=== PATIENT | female | born 1975 | race African-American/Black ===

== ENCOUNTER 2019-11-17 07:40 | Outpatient (CLI) | payer BC, SELFPAY ==
--- NOTE | ~2019-11-17 | MR_ITS ---
EXAMINATION: MR shoulder LT wo con DATE: 11/17/2019 09:04 INDICATION: Calcific tendinitis of the left shoulder TECHNIQUE: Magnetic resonance imaging (MRI) of the left shoulder was performed without intravenous co ntrast. Sequences included axial PD-weighted FS FSE, coronal oblique PD-weighted FS FSE, coronal obli que T2-weighted FS FSE, sagittal PD-weighted FS FSE, and sagittal T1-weighted SE. COMPARISON: None. FINDINGS: Coracoacromial arch: The acromion undersurface is curved in morphology (type II). The coracoacromial ligament is normal. M ild acromioclavicular osteoarthritis. Rotator cuff: Mild supraspinatus tendinopathy with 1.5 x 0.8 x 0.4 cm globular region of low signal intensity in th e distal tendon which would be consistent with calcific tendinitis. The infraspinatus, teres minor an d subscapularis tendons are normal. Normal rotator cuff muscle bulk and signal. Biceps tendon, glenoid labrum and glenohumeral cartilage: Long head of the biceps tendon is normal. Subtle linear increased signal extending peripherally into the substance of the superior labrum at the 12:00 position consistent with small labral tear. Glenohu meral cartilage is normal. Fluid: Physiologic amount of fluid in the glenohumeral joint and biceps tendon sheath. No loose osteochondra l bodies. No increased fluid signal in the subacromial/subdeltoid bursa to suggest bursitis. Bones: Normal marrow signal with no edema, fracture or abnormal marrow replacing process. IMPRESSION: 1. Mild supraspinatus tendinopathy without discrete tear but with 1.5 x 0.8 x 0.4 cm globular region of likely calcific tendinitis in the distal tendon. 2. Likely small tear at the 12:00 position of the glenoid labrum seen on only one coronal image which decreases specificity. Reviewed, dictated and finalized at location B. IMPRESSION: 1. Mild supraspinatus tendinopathy without discrete tear but with 1.5 x 0.8 x 0 .4 cm globular region of likely calcific tendinitis in the distal tendon. 2. Likely small tear at the 12:00 position of the glenoid labrum seen on only o ne coronal image which decreases specificity.
== END 2019-11-17 07:41 | disposition home or self-care (01) ==
LOC: ANHIMG 07:54
PROVIDERS: PCP Nurse Practitioner Family; Visit Provider Orthopaedic Surgery
DX: M75.32 Calcific tendinitis of left shoulder (principal)
CPT/HCPCS: 73221

== ENCOUNTER 2019-12-05 09:43 | Outpatient (CLI) | payer BC, SELFPAY ==
--- NOTE | 2019-12-05 09:45 | ECG_ITS ---
Measurements Intervals [place] Rate: 75 P: 13 [place]: 122 QRS: 47 QRSD: 87 T: 69 QT: 353 QTc: 395 Interpretive Statements SINUS RHYTHM NONSPECIFIC T-WAVE ABNORMALITY- HIGH LATERAL LEADS BASELINE ARTIFACT- I, II, III, AVR, AVL, AVF BORDERLINE ECG Electronically Signed On 12-05-2019 10:06:25 CDT by Weston Carcamo D.O.
[2019-12-05 10:19] LABS: Anion Gap 7 mmol/L (8-16); Blood Urea Nitrogen 21 mg/dL (7-17); Calcium 9.5 mg/dL (8.4-10.2); Carbon Dioxide 24 mmol/L (22-30); Chloride 105 mmol/L (98-107); Estimated Glomerular Filt Rate > 60; Glucose 91 mg/dL (65-105); Potassium 3.1 mmol/L (3.4-5.0); Sodium 136 mmol/L (137-145)
== END 2019-12-05 09:44 | disposition home or self-care (01) ==
LOC: ANHSURGERY 09:45
PROVIDERS: Anesthesiology; PCP Nurse Practitioner Family; Visit Provider Orthopaedic Surgery
DX: Z51.81 Encounter for therapeutic drug level monitoring (principal); I10 Essential (primary) hypertension; R94.31 Abnormal electrocardiogram [ECG] [EKG]
CPT/HCPCS: 36415; 80048; 93005

== ENCOUNTER 2019-12-10 01:06 | Outpatient (CLI) | payer BC, SELFPAY ==
[2019-12-10 17:49] LABS: SARS-CoV-2 RNA PCR Negative
== END 2019-12-10 01:07 | disposition home or self-care (01) ==
LOC: ANHCOVIDDT 01:07
PROVIDERS: PCP Nurse Practitioner Family; Visit Provider Orthopaedic Surgery
DX: Z01.812 Encounter for preprocedural laboratory examination (principal); Z20.828 Contact with and (suspected) exposure to other viral communicable diseases
CPT/HCPCS: 87635; C9803; U0003

== ENCOUNTER 2019-12-13 02:38 | Day surgery (SDC) | payer BC, SELFPAY ==
[2019-11-29 10:04] VITALS: BMI 30.9
[2019-12-13] VITALS (12 sets, daily range): BP systolic 99–148; BP diastolic 69–100; PULSE 82–122; RESP 10–20; TEMP 36.1–36.2; O2SAT 95–100
[2019-12-13] MEDS: ACETAMINOPHEN 500 MG TABLET 1000 MG PO (08:45)
--- NOTE | 2019-12-13 09:00 | WPDANESEPPF ---
Anes - Initial Pre Proc Eval Procedure: Operation Date: 12/13/19 10:30 Proposed Procedures p Left Shoulder Arthroscopy, Rotator Cuff Debridement, Subacromial Decompression, Possible Rotator Cuff Repair - Roque Danielson MD Date/Time: 12/13/19 09:00 Surgeon: Roque Danielson MD Pre Op Diagnosis: Calcific Tendonitis Left Shoulder Patient Data Age: 44 Gender: F Height: 5 ft 1 in Weight: 74.39 kg Last Vital Signs Temp 36.2 C L 12/13/19 08:48 Pulse 85 12/13/19 08:48 Resp 20 12/13/19 08:48 BP 99/69 L 12/13/19 08:48 Pulse Ox 100 12/13/19 08:48 Allergies Allergy/AdvReac Type Severity Reaction Status Date / Time No Known Allergies Allergy Unverified 12/13/19 08:55 Home Medications Medication Instructions Recorded Confirmed Type acetazolamide 500 mg 500 mg PO BID 11/07/19 12/13/19 History capsule,extended release amlodipine 2.5 mg tablet 2.5 mg PO DAILY 11/07/19 12/13/19 History hydrochlorothiazide 25 mg tablet 25 mg PO DAILY 11/07/19 12/13/19 History losartan 50 mg tablet 50 mg PO DAILY 11/07/19 12/13/19 History gabapentin 300 mg PO BID 11/29/19 12/13/19 History Patient hx anesthesia problems: none Family hx anesthesia problems: none PMFSH Past Medical History Medical History Calcific tendinitis of left shoulder Hypertension Family History Family History Mother Arthritis Social History Social History Smoking status: Never smoker Alcohol intake: never Substance use: never Spiritual care concerns: No Anes - Eval Final PreProcedure Day of Procedure 12/13/19 09:00 Patient weight: obese Heart: regular rate and rhythm Lungs: clear to auscultation Airway: Mallampati scale class II Neurological: alert and oriented Last oral intake: >/= 8 hours ASA classification: II Emergent: no Anesthetic plan: proceed Anesthesia type and monitoring: general ETT and standard monitoring Informed Consent: The patient's anesthetic plan and its attendant risks and benefits were discussed with the patient/family/POA. Questions were solicited and answers provided to the satisfaction of the patient/family/POA.
[2019-12-13] MEDS: LACTATED RINGERS 1,000 ML 30 ML IV CONT ×2 (09:14→12:14)
[2019-12-13] MEDS: KETOROLAC 15 MG/ML VIAL (*BKC) IV PUSH (09:22)
--- NOTE | 2019-12-13 09:55 | WPDHPUPDATE1 ---
History and Physical Update Update Date/Time: 12/13/19 09:55 History and Physical has been reviewed, including an updated exam of the patient. There are NO changes in the patient's condition. Risks, benefits, and alternatives have been discussed and questions answered. Patient agrees to proceed with procedure.
--- NOTE | 2019-12-13 10:12 | WPDANESPNB ---
Anes - Peripheral Nerve Block Date/Time: 12/13/19 10:12 I have discussed with the patient/family/POA the placement of a peripheral nerve block for post-operative pain management, including associated risks, benefits, complications, and side effects. Alternative methods of post-operative analgesia were detailed. Questions were solicited and answers provided to the satisfaction of the patient/family/POA. Time-Out: A pre-procedural Time-Out was completed immediately before starting the procedure and confirmed: Patient Identification, Site, Procedure, Patient Position and the Availability of Requisite Equipment. Clinical Indications: Acute post-operative pain management requested by the operative surgeon. Nerve Block Insertion Note Anes-nerve block: interscalene left Needle: 22 gauge, stimulating, insulated echogenic needle. Needle length: 50 mm Technique: nerve stimulation lost at (mA) and ultrasound Technique comment: mid2mg,[id number] Injectate: bupivacaine 0.5% with epi 5 mcg/ml (30ml) and dexamethasone (mg) (4mg) Observations: tolerated well Complications: none Procedure start time:: 958 Procedure end time:: 1004
[2019-12-13] MEDS: ceFAZolin 2 GM/D5W 50 ML 2 GM/50 ML BAG IVPB (10:23)
--- NOTE | 2019-12-13 12:17 | P.OP_ITS ---
Procedure Note - Detailed Date of procedure: 12/13/19 Pre-op diagnosis: Calcific Tendonitis Left Shoulder Post-op diagnosis: other ( 1. Calcific tendinitis left shoulder 2. Partial- thickness bursal side rotator cuff tear) Procedure performed: 1. Arthroscopic rotator cuff repair with excision of calcific tendinitis 2. Arthroscopic subacromial decompression Description of procedure: A moderate size focal nidus of calcium deposit at the supraspinatus tendon was identified. This corresponded with the MRI findings. After debridement, a small partial thickness tear was treated with 2 [id number] sutures. Subacromial decompression performed with a type 2 acromion. There were no other significant findings. Anesthesia: GLMA and regional Surgeon: Roque Danielson MD Estimated blood loss (mL): 20 Complications: No immediate complications Condition: stable Disposition: PACU Findings: Preoperative antibiotics were given. Interscalene block was performed. The patient was given a LMA anesthetic. She was carefully placed in the beach chair position. Examined injury anesthesia revealed no abnormal findings. Good normal range of motion. Introduction of the arthroscope through standard anterior and posterior arthroscopic portals. An accessory lateral portal was created. The articular joint appeared normal. There was mild hyperemia of the rotator cuff. Subscapularis and tendon fibers were normal. T he biceps appeared normal. Attention was turned to the subacromial space. A bursectomy was performed. There was mild bursitis. Subtle type 2 acromion. Subacromial decompression performed. The bulbous defect at the lateral margin of the supraspinatus was identified. This corresponded with the MRI. A needle was placed initially from a lateral position and the upper thin bursal tissue was cut. Typical calcium flaky substance was expressed. This was gently shaved and debrided. The defect had good bleeding tissue. The remaining tissue was quite robust and healthy. Simple [id number] suture repair was performed with 2 sutures. Percutaneous needle technique was used to minimize trauma to thethin bursal tissue.
[2019-12-13] MEDS: METOPROLOL TARTRATE INJ 5 MG/5 ML VIAL IV PUSH (12:57)
== END 2019-12-13 14:45 | disposition home or self-care (01) ==
PROVIDERS: PCP Nurse Practitioner Family; Visit Provider Orthopaedic Surgery
PROC: (CPT 29805; principal; 2019-12-13 10:30)
DX: M75.32 Calcific tendinitis of left shoulder (principal); M75.102 Unspecified rotator cuff tear or rupture of left shoulder, not specified as traumatic; G89.18 Other acute postprocedural pain; I10 Essential (primary) hypertension; E66.9 Obesity, unspecified; Z68.30 Body mass index [BMI] 30.0-30.9, adult
CPT/HCPCS: 29827; 29826; 64415; A4565; A9270; J0330; J0690; J1100; J1885; J2250; J2370; J2405; J2704; J3010; J7120

== ENCOUNTER 2020-04-12 12:08 | Outpatient (CLI) | payer BC, SELFPAY ==
[2020-04-12 13:18] LABS: HIV 1/2 Ab P24 Ag Result Negative (Negative)
[2020-04-12 13:20] LABS: Hepatitis B Surface Antigen Negative (Negative)
[2020-04-13 09:32] LABS: Rapid Plasma Reagin Non-Reactive (NonReactive)
== END 2020-04-12 12:09 | disposition home or self-care (01) ==
PROVIDERS: PCP Nurse Practitioner Family; Visit Provider Obstetrics & Gynecology
DX: Z11.3 Encounter for screening for infections with a predominantly sexual mode of transmission (principal); Z11.8 Encounter for screening for other infectious and parasitic diseases
CPT/HCPCS: 36415; 86592; 86695; 86696; 86703; 87340; G0432

== ENCOUNTER 2020-06-01 10:30 | Outpatient (CLI) | payer BC, SELFPAY ==
[2020-06-01 11:59] LABS: Thyroid Stimulating Hormone 0.898 uIU/mL (0.465-4.680)
[2020-06-01 12:23] LABS: Free T4 Free Thyroxine 0.91 ng/mL (0.78-2.19)
== END 2020-06-01 10:31 | disposition home or self-care (01) ==
PROVIDERS: PCP Nurse Practitioner Family; Visit Provider Obstetrics & Gynecology
DX: E04.9 Nontoxic goiter, unspecified (principal)
CPT/HCPCS: 36415; 84439; 84443

== ENCOUNTER 2020-08-07 18:01 | Outpatient (CLI) | payer BC, SELFPAY ==
--- NOTE | ~2020-08-07 | MM_ITS ---
EXAMINATION: MM screening jovany BI w rush HISTORY: Screening mammogram TECHNIQUE: Craniocaudal and mediolateral oblique 3-D tomosynthesis images were obtained and synthetic 2-D images were generated. CAD analysis was submitted and interpreted. COMPARISON: No prior mammogram is available for comparison at this institution. BREAST PARENCHYMAL COMPOSITION: There are scattered areas of fibroglandular density. FINDINGS: There is no evidence of suspicious mass, calcification, or architectural distortion to sugg est malignancy in either breast. There has been no suspicious interval change. IMPRESSION: 1. No mammographic evidence of malignancy. 2. Recommend routine screening mammography in one year. BI-RADS Category 1: Negative Reviewed, dictated and finalized at location A.
== END 2020-08-07 18:02 | disposition home or self-care (01) ==
LOC: ANHIMG 18:03
PROVIDERS: PCP Nurse Practitioner Family; Visit Provider Obstetrics & Gynecology
DX: Z12.31 Encounter for screening mammogram for malignant neoplasm of breast (principal)
CPT/HCPCS: 77063; 77067

== ENCOUNTER 2020-10-27 11:58 | Inpatient (IN) | payer BC, SELFPAY ==
[2020-10-27] VITALS (22 sets, daily range): BP systolic 68–116; BP diastolic 46–64; PULSE 70–89; RESP 11–23; TEMP 36.1–36.6; O2SAT 92–100; BMI 30.1
--- NOTE | ~2020-10-27 | XR_ITS ---
EXAMINATION: XR chest 2V DATE: 10/27/2020 12:47 INDICATION: Shortness of breath, COVID positive TECHNIQUE: PA and lateral views of the chest are obtained. COMPARISON: 05/05/2014 FINDINGS: There are airspace opacities of the right middle and lower lobes. There is no pleural effus ion or pneumothorax. The cardiomediastinal silhouette is normal. The visualized bones and soft tissue s are unremarkable. IMPRESSION: 1. Airspace opacities of the right middle and lower lobes, likely COVID 19 pneumonia. Reviewed, dictated and finalized at location A. IMPRESSION: 1. Airspace opacities of the right middle and lower lobes, likely COVID 19 pneu monia.
--- NOTE | ~2020-10-27 | XR_ITS ---
XR chest 1V portable 10/31/2020 07:18 Indication: Shortness of breath. Procedure: AP portable chest Comparison: 10/17 Findings: Patchy bilateral airspace disease. No significant effusion or pneumothorax. No acute osseou s abnormality. Heart size is normal. No acute osseous abnormality. Impression: 1: Progression of patchy bilateral airspace disease, right greater than left, compatible with pneumon ia. Reviewed, dictated and finalized at location A. Impression: 1: Progression of patchy bilateral airspace disease, right greater than left, c ompatible with pneumonia.
--- NOTE | ~2020-10-27 | CT_ITS ---
EXAMINATION: CT chest abdomen pelvis wo con DATE: 10/28/2020 01:19 INDICATION: Acute renal failure TECHNIQUE: Computed tomography (CT) of the chest, abdomen, and pelvis was performed without intraveno us contrast. Automated exposure control and iterative reconstruction technique were employed. The dos e-length product was 538.15 mGy-cm. COMPARISON: None FINDINGS: CHEST CT: Peripheral and lower lung predominant patchy and bandlike opacities in both lungs, right greater than left with appearance most suggestive of COVID pneumonia. Heart size is normal. No pericardial or ple ural effusion. Thoracic aorta is normal in caliber. No pathologically enlarged thoracic lymphadenopat hy. Bones are unremarkable. ABDOMEN/PELVIS CT: Gallbladder, liver, spleen, pancreas, bilateral adrenal glands are normal. 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 Mild caliectasis without simi hydronephrosis at the upper pole of the left kidney as well as at the right kidney. No nephrol ithiasis the kidneys or hydroureter. Multiple calcifications in the pelvis with location favoring phl eboliths over ureteral stones. Bladder is distended measuring 14.8 x 9.3 x 11.0 cm. Multiple phleboli ths in the pelvis along side the normal uterus and bilateral adnexa. Bowels including the appendix ar e normal. No free intraperitoneal gas or fluid. No pathologically enlarged abdominal or pelvic lympha denopathy. Bones are unremarkable. IMPRESSION: 1. Patchy bilateral lung disease with appearance most suggestive of COVID pneumonia. 2. Partially duplicated left renal collecting system with mild hydronephrosis at the lower pole moiet y with mild caliectasis at the upper pole of the left kidney as well as the right kidney likely relat ed to the prominent distention of the bladder. A few calcifications in the pelvis with locations favo ring phleboliths over ureteral stones. Reviewed, dictated and finalized at location A. IMPRESSION: 1. Patchy bilateral lung disease with appearance most suggestive of COVID pneum onia. 2. Partially duplicated left renal collecting system with mild hydronephrosis a t the lower pole moiety with mild caliectasis at the upper pole of the left kid nurys as well as the right kidney likely related to the prominent distention of t he bladder. A few calcifications in the pelvis with locations favoring phleboli ths over ureteral stones.
--- NOTE | 2020-10-27 12:11 | ECG_ITS ---
Measurements Intervals [place] Rate: 90 P: 53 [place]: 111 QRS: 30 QRSD: 87 T: 54 QT: 360 QTc: 441 Interpretive Statements SINUS RHYTHM WITH SHORT [place] INTERVAL POSSIBLE LEFT ATRIAL ENLARGEMENT NONSPECIFIC ST & T-WAVE ABNORMALITY- ANTEROLAT/INF LEADS BORDERLINE ECG Electronically Signed On 10-27-2020 19:56:21 CDT by Weston Carcamo D.O.
[2020-10-27 12:40] LABS: Basophils Percent Auto 0.2 % (0.2-1.2); Eosinophils Absolute Auto 0.1 K/mm3 (0-0.3); Eosinophils Percent Auto 1.1 % (0-4.4); Hematocrit 38.7 % (37.0-47.0); Hemoglobin 13.2 g/dL (12.0-15.0); Immature Granulocyte Absolute 0.09 K/mm3 (0.00-0.031); Immature Granulocyte Percent A 1.1 % (0-0.5); Lymphocytes Absolute Auto 1.24 K/mm3 (0.9-3.2); Lymphocytes Percent Auto 14.9 % (18.3-44.2); Mean Corpuscular HGB Conc 34.1 g/dl (32-36); Mean Corpuscular Hemoglobin 28.4 pg (26-34); Mean Corpuscular Volume 83.4 fl (80-100); Mean Platelet Volume 9.9 fl (7.4-10.4); Monocytes Absolute Auto 0.6 K/mm3 (0.1-0.6); Monocytes Percent Auto 6.9 % (2.6-8.5); Neutrophils Absolute Auto 6.3 K/mm3 (1.3-6.7); Neutrophils Percent Auto 75.8 % (45.5-73.1); Platelet Count Result 255 k/mm3 (150-375); Red Blood Count 4.64 M/mm3 (4.2-5.4); Red Cell Distribution Width 13.1 % (11.5-14.5); White Blood Count 8.3 K/mm3 (4.5-10.0)
[2020-10-27 13:01] LABS: Anion Gap 12 mmol/L (8-16); Blood Urea Nitrogen 36 mg/dL (7-17); Calcium 8.8 mg/dL (8.4-10.2); Carbon Dioxide 24 mmol/L (22-30); Chloride 99 mmol/L (98-107); Estimated CRCL calculation 22 ml/min; Estimated Glomerular Filt Rate 21; Glucose 139 mg/dL (65-110); Potassium 2.1 mmol/L (3.4-5.0); Sodium 135 mmol/L (137-145)
[2020-10-27 14:14] LABS: Alanine Aminotransferase 133 U/L (4-35); Albumin Level 3.8 g/dL (3.5-5.1); Alkaline Phosphatase 88 U/L (38-126); Aspartate Amino Transferase 72 U/L (14-36); Bilirubin,Total 0.7 mg/dL (0.2-1.3)
[2020-10-27 14:15] LABS: Alveolar/Arterial O2 Gradient 70.5 mmHg; Base Excess ABG 0.5 mEq/l (+/-2.0); Fractional Inspired Oxygen 21 %; HCO3 ABG 24.8 mEq/l (22.0-26.0); Oxygen Content ABG 11.6 %vol (16.0-22.0); Oxyhemoglobin 62.4 % THb (90.0-100.0); PCO2 ABG 38.7 mmHg (35.0-45.0); PO2 FiO2 Ratio Arterial Blood 1.57 %; Total Hemoglobin 13.2 g/dL (12.0-18.0); pH ABG 7.424 (7.350-7.450)
--- NOTE | 2020-10-27 14:17 | ED.GENADULT ---
HPI - General Adult General Chief complaint: Unspecified Stated complaint: Diagnosed with COVID and I'm having symptoms Time Seen by Provider: 10/27/20 13:42 Source: patient and RN notes reviewed Mode of arrival: ambulatory Limitations: no limitations History of Present Illness HPI narrative: Patient is 45 years old -Malaysian female presents with cough and symptom which started on October 16, this is positive on October 18, came because of headache, general body aches and feeling miserable over the last days. History of goiter, patient did not get vaccinated for COVID-19. Patient denies any vomiting or diarrhea. Related Data Home Medications Medication Instructions Recorded Confirmed amlodipine 2.5 mg tablet 2.5 mg PO DAILY 11/07/19 09/13/20 hydrochlorothiazide 25 mg tablet 25 mg PO DAILY 11/07/19 09/13/20 losartan 50 mg tablet 50 mg PO DAILY 11/07/19 09/13/20 gabapentin 300 mg PO BID 11/29/19 09/13/20 Allergies Allergy/AdvReac Type Severity Reaction Status Date / Time No Known Allergies Allergy Verified 10/27/20 13:52 Review of Systems Review of Systems: CONSTITUTIONAL: Denies fever, chills, or sweats. EYES: Denies visual changes, redness, or discharge. ENT: Denies rhinorrhea, congestion, sore throat, or otalgia. CARDIOVASCULAR: Denies chest pain, palpitations, or edema. RESPIRATORY: Denies cough or dyspnea. GASTROINTESTINAL: Denies abdominal pain, nausea, vomiting, or diarrhea. GENITOURINARY: Denies dysuria or hematuria. SKIN: Denies rash or itching. MUSCULOSKELETAL: Denies back pain, joint pain, or myalgia. NEUROLOGIC: Denies headache, numbness, or weakness. PSYCHIATRIC: Denies anxiety or depression. [facility] Past Medical History Medical History Calcific tendinitis of left shoulder HSV (herpes simplex virus) infection Type 1 Hypertension Vaginal delivery x2 Family History Family History Mother Arthritis Social History Social History Smoking status: Never smoker Alcohol intake: never Substance use: never Spiritual care concerns: No Exam Narrative: General appearance: Well-developed, well-nourished Skin: Normal color Head: Normocephalic, nontraumatic Eyes: Clear conjunctiva ENT: Oropharynx normal, ears normal, nose normal Neck: Supple, nontender Chest and respiratory: Airway patent, no respiratory distress, no accessory muscle use Heart: Regular rate/rhythm Abdomen: Soft, nontender, no organomegaly, quiet bowel sounds Vascular: Normal peripheral pulses, normal capillary refill. Musculoskeletal: Normal range of motion, nontender back Neurologic: Alert and oriented ?3, MEDIA COORDINATOR is normal as tested, no gross motor deficit Course Course Emergency Course: Stable Consultations Consultation #1: DR YING Date: 10/27/20 Time: 15:25 Vital Signs Vital signs: Vital Signs Temperature 36.5 C 10/27/20 12:08 Pulse Rate 82 10/27/20 12:08 Respiratory Rate 16 10/27/20 12:08 Blood Pressure 116/58 L 10/27/20 12:08 Pulse Oximetry 99 10/27/20 12:08 Temperature 36.5 C 10/27/20 12:08 Pulse Rate 84 10/27/20 13:26 Respiratory Rate 16 10/27/20 12:08 Blood Pressure 116/58 L 10/27/20 12:08 Pulse Oximetry 99 10/27/20 12:08 Medical Decision Making [facility] Narrative Medical decision making narrative: Covid infection is my concern. Differential diagnosis as below. Labs, chest x-ray, UA ordered. Further plan to follow Differential Diagnosis Differential Diagnosis: Covid pneumonia, viral syndrome, electrolyte imbalance, hypoxia Vital Signs [place]
[2020-10-27 14:18] LABS: PO2 ABG 32.9 mmHg (80.0-100.0)
[2020-10-27 14:19] LABS: Device ROOM AIR; Modified Allen's Test Pass; Oxygen Saturation ABG 64.9 % (95.0-100.0); Site Drawn LEFT RADIAL
[2020-10-27] MEDS: SODIUM CHLORIDE 0.9% IV 1,000 ML 999 ML IV CONT ×2 (14:56→21:04)
[2020-10-27] MEDS: POTASSIUM CHLORIDE 20 MEQ TABLET 40 MEQ PO (14:56)
--- NOTE | 2020-10-27 16:14 | PM.IMHP ---
H&P: HPI History of Present Illness Date/Time: 10/27/20 14:30 Chief Complaint: still having symptoms of COVID Narrative: 45-year-old female with past medical history of hypertension, Jose-Soulier syndrome, and peripheral neuropathy who presented to the ER from home due to persistent COVID symptoms. The patient reports that she was diagnosed with COVID on October 18, 2020 after having initial onset of symptoms on October 16. Her initial symptoms involved diarrhea with numerous large amounts of incontinent stool for the 1st week of symptoms. She also had accompanying nausea and vomiting. She has been having low-grade temperatures but her fevers have for the most part resolved. She has been having a mild nonproductive cough and persistent shortness of breath but her cough and shortness of breath have remained the same or improved since onset of symptoms. She has not had any loss of sense of taste or smell. She denies any abdominal pain. She has been generally fatigued. She does have a chronic history of hypertension and has been taking her antihypertensives despite not feeling well. She has noticed over the last couple of days feeling lightheaded when she stands up. She checked her blood pressure yesterday and it was low with her systolic blood pressure in the 80s. The patient had a couple of blood pressures that were in the 80 systolic while I was evaluating her. All those eased did not make it to the nursing documentation. She has persistent mild headache. Her generalized body aches have worsened over the last couple of days. She reports that she has been having flank pain and pain down bilateral lower back up into her lower thighs has worsened over the last several days. She has not noticed any lower extremity swelling. She has not had a fever in several days. She did not receive COVID vaccine. Review of Systems Review of Systems: 12 systems were reviewed with pertinent positives and negatives per HPI. Except as documented in the HPI, all other systems were reviewed and are negative. [facility] Past Medical History Medical History (Updated 10/27/20 @ 20:50 by Vesna Thomas DO) Calcific tendinitis of left shoulder Goiter HSV (herpes simplex virus) infection Type 1 Hypertension Obesity (BMI 30.0-34.9) Vaginal delivery x2 Surgical History Surgical History (Updated 10/27/20 @ 20:55 by Vesna Thomas DO) History of repair of left rotator cuff (11/2019) History of umbilical hernia repair As a small child Family History Family History (Updated 10/27/20 @ 20:53 by Vesna Thomas DO) Mother Arthritis Hypertension Diabetes mellitus Cerebrovascular accident Father , at age 64 Colon cancer Social History Social History (Updated 10/27/20 @ 20:55 by Vesna Thomas DO) Social History: 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 She has 2 adult sons 1 of which live with her. She is a lifelong nonsmoker, she does not drink alcohol or use illicit substances. Smoking status: Never smoker Alcohol intake: never Substance use: never Spiritual care concerns: No Meds Home Medications and Allergies Home Medications Medication Instructions Recorded Confirmed Type amlodipine 2.5 mg tablet 2.5 mg PO DAILY 11/07/19 10/27/20 History hydrochlorothiazide 25 mg tablet 25 mg PO DAILY 11/07/19 10/27/20 History losartan 50 mg tablet 50 mg PO DAILY 11/07/19 10/27/20 History gabapentin 300 mg PO BID 11/29/19 10/27/20 History medroxyprogesterone 150 mg/mL 150 mg IM [id number] #1 ml 06/01/20 10/27/20 Rx intramuscular syringe metronidazole 0.75 % vaginal gel 1 appful VAGINAL BID 5 Days #70 g 07/20/20 10/27/20 Rx Allergies Allergy/AdvReac Type Severity Reaction Status Date / Time latex Allergy Rash Verified 10/27/20 16:53 Vital Signs Vital Signs - 24 hr 10/27/20 12:08 10/27/20 13:26 10/27/20 13:32 Temperature 97.7 F Pulse Rate 82 84 75 Respiratory Rate 16
[2020-10-27] MEDS: POTASSIUM CHLORIDE 20 MEQ TABLET.ER 40 MEQ PO (16:48)
--- NOTE | 2020-10-27 16:58 | ADMGEN ---
This patient, Karen Blakely, was admitted to 3 [facility] Surg Room 329-01 at 1625. Report received from BOO Padron. Patient/family oriented to hospital policies and general routines including ID bracelet, bed and alarms, visiting hours, pain management, procedures, bathroom and other care routines, personal items, smoking policy, room service/diet, and visiting hours. Information on how to activate the Rapid Response Team has been discussed. Patient/Family are encouraged to report perceived risks to care and to ask questions if they do not understand what they are told or what they should do.
[2020-10-27] MEDS: SODIUM CHLORIDE 0.9% IV 1,000 ML 125 ML IV CONT (19:36)
[2020-10-27] MEDS: GABAPENTIN 300 MG CAPSULE PO (21:04)
[2020-10-27 21:23] LABS: Anion Gap 10 mmol/L (8-16); Blood Urea Nitrogen 32 mg/dL (7-17); Calcium 7.9 mg/dL (8.4-10.2); Carbon Dioxide 21 mmol/L (22-30); Chloride 99 mmol/L (98-107); Estimated CRCL calculation 28 ml/min; Estimated Glomerular Filt Rate 28; Glucose 143 mg/dL (65-110); Sodium 130 mmol/L (137-145)
[2020-10-27 21:24] LABS: Magnesium 2.5 mg/dL (1.6-2.3)
[2020-10-28] MEDS: SODIUM CHLORIDE 0.9% IV 1,000 ML 999 ML IV CONT ×2 (00:19→02:02)
[2020-10-28 00:54] VITALS: BP 94/52
[2020-10-28 04:00] VITALS: BP 97/64; PULSE 81; PULSE 86; RESP 20; TEMP 36; O2SAT 93
[2020-10-28 07:18] LABS: Basophils Percent Auto 0.2 % (0.2-1.2); Eosinophils Absolute Auto 0.2 K/mm3 (0-0.3); Eosinophils Percent Auto 2.5 % (0-4.4); Hematocrit 32.9 % (37.0-47.0); Hemoglobin 10.7 g/dL (12.0-15.0); Immature Granulocyte Absolute 0.07 K/mm3 (0.00-0.031); Immature Granulocyte Percent A 0.8 % (0-0.5); Lymphocytes Absolute Auto 1.36 K/mm3 (0.9-3.2); Lymphocytes Percent Auto 16.2 % (18.3-44.2); Mean Corpuscular HGB Conc 32.5 g/dl (32-36); Mean Corpuscular Hemoglobin 28.2 pg (26-34); Mean Corpuscular Volume 86.8 fl (80-100); Mean Platelet Volume 9.7 fl (7.4-10.4); Monocytes Absolute Auto 0.7 K/mm3 (0.1-0.6); Monocytes Percent Auto 7.8 % (2.6-8.5); Neutrophils Absolute Auto 6.1 K/mm3 (1.3-6.7); Neutrophils Percent Auto 72.5 % (45.5-73.1); Platelet Count Result 226 k/mm3 (150-375); Red Blood Count 3.79 M/mm3 (4.2-5.4); Red Cell Distribution Width 13.3 % (11.5-14.5); White Blood Count 8.4 K/mm3 (4.5-10.0)
[2020-10-28 07:35] LABS: Anion Gap 5 mmol/L (8-16); Blood Urea Nitrogen 22 mg/dL (7-17); Calcium 7.1 mg/dL (8.4-10.2); Carbon Dioxide 16 mmol/L (22-30); Chloride 115 mmol/L (98-107); Estimated CRCL calculation 46 ml/min; Estimated Glomerular Filt Rate 50; Glucose 99 mg/dL (65-110); Magnesium 2.2 mg/dL (1.6-2.3); Phosphorus 3.3 mg/dL (2.5-4.5); Potassium 2.9 mmol/L (3.4-5.0); Sodium 136 mmol/L (137-145)
[2020-10-28 08:00] VITALS: BP 91/55; PULSE 74; PULSE 79; RESP 18; TEMP 36.2; O2SAT 99
[2020-10-28] MEDS: GABAPENTIN 300 MG CAPSULE PO ×2 (09:05→16:23)
[2020-10-28] MEDS: POTASSIUM CHLORIDE 20 MEQ TABLET.ER 40 MEQ PO ×2 (09:05→16:23)
[2020-10-28] MEDS: ENOXAPARIN 30 MG/0.3 ML SYRINGE SUB-Q (09:06)
--- NOTE | 2020-10-28 10:02 | PM.CNNEP ---
Assessment and Plan Assessment and plan (1) BRYAN (acute kidney injury): Code(s): N17.9 - Acute kidney failure, unspecified Status: Acute Assessment and Plan: multifactorial etiology: - prerenal factors (diarrhea and poor oral intake) - hypotension (systolic readings in the 70s - 80s) - ongoing use of MONICA-I and diuretics [employer] - possible COVID-19 improvement noted since admission - normal creatinine at baseline follow-up on CT scan of A/P continue to hold BP medications maximize effort to maintain MAP and optimize renal perfusion follow trend of repeat labs and UOP (2) COVID-19 virus infection: Code(s): U07.1 - COVID-19 Status: Acute Assessment and Plan: not hypoxic at this time treat supportively for now (3) Hypokalemia: Code(s): E87.6 - Hypokalemia Status: Acute Assessment and Plan: due to previous GI losses and poor oral intake magnesium okay replete as needed Discussed case with Dr. Thomas yesterday afternoon. Will continue to follow. History of Present Illness Reason for Consult Consult date: 10/28/20 Reason for consult: acute renal failure Chief Complaint Chief complaint: COVID Infection, BRYAN, Hypokalemia History of Present Illness Narrative: The patient is a 45-year-old female with past medical history as outlined below who presented to [facility] Emergency Room from home due to persistent COVID symptoms. The patient was recently diagnosed with COVID-19 about 10 days ago after having initial symptoms that started on October 17, 2011. these symptoms include diarrhea with large amounts of incontinent stool accompanied by nausea and vomiting with progression to low-grade temperatures/fevers. Other associated symptoms included mild nonproductive cough and shortness of breath which have remained stable if not improved since onset. She denies any loss of sense of taste or smell but endorses generalized fatigue. More recently, she has noted lightheadedness and almost near syncope particularly when she stands up. She checked her blood pressure yesterday on the day of admission and was noted to be in the 80 systolic range despite the fact that she has a history of hypertension. He does report that even though she was not feeling very well and along with the issues of diarrhea, she continued to take her antihypertensive medications. However, her generalized body aches and just not feeling well Along with generalized body aches and flank pain or other real reason that she presented to the emergency room. Workup and evaluation the emergency room did demonstrate significant hypotension with systolic BP readings in the 80s. She received aggressive IV fluid boluses with improvement in her blood pressure. Routine blood test demonstrated a marked decline in her renal function in association with significant hypokalemia. Given her acute kidney injury, hypokalemia, recent COVID-19 positivity, and a constellation of symptoms that led to her presentation, she was admitted the hospital for further evaluation therapy. Since her admission, she has continued to have bouts of low blood pressure requiring frequent boluses of IV fluids with relative good response. Her repeat labs this morning still show persistence of her hypokalemia but with improvement in her renal function/creatinine. Renal consultation was requested due to her acute kidney injury/acute renal failure. Presumably, given the history above, her decline in her kidney function is more related to volume depletion and relative hypotension given improvement in her overall renal function with IV fluid resuscitation in the last 24 hours. This decline in her kidney function was likely potentiate it by ongoing use of her antihypertensive medications which included hydrochlorothiazide and losartan. She did have a CT scan of her abdomen and pelvis y
[2020-10-28 12:00] VITALS: BP 93/59; PULSE 82; PULSE 83; RESP 18; TEMP 36.7; O2SAT 99
[2020-10-28 14:42] LABS: Add Urine Microscopic? NO; Appearance Urine Clear (Clear); Bilirubin Urine Negative (Negative); Blood Urine Negative (Negative); Color Urine Straw (Yellow); Glucose Urine UA Negative (Negative); Ketones Urine Negative (Negative); Leukocyte Esterase Ur Negative LEU/UL (Negative); Nitrate Urine Negative (Negative); Protein Urine Negative (Negative); Specific Grav Ur 1.006 (1.001-1.035); Urobilinogen Urine Negative mg/dL (<2.0)
--- NOTE | 2020-10-28 14:57 | PM.IMPN ---
Progress Note: A&P Assessment and Plan (1) COVID-19 virus infection: Code(s): U07.1 - COVID-19 Status: Acute Assessment and Plan: -Diagnosed 10/18/2020, no respiratory symptoms holding off on steroids and remdesivir -infection is presenting with diarrhea, continue supportive care, replete electrolytes as needed (2) BRYAN (acute kidney injury): Code(s): N17.9 - Acute kidney failure, unspecified Status: Acute Assessment and Plan: -elevated creatinine 1.4 down from 2.9, secondary to diarrhea and hypotension, may have ATN, prerenal etiology likely -continue IV fluids normal saline at 125 cc/hour especially considering hypotension, may need to give further IV fluid boluses if worsening hypotension (3) Acute hypokalemia: Code(s): E87.6 - Hypokalemia Status: Acute Assessment and Plan: -Repleting potassium 2.9, giving 40 mEq potassium chloride b.i.d.., will recheck tomorrow morning -hypokalemia from GI loss -Zofran for nausea Additional Plan Diet: Regular DVT prophylaxis: Lovenox Code status: Full code Disposition: Pending clinical course, likely home 2-3 days Time Spent With Patient Time with patient: 25 - 35 minutes Subjective Date/time seen: 10/28/20 14:57 Patient examined. She has no new complaints today, no respiratory issues. She still has persistent diarrhea. Patient continuing IV fluids for her hypotension and repeating electrolytes for diarrhea losses. Will continue supportive care. Patient denies fever, chills, nausea, vomiting, dyspnea, chest pain, abdominal pain. Review of Systems Review of Systems: All systems reviewed & are unremarkable except as noted in HPI and below Exam Narrative: - GENERAL: Pleasant female in no acute distress laying comfortably in bed. - EYES: EOMI. Anicteric. - HENT: Moist mucous membranes. - LUNGS: Clear to auscultation bilaterally, no wheezing, rhonchi, or rales. - CARDIOVASCULAR: Regular rate and rhythm. No murmur. No JVD. - ABDOMEN: Soft, non-tender and non-distended. No palpable masses. Bowel sounds present in all 4 quadrants - EXTREMITIES: No edema. Peripheral pulses 2+. Non-tender. - NEUROLOGIC: No focal neurological deficits. CN II-XII grossly intact. - PSYCHIATRIC: Awake, Alert and oriented x 3. Appropriate mood and affect. - SKIN: No rashes or lesions. Warm. - LYMPH: No cervical lymphadenopathy. Objective Data Vital Signs Vital Signs: Vital Signs - 24 hr 10/27/20 15:00 10/27/20 15:15 10/27/20 15:30 Temperature Pulse Rate 83 80 76 Respiratory Rate 22 H 14 16 Blood Pressure Pulse Oximetry 99 99 99 10/27/20 15:45 10/27/20 16:00 10/27/20 16:30 Temperature 36.1 C L Pulse Rate 72 78 89 Respiratory Rate 19 17 18 Blood Pressure 99/60 L Pulse Oximetry 99 99 100 10/27/20 20:00 10/27/20 21:18 10/27/20 23:59 Temperature 36.6 C 36.3 C L Pulse Rate 77 70 Respiratory Rate 20 18 Blood Pressure 83/49 L 68/46 L 77/48 L Pulse Oximetry 98 92 10/28/20 00:54 10/28/20 04:00 10/28/20 08:00 Temperature 36.0 C L 36.2 C L Pulse Rate 81 74 Respiratory Rate 20 18 Blood Pressure 94/52 L 97/64 L 91/55 L Pulse Oximetry 93 99 10/28/20 12:00 Temperature 36.7 C Pulse Rate 83 Respiratory Rate 18 Blood Pressure 93/59 L Pulse Oximetry 99 Intake/Output Intake/Output: Intake & Output 10/25/20 10/26/20 10/27/20 10/28/20 23:59 23:59 23:59 23:59 Intake Total 2600 2630 Output Total 2400 Balance 2600 230 Meds/Results Medications: Active Medications Generic Name Dose Route Start Last Admin Trade Name Freq PRN Reason Stop Dose Admin Enoxaparin Sodium 30 mg 10/28/20 09:00 10/28/20 09:06 Enoxaparin 30 Mg/0.3 Ml Syringe SUB-Q 30 mg DAILY PHILIP Administration Gabapentin 300 mg 10/27/20 19:00 10/28/20 09:05 Gabapentin 300 Mg Capsule PO 300 mg BID PHILIP Administration Sodium Chloride 1,000 mls @ 125 mls/hr 10/27/20 14:40 10/28/20 04:21 Normal Saline Iv IV CONT
[2020-10-28 16:00] VITALS: BP 106/63; PULSE 85; PULSE 86; RESP 18; TEMP 36.5; O2SAT 100
[2020-10-28] MEDS: SODIUM CHLORIDE 0.9% IV 1,000 ML 125 ML IV CONT (16:22)
[2020-10-28 20:00] VITALS: BP 104/70; PULSE 82; PULSE 87; RESP 18; TEMP 36.5; O2SAT 95
[2020-10-29] VITALS (7 sets, daily range): BP systolic 100–127; BP diastolic 56–72; PULSE 64–104; RESP 18–20; TEMP 36.1–37.3; O2SAT 96–100
[2020-10-29] MEDS: ACETAMINOPHEN 325 MG TABLET 650 MG PO (04:37)
--- NOTE | 2020-10-29 07:17 | PM.IMPN ---
Progress Note: A&P Assessment and Plan (1) COVID-19 virus infection: Code(s): U07.1 - COVID-19 Status: Acute Assessment and Plan: -Diagnosed 10/18/2020. She is not on oxygen but has been complaining of shortness of breath with minimal exertion like walking in the room. She does not have any cough. Her chest CT does show bilateral airspace disease which is patchy in nature likely secondary to COVID-19 pneumonia. I will start her on steroid with dexamethasone 6 mg IV once a day. She is out of window for remdisivir. Check inflammatory markers and D-dimer in the a.m.. Repeat chest x-ray in 2 days time. -her symptoms are mainly GI symptoms with significant diarrhea, continue supportive care, replete electrolytes as needed (2) BRYAN (acute kidney injury): Code(s): N17.9 - Acute kidney failure, unspecified Status: Acute Assessment and Plan: -creatinine was 2.9 at the time of presentation likely secondary to diarrhea and hypotension, may have ATN, prerenal etiology -I will stop IV fluids. Her creatinine is 1.02 today which is down from 2.9 at the time of presentation. (3) Acute hypokalemia: Code(s): E87.6 - Hypokalemia Status: Acute Assessment and Plan: -repleted today with her serum potassium being 2.8. Continue to monitor. -hypokalemia likely from GI loss -Zofran for nausea (4) Hypertension: Code(s): I10 - Essential (primary) hypertension Status: Acute Assessment and Plan: Borderline hypotensive. Her amlodipine, losartan and hydrochlorothiazide has been put on hold. Resume if blood pressure start to trend up. Additional Plan Diet: Regular DVT prophylaxis: Lovenox Code status: Full code Disposition: Pending clinical course likely home 2-3 days Subjective Date/time seen: 10/29/20 07:17 Her blood pressure is borderline low. She has been complaining of generalized aches and pains. She was on room air but has been complaining of exertional shortness of breath. She denied have any cough. Her CT of the chest showed patchy airspace disease likely secondary to COVID-19 pneumonia. He has been diagnosed to have COVID-19 at [place] on 10/18. She had 1 episode of diarrhea today. She denied have any nausea vomiting or abdominal pain. Review of Systems Review of Systems: All systems reviewed & are unremarkable except as noted in HPI and below Exam Narrative: - GENERAL: Pleasant female in no acute distress laying comfortably in bed. - LUNGS: Clear to auscultation bilaterally, no wheezing, rhonchi, or rales. - CARDIOVASCULAR: S1-S2 - ABDOMEN: Soft, non-tender and non-distended. - EXTREMITIES: No edema. - NEUROLOGIC: Alert oriented - PSYCHIATRIC: Awake, Alert and oriented x 3. Objective Data Vital Signs Vital Signs: Vital Signs - 24 hr 10/28/20 08:00 10/28/20 12:00 10/28/20 16:00 Temperature 36.2 C L 36.7 C 36.5 C Pulse Rate 74 82 86 Respiratory Rate 18 18 18 Blood Pressure 91/55 L 93/59 L 106/63 Pulse Oximetry 99 99 100 10/28/20 20:00 10/29/20 00:00 10/29/20 04:00 Temperature 36.5 C 37.0 C 37.3 C Pulse Rate 82 64 84 Respiratory Rate 18 18 18 Blood Pressure 104/70 100/60 101/56 L Pulse Oximetry 95 96 97 Intake/Output Intake/Output: Intake & Output 10/26/20 10/27/20 10/28/20 10/29/20 23:59 23:59 23:59 23:59 Intake Total 2600 5310 240 Output Total 4200 1900 Balance 2600 1110 -1660 Meds/Results Medications: Active Medications Generic Name Dose Route Start Last Admin Trade Name Freq PRN Reason Stop Dose Admin Acetaminophen 650 mg 10/29/20 03:54 10/29/20 04:37 Acetaminophen 325 Mg Tablet PO 650 mg Q6H PRN Administration Mild Pain (1-3) or Fever Enoxaparin Sodium 30 mg 10/28/20 09:00 10/28/20 09:06 Enoxaparin 30 Mg/0.3 Ml Syringe SUB-Q 30 mg DAILY PHILIP Administration Gabapentin 300 mg 10/27/20 19:00 10/28/20 16:23 Gabapentin 300 Mg Capsule PO 300 mg BID PHILIP
[2020-10-29] MEDS: POTASSIUM CHLORIDE 20 MEQ TABLET.ER 40 MEQ PO ×3 (08:00→18:31)
[2020-10-29] MEDS: GABAPENTIN 300 MG CAPSULE PO ×2 (08:52→18:32)
[2020-10-29] MEDS: ENOXAPARIN 30 MG/0.3 ML SYRINGE SUB-Q (08:53)
[2020-10-29] MEDS: SODIUM CHLORIDE 0.9% IV 1,000 ML 125 ML IV CONT (08:59)
[2020-10-29 09:07] LABS: Anion Gap 4 mmol/L (8-16); Blood Urea Nitrogen 14 mg/dL (7-17); Calcium 7.9 mg/dL (8.4-10.2); Carbon Dioxide 21 mmol/L (22-30); Chloride 111 mmol/L (98-107); Estimated CRCL calculation 63 ml/min; Estimated Glomerular Filt Rate > 60; Glucose 79 mg/dL (65-110); Magnesium 2.2 mg/dL (1.6-2.3); Potassium 2.8 mmol/L (3.4-5.0); Sodium 136 mmol/L (137-145)
--- NOTE | 2020-10-29 22:29 | PC.NURSE ---
Notified lab of new lab order. Said someone was going to be up.
[2020-10-29 23:15] LABS: Anion Gap 7 mmol/L (8-16); Blood Urea Nitrogen 13 mg/dL (7-17); Calcium 8.6 mg/dL (8.4-10.2); Carbon Dioxide 20 mmol/L (22-30); Chloride 109 mmol/L (98-107); Estimated CRCL calculation 78 ml/min; Estimated Glomerular Filt Rate > 60; Glucose 216 mg/dL (65-110); Potassium 3.9 mmol/L (3.4-5.0); Sodium 136 mmol/L (137-145)
[2020-10-30] VITALS (11 sets, daily range): BP systolic 111–139; BP diastolic 68–85; PULSE 75–112; RESP 16–20; TEMP 36–36.5; O2SAT 95–100
[2020-10-30] MEDS: CALCIUM CARBONATE (TUMS) 500 MG (200 MG ELEMENTAL) PO (05:55)
[2020-10-30 07:09] LABS: Basophils Percent Auto 0.2 % (0.2-1.2); Eosinophils Percent Auto 0.1 % (0-4.4); Hematocrit 32.5 % (37.0-47.0); Hemoglobin 10.5 g/dL (12.0-15.0); Immature Granulocyte Absolute 0.17 K/mm3 (0.00-0.031); Immature Granulocyte Percent A 1.4 % (0-0.5); Lymphocytes Absolute Auto 0.98 K/mm3 (0.9-3.2); Lymphocytes Percent Auto 7.9 % (18.3-44.2); Mean Corpuscular HGB Conc 32.3 g/dl (32-36); Mean Corpuscular Hemoglobin 28.8 pg (26-34); Mean Platelet Volume 10.1 fl (7.4-10.4); Monocytes Absolute Auto 0.7 K/mm3 (0.1-0.6); Monocytes Percent Auto 5.6 % (2.6-8.5); Neutrophils Absolute Auto 10.6 K/mm3 (1.3-6.7); Neutrophils Percent Auto 84.8 % (45.5-73.1); Platelet Count Result 293 k/mm3 (150-375); Red Blood Count 3.65 M/mm3 (4.2-5.4); Red Cell Distribution Width 13.3 % (11.5-14.5); White Blood Count 12.4 K/mm3 (4.5-10.0)
[2020-10-30 07:44] LABS: D Dimer 0.64 ug/mL (<0.48)
[2020-10-30] MEDS: GABAPENTIN 300 MG CAPSULE PO ×2 (08:55→17:12)
[2020-10-30] MEDS: ENOXAPARIN 30 MG/0.3 ML SYRINGE SUB-Q (08:55)
[2020-10-30 09:32] LABS: Anion Gap 9 mmol/L (8-16); Blood Urea Nitrogen 13 mg/dL (7-17); CRP 4.7 mg/dL (<1.0); Calcium 8.5 mg/dL (8.4-10.2); Carbon Dioxide 17 mmol/L (22-30); Chloride 109 mmol/L (98-107); Estimated CRCL calculation 78 ml/min; Estimated Glomerular Filt Rate > 60; Glucose 116 mg/dL (65-110); Potassium 3.6 mmol/L (3.4-5.0); Sodium 135 mmol/L (137-145)
--- NOTE | 2020-10-30 12:17 | PM.IMPN ---
Progress Note: A&P Assessment and Plan (1) COVID-19 virus infection: Code(s): U07.1 - COVID-19 Status: Acute Assessment and Plan: Diagnosed 10/18/2020. She is not on oxygen but has been complaining of shortness of breath with minimal exertion like walking in the room. Her chest CT does show bilateral airspace disease which is patchy in nature likely secondary to COVID-19 pneumonia. Continue her on steroid with dexamethasone 6 mg IV once a day. She is out of window for remdisivir. CRP is 4.7. D-dimer is minimally elevated which is 0.64. Repeat chest x-ray in a.m.. Her symptoms are mainly GI symptoms with significant diarrhea, continue supportive care, replete electrolytes as needed. (2) BRYAN (acute kidney injury): Code(s): N17.9 - Acute kidney failure, unspecified Status: Acute Assessment and Plan: -creatinine was 2.9 at the time of presentation likely secondary to diarrhea and hypotension, may have ATN, prerenal etiology - She was hydrated with IV fluids and her creatinine was back to within normal range. IV fluids has already been stopped (3) Acute hypokalemia: Code(s): E87.6 - Hypokalemia Status: Acute Assessment and Plan: -repleted. Continue to monitor. -hypokalemia likely from GI loss -Zofran for nausea (4) Hypertension: Code(s): I10 - Essential (primary) hypertension Status: Acute Assessment and Plan: Borderline hypotensive initially but now blood pressure seems within acceptable range. Her amlodipine, losartan and hydrochlorothiazide has been put on hold. Resume if blood pressure start to trend up. (5) GERD (gastroesophageal reflux disease): Code(s): K21.9 - Gastro-esophageal reflux disease without esophagitis Status: Acute Assessment and Plan: I will start her on pantoprazole for her GERD like symptoms. She takes Zantac at her baseline. Additional Plan Diet: Regular DVT prophylaxis: Lovenox Code status: Full code Disposition: Can likely be discharged in 1-2 days based on her clinical condition. Subjective Date/time seen: 10/30/20 12:17 She is doing well. She remained on room air. She feels that her exertional dyspnea has improved compared to yesterday but still having symptoms with ambulating inside the room. Her cough has been improving as well. She had 1 episode of diarrhea today. Her symptom of aches and pains have improved as well. She was complaining of GERD like symptoms today and does take Zantac at home at her baseline. She denied have any chest pain or shortness of breath at rest. Review of Systems Review of Systems: All systems reviewed & are unremarkable except as noted in HPI and below Exam Narrative: - GENERAL: Pleasant female in no acute distress laying comfortably in bed. - LUNGS: Clear to auscultation bilaterally, no wheezing, rhonchi, or rales. - CARDIOVASCULAR: S1-S2 - ABDOMEN: Soft, non-tender and non-distended. - EXTREMITIES: No edema. - NEUROLOGIC: Alert oriented - PSYCHIATRIC: Awake, Alert and oriented x 3. Objective Data Vital Signs Vital Signs: Vital Signs - 24 hr 10/29/20 16:00 10/29/20 20:00 10/29/20 22:03 Temperature 36.7 C 36.1 C L Pulse Rate 94 104 H 102 H Respiratory Rate 20 18 Blood Pressure 103/67 127/72 Pulse Oximetry 99 100 10/30/20 00:00 10/30/20 00:20 10/30/20 04:00 Temperature 36.4 C Pulse Rate 91 96 76 Respiratory Rate 20 Blood Pressure 114/68 Pulse Oximetry 99 10/30/20 05:02 10/30/20 08:00 10/30/20 08:20 Temperature 36.3 C L 36.5 C Pulse Rate 90 75 88 Respiratory Rate 18 18 Blood Pressure 125/85 113/73 Pulse Oximetry 98 98 10/30/20 11:27 Temperature Pulse Rate Respiratory Rate Blood Pressure Pulse Oximetry 98 Intake/Output Intake/Output: Intake & Output 10/27/20 10/28/20 10/29/20 10/30/20 23:59 23:59 23:59 23:59 Intake Total 2600 5310 2920 600 Output Total 4200 8200 168
[2020-10-31] VITALS: BP 116/72; PULSE 76; RESP 20; TEMP 37.2; O2SAT 99
[2020-10-31 04:00] VITALS: BP 111/72; PULSE 78; RESP 20; TEMP 36.7; O2SAT 97
[2020-10-31 06:41] LABS: Basophils Percent Auto 0.3 % (0.2-1.2); Eosinophils Percent Auto 0.2 % (0-4.4); Hematocrit 31.7 % (37.0-47.0); Hemoglobin 10.6 g/dL (12.0-15.0); Immature Granulocyte Absolute 0.23 K/mm3 (0.00-0.031); Immature Granulocyte Percent A 1.7 % (0-0.5); Lymphocytes Absolute Auto 1.82 K/mm3 (0.9-3.2); Lymphocytes Percent Auto 13.8 % (18.3-44.2); Mean Corpuscular HGB Conc 33.4 g/dl (32-36); Mean Corpuscular Volume 86.8 fl (80-100); Monocytes Absolute Auto 0.8 K/mm3 (0.1-0.6); Monocytes Percent Auto 5.8 % (2.6-8.5); Neutrophils Absolute Auto 10.3 K/mm3 (1.3-6.7); Neutrophils Percent Auto 78.2 % (45.5-73.1); Platelet Count Result 335 k/mm3 (150-375); Red Blood Count 3.65 M/mm3 (4.2-5.4); Red Cell Distribution Width 13.4 % (11.5-14.5); White Blood Count 13.2 K/mm3 (4.5-10.0)
[2020-10-31 06:55] LABS: Anion Gap 9 mmol/L (8-16); Blood Urea Nitrogen 17 mg/dL (7-17); Calcium 8.5 mg/dL (8.4-10.2); Carbon Dioxide 20 mmol/L (22-30); Chloride 110 mmol/L (98-107); Estimated CRCL calculation 70 ml/min; Estimated Glomerular Filt Rate > 60; Glucose 100 mg/dL (65-110); Potassium 3.3 mmol/L (3.4-5.0); Sodium 139 mmol/L (137-145)
[2020-10-31 08:00] VITALS: BP 123/83; PULSE 70; PULSE 85; RESP 18; RESP 20; TEMP 36.3; O2SAT 100; O2SAT 97
[2020-10-31] MEDS: PANTOPRAZOLE 40 MG TABLET PO (08:27)
[2020-10-31] MEDS: ENOXAPARIN 30 MG/0.3 ML SYRINGE SUB-Q (08:27)
[2020-10-31] MEDS: GABAPENTIN 300 MG CAPSULE PO ×2 (08:27→16:19)
[2020-10-31 12:00] VITALS: BP 114/74; PULSE 74; PULSE 78; RESP 18; TEMP 36.4; O2SAT 98
--- NOTE | 2020-10-31 12:28 | PM.IMPN ---
Progress Note: A&P Assessment and Plan (1) BRYAN (acute kidney injury): Code(s): N17.9 - Acute kidney failure, unspecified Status: Acute (2) GERD (gastroesophageal reflux disease): Code(s): K21.9 - Gastro-esophageal reflux disease without esophagitis Status: Acute (3) Hypertension: Code(s): I10 - Essential (primary) hypertension Status: Acute (4) Pneumonia due to 2019 novel coronavirus: Code(s): U07.1 - COVID-19; J12.82 - Pneumonia due to coronavirus disease 2019 Status: Acute (5) Hypokalemia: Code(s): E87.6 - Hypokalemia Status: Acute Additional Plan (1) COVID-19 virus infection: Diagnosed 10/18/2020. She is not on oxygen but has been complaining of shortness of breath with minimal exertion like walking in the room. Her chest CT does show bilateral airspace disease which is patchy in nature likely secondary to COVID-19 pneumonia. Continue her on steroid with dexamethasone 6 mg IV once a day. She is out of window for remdisivir. CRP is 4.7. D-dimer is minimally elevated which is 0.64. Her symptoms are mainly GI symptoms with significant diarrhea, continue supportive care, replete electrolytes as needed. (2) BRYAN (acute kidney injury): -creatinine was 2.9 at the time of presentation likely secondary to diarrhea and hypotension, may have ATN, prerenal etiology - She was hydrated with IV fluids and her creatinine was back to within normal range. IV fluids has already been stopped (3) Acute hypokalemia: - Replace. Continue to monitor. -hypokalemia likely from GI loss -Zofran for nausea (4) Hypertension: Borderline hypotensive initially but now blood pressure seems within acceptable range. Her amlodipine, losartan and hydrochlorothiazide has been put on hold. Resume if blood pressure start to trend up. (5) GERD (gastroesophageal reflux disease): Continue pantoprazole for her GERD like symptoms. She takes Zantac at her baseline. Diet: Regular DVT prophylaxis: Lovenox Code status: Full code Disposition: Can likely be discharged in 1-2 days based on her clinical condition. Subjective Date/time seen: 10/31/20 12:28 She reports uneventful night and feeling better this morning. Hemodynamically stable. reports some shortness of breath when she lays on her left side. Exam Narrative: Gen: Alert, NAD Abd: Soft, NT, ND Heart: RRR Lungs: CTAB Ext: No lower extremity edema Objective Data Vital Signs Vital Signs: Vital Signs - 24 hr 10/30/20 16:00 10/30/20 16:15 10/30/20 20:00 Temperature 97.0 F L 97.7 F Pulse Rate 86 89 88 Respiratory Rate 16 20 Blood Pressure 111/71 139/78 Pulse Oximetry 95 100 10/31/20 00:00 10/31/20 04:00 10/31/20 08:00 Temperature 98.9 F 98.1 F 97.3 F L Pulse Rate 76 78 70 Respiratory Rate 20 20 18 Blood Pressure 116/72 111/72 123/83 Pulse Oximetry 99 97 100 Intake/Output Intake/Output: Intake & Output 10/28/20 10/29/20 10/30/20 10/31/20 23:59 23:59 23:59 23:59 Intake Total 5310 2920 1630 490 Output Total 4200 1900 850 Balance 1110 1020 780 490 Meds/Results Medications: Active Medications Generic Name Dose Route Start Last Admin Trade Name Freq PRN Reason Stop Dose Admin Acetaminophen 650 mg 10/29/20 03:54 10/29/20 04:37 Acetaminophen 325 Mg Tablet PO 650 mg Q6H PRN Administration Mild Pain (1-3) or Fever Amlodipine Besylate 2.5 mg 10/29/20 09:00 10/29/20 14:06 Amlodipine Besylate 2.5 Mg Tablet PO Not Given DAILY [facility] Calcium Carbonate 200 mg 10/30/20 05:27 10/30/20 05:55 Calcium Carbonate (Tums) 500 Mg (200 Mg Elemental) PO 200 mg Q6H PRN Administration Indigestion Dexamethasone Sodium Phosphate 6 mg 10/29/20 13:00 10/31/20 08:26 Dexamethasone Sod Phos Inj 10 Mg/Ml 1 Ml Vial IV PUSH 11/07/20 09:01 6 mg DAILY PHILIP Administration Enoxaparin Sodium 30 mg 10/28/20 09:00 10/31/20 08:27 Enoxaparin 30 Mg/0.3 Ml Syringe SUB-Q 30 mg DAILY PHILIP
[2020-10-31] MEDS: POTASSIUM CHLORIDE 20 MEQ TABLET PO ×2 (13:01→22:38)
[2020-10-31 16:00] VITALS: BP 116/76; PULSE 76; PULSE 84; RESP 18; TEMP 36; O2SAT 100
[2020-10-31 20:00] VITALS: BP 120/78; PULSE 67; PULSE 68; RESP 18; TEMP 37.1; O2SAT 99
[2020-11-01 00:25] VITALS: BP 115/71; PULSE 68; RESP 18; TEMP 36.2; O2SAT 99
[2020-11-01 04:54] VITALS: BP 112/72; PULSE 68; RESP 18; TEMP 36.6; O2SAT 98
[2020-11-01 07:21] LABS: Anion Gap 6 mmol/L (8-16); Blood Urea Nitrogen 15 mg/dL (7-17); Calcium 8.4 mg/dL (8.4-10.2); Carbon Dioxide 21 mmol/L (22-30); Chloride 111 mmol/L (98-107); Estimated CRCL calculation 78 ml/min; Estimated Glomerular Filt Rate > 60; Glucose 84 mg/dL (65-110); Potassium 3.2 mmol/L (3.4-5.0); Sodium 138 mmol/L (137-145)
--- NOTE | 2020-11-01 07:22 | PM.IMPN ---
Progress Note: A&P Assessment and Plan (1) BRYAN (acute kidney injury): Code(s): N17.9 - Acute kidney failure, unspecified Status: Acute Assessment and Plan: -creatinine was 2.9 at the time of presentation likely secondary to diarrhea and hypotension, may have ATN, prerenal etiology - She was hydrated with IV fluids and her creatinine was back to within normal range. IV fluids has already been stopped (2) GERD (gastroesophageal reflux disease): Code(s): K21.9 - Gastro-esophageal reflux disease without esophagitis Status: Acute Assessment and Plan: I will start her on pantoprazole for her GERD like symptoms. She takes Zantac at her baseline. (3) Hypertension: Code(s): I10 - Essential (primary) hypertension Status: Acute Assessment and Plan: Borderline hypotensive initially but now blood pressure seems within acceptable range. Her amlodipine, losartan and hydrochlorothiazide has been put on hold. Resume if blood pressure start to trend up. (4) Pneumonia due to 2019 novel coronavirus: Code(s): U07.1 - COVID-19; J12.82 - Pneumonia due to coronavirus disease 2019 Status: Acute (5) Hypokalemia: Code(s): E87.6 - Hypokalemia Status: Acute Additional Plan (1) COVID-19 virus infection: Diagnosed 10/18/2020. She is not on oxygen but has been complaining of shortness of breath with minimal exertion like walking in the room. Her chest CT does show bilateral airspace disease which is patchy in nature likely secondary to COVID-19 pneumonia. Continue her on steroid with dexamethasone 6 mg IV once a day. She is out of window for remdisivir. CRP is 4.7. D-dimer is minimally elevated which is 0.64. Her symptoms are mainly GI symptoms with significant diarrhea, continue supportive care, replete electrolytes as needed. (2) BRYAN (acute kidney injury): -creatinine was 2.9 at the time of presentation likely secondary to diarrhea and hypotension, may have ATN, prerenal etiology - She was hydrated with IV fluids and her creatinine was back to within normal range. IV fluids has already been stopped (3) Acute hypokalemia: - Replace. Continue to monitor. -hypokalemia likely from GI loss -Zofran for nausea (4) Hypertension: Borderline hypotensive initially but now blood pressure seems within acceptable range. Her amlodipine, losartan and hydrochlorothiazide has been put on hold. Resume if blood pressure start to trend up. (5) GERD (gastroesophageal reflux disease): Continue pantoprazole for her GERD like symptoms. She takes Zantac at her baseline. Diet: Regular DVT prophylaxis: Lovenox Code status: Full code Disposition: Can likely be discharged in 1-2 days based on her clinical condition. Subjective Date/time seen: 11/01/20 07:22 Review of Systems Review of Systems: All systems reviewed & are unremarkable except as noted in HPI and below Exam Narrative: Gen: Alert, NAD Abd: Soft, NT, ND Heart: RRR Lungs: CTAB Ext: No lower extremity edema Objective Data Vital Signs Vital Signs: Vital Signs - 24 hr 10/31/20 08:00 10/31/20 12:00 10/31/20 16:00 Temperature 36.3 C L 36.4 C 36.0 C L Pulse Rate 70 78 84 Respiratory Rate 18 18 18 Blood Pressure 123/83 114/74 116/76 Pulse Oximetry 100 98 100 10/31/20 20:00 11/01/20 00:25 11/01/20 04:54 Temperature 37.1 C 36.2 C L 36.6 C Pulse Rate 68 68 68 Respiratory Rate 18 18 18 Blood Pressure 120/78 115/71 112/72 Pulse Oximetry 99 99 98 Intake/Output Intake/Output: Intake & Output 10/29/20 10/30/20 10/31/20 11/01/20 23:59 23:59 23:59 23:59 Intake Total 2920 1630 2270 450 Output Total 1900 850 Balance 6558 913 0918 450 Meds/Results Medications: Active Medications Generic Name Dose Route Start Last Admin Trade Name Freq PRN Reason Stop Dose Admin Acetaminophen 650 mg 10/29/20 03:54 10/29/20 04:37 Acetaminophen 325 Mg Tablet PO 650 mg Q6H PRN Administration Mild
[2020-11-01] MEDS: PANTOPRAZOLE 40 MG TABLET PO (08:19)
[2020-11-01] MEDS: GABAPENTIN 300 MG CAPSULE PO (08:19)
[2020-11-01] MEDS: ENOXAPARIN 30 MG/0.3 ML SYRINGE SUB-Q (08:19)
[2020-11-01 10:30] VITALS: BP 122/87; PULSE 79; RESP 20; TEMP 36.4; O2SAT 99
--- NOTE | 2020-11-01 12:40 | PM.DS ---
DS: Admitting Diagnosis Admitting Diagnosis Acute kidney injury Hypertension Hypokalemia COVID-19 infection with pneumonia DS: Discharge Diagnosis Discharge Diagnosis (1) BRYAN (acute kidney injury): Code(s): N17.9 - Acute kidney failure, unspecified Status: Acute Assessment and Plan: -creatinine was 2.9 at the time of presentation likely secondary to diarrhea and hypotension, may have ATN, prerenal etiology - She was hydrated with IV fluids and her creatinine was back to within normal range. IV fluids has already been stopped (2) GERD (gastroesophageal reflux disease): Code(s): K21.9 - Gastro-esophageal reflux disease without esophagitis Status: Acute Assessment and Plan: She was on pantoprazole here in the hospital with good symptomatic improvement. She takes Zantac at her baseline. (3) Hypertension: Code(s): I10 - Essential (primary) hypertension Status: Acute Assessment and Plan: Borderline hypotensive initially but now blood pressure seems within acceptable range. Her amlodipine, losartan and hydrochlorothiazide has been put on hold. I will resume her amlodipine 2.5 mg at the time of discharge. She will continue to hold losartan and hydrochlorothiazide. She was encouraged to see her primary care physician in 1 week time for blood pressure check and further titration of her medication. Her blood pressures remain within acceptable range while she was off all her antihypertensive medications. (4) Pneumonia due to 2019 novel coronavirus: Code(s): U07.1 - COVID-19; J12.82 - Pneumonia due to coronavirus disease 2019 Status: Acute Assessment and Plan: Diagnosed 10/18/2020. She is not on oxygen but has been complaining of shortness of breath with minimal exertion like walking in the room. Her chest CT does show bilateral airspace disease which is patchy in nature likely secondary to COVID-19 pneumonia. She was on dexamethasone for almost 3 days here and will be discharged on 2 days of prednisone. She is out of window for remdisivir. CRP is 4.7. D-dimer is minimally elevated which is 0.64. Her symptoms are mainly GI symptoms with significant diarrhea, continue supportive care, replete electrolytes as needed. (5) Hypokalemia: Code(s): E87.6 - Hypokalemia Status: Acute Assessment and Plan: -repleted. Continue to monitor. -hypokalemia likely from GI loss -Zofran for nausea DS: Summary Hospital Course Hospital Course: As above Time Spent with Patient Time attestation: Total time spent providing and/or coordinating discharge services: >35 minutes Exam Narrative: - GENERAL: Pleasant female in no acute distress laying comfortably in bed. - LUNGS: Clear to auscultation bilaterally, no wheezing, rhonchi, or rales. - CARDIOVASCULAR: S1-S2 - ABDOMEN: Soft, non-tender and non-distended. - EXTREMITIES: No edema. - NEUROLOGIC: Alert oriented - PSYCHIATRIC: Awake, Alert and oriented x 3. DS: Data Data Completed and Pending Labs on day of discharge: Labs from last 24 hours 11/01/20 06:30 Sodium 138 Potassium 3.2 L Chloride 111 H Carbon Dioxide 21 L Anion Gap 6 L BUN 15 Creatinine 0.80 Estim Creat Clear Calc 78 Estimated GFR > 60 Glucose 84 Calcium 8.4 Discharge Plan Discharge Attending physician on discharge: Heather Valladares Consulting providers: Nancy López Discharging Clinician: Heather Valladares Anticipated Discharge Date/Time: 11/01/20 11:20 Patient Disposition: Home, Self-Care Activity: as tolerated Diet: heart healthy Patient Instructions: Antibiotic Form, Hypokalemia (DC), COVID-19 (Coronavirus Disease 2019) (DC), COVID-19 and Chronic Health Conditions (DC) Stand Alone Forms: General Discharge Information Follow-up/Referrals: Joey,BREANN Murphy [Primary Care Provider] - 2 Weeks Discharge Medications: New prednisone 20 mg tablet 40 mg PO DAILY Qty:
== END 2020-11-01 15:14 | disposition home or self-care (01) | DRG 177 ==
LOC: ANHED 15:25 → ANH3MEDSUR 16:07
PROVIDERS: Internal Medicine Nephrology; Nurse Practitioner; Student in an Organized Health Care Education/Training Program; Admitting Provider Internal Medicine; Emergency Provider Emergency Medicine; PCP Nurse Practitioner Family; Visit Provider Internal Medicine Critical Care Medicine
DX: U07.1 COVID-19 (principal); J12.82 Pneumonia due to coronavirus disease 2019; N17.9 Acute kidney failure, unspecified; E87.6 Hypokalemia; I10 Essential (primary) hypertension; K21.9 Gastro-esophageal reflux disease without esophagitis; E66.9 Obesity, unspecified; Z68.30 Body mass index [BMI] 30.0-30.9, adult; Z79.899 Other long term (current) drug therapy
CPT/HCPCS: 36415; 36600; 71045; 71046; 71250; 74176; 80048; 80076; 81003; 82805; 83735; 84100; 85025; 85380; 86140; 93005; 96365; 96366; 99285; A9270; J0131; J1100; J1650; J3480; J7030

== ENCOUNTER 2020-12-09 09:34 | Outpatient (CLI) | payer BC, SELFPAY ==
--- NOTE | ~2020-12-09 | US_ITS ---
EXAMINATION: US venous doppler [facility] DATE: 12/09/2020 10:12 INDICATION: Bilateral lower limb pain TECHNIQUE: Grayscale ultrasound images without and with compression and Doppler ultrasound images of the bilateral lower extremity veins were obtained. COMPARISON: None. FINDINGS: The visualized portions of right common femoral vein, profunda (deep) femoral vein, femoral vein, pop liteal vein, posterior tibial veins, peroneal veins, gastrocnemius vein and greater saphenous vein ou tflow are patent. The visualized portions of left common femoral vein, profunda femoral vein, femoral vein, popliteal v ein, posterior tibial veins, peroneal veins, gastrocnemius vein and greater saphenous vein outflow ar e patent. IMPRESSION: 1. No deep venous thrombosis in either lower limb. Reviewed, dictated and finalized at location A.
== END 2020-12-09 09:35 | disposition home or self-care (01) ==
LOC: ANHIMG 09:37
PROVIDERS: PCP Nurse Practitioner Family; Visit Provider Nurse Practitioner Family
DX: M79.661 Pain in right lower leg (principal)
CPT/HCPCS: 93970

== ENCOUNTER → 2021-02-12 09:44 | Outpatient (CLI) | payer BC, SELFPAY ==
--- NOTE | ~2021-02-12 | MR_ITS ---
EXAMINATION: MR shoulder LT wo con DATE: 02/12/2021 10:12 INDICATION: Calcific tendinitis of the left shoulder. TECHNIQUE: Magnetic resonance imaging (MRI) of the left shoulder was performed without intravenous co ntrast. Sequences included axial PD-weighted FS FSE, coronal oblique PD-weighted FS FSE, coronal obli que T2-weighted FS FSE, sagittal PD-weighted FS FSE, and sagittal T1-weighted SE. COMPARISON: None. FINDINGS: Coracoacromial arch: The acromion undersurface is curved in morphology (type II) but with contour and thickness suggesting this represents sequela of prior acromioplasty. The coracoacromial ligament is normal. Mild acromioc lavicular osteoarthritis. Rotator cuff: Mild tendinopathy without discrete tear at the conjoined portion of the supraspinatus and infraspinat us tendons. The teres minor and subscapular tendons are normal. Normal rotator cuff muscle bulk and s ignal. Biceps tendon, glenoid labrum and glenohumeral cartilage: Long head of the biceps tendon is normal. Glenoid labrum is normal. Glenohumeral cartilage is normal. Fluid: Physiologic amount of fluid in the glenohumeral joint and biceps tendon sheath. No loose osteochondra l bodies. No abnormal fluid signal in the subacromial/subdeltoid bursa to suggest bursitis. Bones: Nonspecific small focus of mild marrow edema medial to the middle facet footplate of the conjoined po rtion of the supraspinatus and infraspinatus tendons. Otherwise normal marrow signal. No fracture or pathologic marrow replacing process. IMPRESSION: 1. Mild tendinopathy without tear of the conjoined portion of the supraspinatus and infraspinatus sreedhar laurent. Reviewed, dictated and finalized at location A. ICIAN INTENSIVIST IMPRESSION: 1. Mild tendinopathy without tear of the conjoined portion of the supraspinatus and infraspinatus tendons.
== END ==
PROVIDERS: PCP Nurse Practitioner Family; Visit Provider Orthopaedic Surgery
DX: M75.32 Calcific tendinitis of left shoulder (principal)
CPT/HCPCS: 73221

== ENCOUNTER 2021-02-21 09:45 | Outpatient (CLI) | payer BC, SELFPAY ==
--- NOTE | 2021-02-21 13:38 | NEURO_ITS ---
PATIENT NUMBER: [id number] IMPRESSION: # Complains of numbness and pain. # No Carpal Tunnel Syndrome. # No ulnar neuropathy. # Normal F-waves. # Normal needl exam. # Clinical correlation is recommended Nerve Conduction Studies Anti Sensory Summary Table Stim Site NR Peak (ms) P-T Amp (?V) Site1 Site2 Delta-P (ms) Dist (cm) Eliezer (m/s) Left Median Anti Sensory (2-3nd Digit) Wrist 2.7 81.4 Wrist 2-3nd Digit 2.7 14.0 52 Wrist 2.6 106.2 Wrist 2-3nd Digit 2.7 14.0 52 Right Median Anti Sensory (2-3nd Digit) Wrist 2.7 66.6 Wrist 2-3nd Digit 2.7 14.0 52 Wrist 2.6 111.2 Wrist 2-3nd Digit 2.7 14.0 52 Left Radial Anti Sensory (Base 1st Digit) Wrist 2.2 28.8 Wrist Base 1st Digit 2.2 0.0 Right Radial Anti Sensory (Base 1st Digit) Wrist 1.7 45.5 Wrist Base 1st Digit 1.7 0.0 Left Ulnar Anti Sensory (5th Digit) Right Ulnar Anti Sensory (5th Digit) Wrist 2.2 93.9 Wrist 5th Digit 2.2 14.0 64 Motor Summary Table Stim Site NR Onset (ms) O-P Amp (mV) Site1 Site2 Delta-0 (ms) Dist (cm) Eliezer (m/s) Left Median Motor (Abd Poll Brev) Wrist 3.4 2.3 Elbow Wrist 4.6 28.0 61 Elbow 8.0 3.0 Right Median Motor (Abd Poll Brev) Wrist 3.3 3.3 Elbow Wrist 4.6 27.0 59 Elbow 7.9 1.8 Left Ulnar Motor (Abd Dig Minimi) Wrist 3.0 8.0 A Elbow Wrist 4.9 30.0 61 A Elbow 7.9 5.0 Right Ulnar Motor (Abd Dig Minimi) Wrist 2.5 4.8 A Elbow Wrist 4.7 28.0 60 A Elbow 7.2 2.7 F Wave Studies NR F-Lat (ms) L-R F-Lat (ms) Left Median (Mrkrs) (Abd Poll Brev) 27.17 0.73 Right Median (Mrkrs) (Abd Poll Brev) 27.90 0.73 Left Ulnar (Mrkrs) (Abd Dig Min) 26.95 1.25 Right Ulnar (Mrkrs) (Abd Dig Min) 25.70 1.25 EMG Side Muscle Nerve Root Ins Act Fibs Amp Dur Recrt Comment Right 1stDorInt Ulnar C8-T1 Nml Nml Nml Nml Nml Right Ext Indicis Radial (Post Int) C7-8 Nml Nml Nml Nml Nml Right Ext Digitorum Radial (Post Int) C7-8 Nml Nml Nml Nml Nml Right BrachioRad Radial C5-6 Nml Nml Nml Nml Nml Right PronatorTeres Median C6-7 Nml Nml Nml Nml Nml Right Abd Poll Brev Median C8-T1 Nml Nml Nml Nml Nml Left 1stDorInt Ulnar C8-T1 Nml Nml Nml Nml Nml Left Ext Indicis Radial (Post Int) C7-8 Nml Nml Nml Nml Nml Left Ext Digitorum Radial (Post Int) C7-8 Nml Nml Nml Nml Nml Left BrachioRad Radial C5-6 Nml Nml Nml Nml Nml Left PronatorTeres Median C6-7 Nml Nml Nml Nml Nml Left Abd Poll Brev Median C8-T1 Nml Nml Nml Nml Nml Right ABD Dig Min Ulnar C8-T1 Nml Nml Nml Nml Nml Left ABD Dig Min Ulnar C8-T1 Nml Nml Nml Nml Nml Left Abd Poll Long Radial (Post Int) C7-8 Nml Nml Nml Nml Nml Right Abd Poll Long Radial (Post Int) C7-8 Nml Nml Nml Nml Nml MTDD
== END 2021-02-21 09:46 | disposition home or self-care (01) ==
LOC: ANHNEURO 09:48
PROVIDERS: PCP Nurse Practitioner Family; Visit Provider Nurse Practitioner Family
DX: R20.2 Paresthesia of skin (principal)
CPT/HCPCS: 95886; 95911

== ENCOUNTER 2021-03-28 19:31 | Emergency (ER) | payer BC, SELFPAY ==
[2021-03-28 19:42] VITALS: BP 140/82; PULSE 95; RESP 17; TEMP 36.4; O2SAT 100
--- NOTE | 2021-03-28 19:45 | ECG_ITS ---
Measurements Intervals Healy Rate: 85 P: 24 DE: 123 QRS: 52 QRSD: 88 T: 60 QT: 373 QTc: 445 Interpretive Statements SINUS RHYTHM BORDERLINE ST-T WAVE ABNORMALITY- ANTEROLAT/INF LEADS BASELINE WANDER- V4-V6 BORDERLINE ECG Electronically Signed On 03-28-2021 20:31:11 SHIRT SEWER by Weston Carcamo D.O.
--- NOTE | 2021-03-28 22:01 | ED.GENADULT ---
HPI - General Adult General Chief complaint: Recheck/Abnormal Lab/Rx Stated complaint: low k+ level Time Seen by Provider: 03/28/21 21:14 History of Present Illness HPI narrative: Patient 45-year-old female presents the emergency department with chief complaint of low potassium. The patient reports has had problems with her potassium levels in the past and had blood drawn by her primary care physician the patient states that she was called by her primary and told that her potassium levels were low and that she should go to the emergency department. Patient reports she feels weak and rundown denies chest pain denies shortness of breath denies vomiting denies diarrhea patient reports he is not on any diuretic. Related Data Home Medications Medication Instructions Recorded Confirmed amlodipine 2.5 mg tablet 2.5 mg PO DAILY 11/07/19 02/20/21 hydrochlorothiazide 25 mg tablet 25 mg PO DAILY 11/07/19 02/20/21 losartan 50 mg tablet 50 mg PO DAILY 11/07/19 02/20/21 gabapentin 300 mg PO BID 11/29/19 02/20/21 Allergies Allergy/AdvReac Type Severity Reaction Status Date / Time latex Allergy Rash Verified 03/28/21 19:44 Review of Systems Review of Systems: My review of system FOR[facility]LY [facility], [facility] Past Medical History Medical History Calcific tendinitis of left shoulder Goiter HSV (herpes simplex virus) infection Type 1 Hypertension Obesity (BMI 30.0-34.9) Vaginal delivery x2 Surgical History Surgical History History of repair of left rotator cuff (11/2019) History of umbilical hernia repair As a small child Family History Family History Mother Arthritis Hypertension Diabetes mellitus Cerebrovascular accident Father , at age 64 Colon cancer Social History Social History Social History: 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 She has 2 adult sons 1 of which live with her. She is a lifelong nonsmoker, she does not drink alcohol or use illicit substances. Smoking status: Never smoker Alcohol intake: never Substance use: never Spiritual care concerns: No Exam Narrative: GENERAL: Well-appearing, well-nourished, and in no acute distress. HEAD: Normocephalic, atraumatic. EYES: PERRLA and EOMI. ENT: Nares clear, no rhinorrhea or epistaxis. Mucous membranes moist. NECK: Supple. CHEST: Clear to auscultation. No respiratory distress. HEART: Regular rate and rhythm. No murmur heard. Normal peripheral pulses. ABDOMEN: Soft, nontender, nondistended, normal active bowel sounds. EXTREMITIES: Normal range of motion. No edema. SKIN: Warm, dry, no rash. NEURO: No focal deficits. Alert and oriented x3. PSYCH: Normal mood and affect. Course Course Emergency Course: EKG is sinus rhythm rate of [address] elevation or ST depression Vital Signs Vital signs: Vital Signs Temperature 36.4 C 03/28/21 19:42 Pulse Rate 95 03/28/21 19:42 Respiratory Rate 17 03/28/21 19:42 Blood Pressure 140/82 03/28/21 19:42 Pulse Oximetry 100 03/28/21 19:42 Temperature 36.4 C 03/28/21 19:42 Pulse Rate 84 03/29/21 01:01 Respiratory Rate 16 03/29/21 01:01 Blood Pressure 125/75 03/29/21 01:01 Pulse Oximetry 100 03/29/21 01:01 Medical Decision Making Vital Signs Vital Signs: Vital Signs Temperature 36.4 C 03/28/21 19:42 Pulse Rate 95 03/28/21 19:42 Respiratory Rate 17 03/28/21 19:42 Blood Pressure 140/82 03/28/21 19:42 Pulse Oximetry 100 03/28/21 19:42 Temperature 36.4 C 03/28/21 19:42 Pulse Rate 84 03/29/21 01:01 Respiratory Rate 16 03/29/21 01:01 Blood Pressure 125/75 03/29/21 01:01 Pulse Oximetry 100 03/29/21 01:01 Lab Data Result diagrams: 03/28/21 22:26 01
[2021-03-28 22:31] VITALS: BP 110/73; PULSE 79; RESP 13; O2SAT 100
[2021-03-28 22:32] LABS: Basophils Absolute Auto 0.1 K/mm3 (0.0-0.1); Basophils Percent Auto 0.7 % (0.2-1.2); Eosinophils Absolute Auto 0.6 K/mm3 (0-0.3); Eosinophils Percent Auto 6.7 % (0-4.4); Hematocrit 40.1 % (37.0-47.0); Hemoglobin 13.4 g/dL (12.0-15.0); Immature Granulocyte Absolute 0.02 K/mm3 (0.00-0.031); Immature Granulocyte Percent A 0.2 % (0-0.5); Lymphocytes Absolute Auto 2.88 K/mm3 (0.9-3.2); Lymphocytes Percent Auto 33.8 % (18.3-44.2); Mean Corpuscular HGB Conc 33.4 g/dl (32-36); Mean Corpuscular Hemoglobin 28.5 pg (26-34); Mean Corpuscular Volume 85.1 fl (80-100); Mean Platelet Volume 9.9 fl (7.4-10.4); Monocytes Absolute Auto 0.8 K/mm3 (0.1-0.6); Monocytes Percent Auto 9.1 % (2.6-8.5); Neutrophils Absolute Auto 4.2 K/mm3 (1.3-6.7); Neutrophils Percent Auto 49.5 % (45.5-73.1); Platelet Count Result 353 k/mm3 (150-375); Red Blood Count 4.71 M/mm3 (4.2-5.4); Red Cell Distribution Width 14.6 % (11.5-14.5); White Blood Count 8.5 K/mm3 (4.5-10.0)
[2021-03-28 23:01] VITALS: BP 113/75; PULSE 74; RESP 14; O2SAT 100
[2021-03-28 23:22] LABS: Alanine Aminotransferase 46 U/L (4-35); Albumin Level 4.6 g/dL (3.5-5.1); Alkaline Phosphatase 86 U/L (38-126); Anion Gap 10 mmol/L (8-16); Aspartate Amino Transferase 32 U/L (14-36); Bilirubin,Total 0.6 mg/dL (0.2-1.3); Blood Urea Nitrogen 19 mg/dL (7-17); Calcium 9.4 mg/dL (8.4-10.2); Carbon Dioxide 26 mmol/L (22-30); Chloride 104 mmol/L (98-107); Estimated CRCL calculation 69 ml/min; Estimated Glomerular Filt Rate > 60; Glucose 103 mg/dL (65-110); Magnesium 2.5 mg/dL (1.6-2.3); Potassium 2.8 mmol/L (3.4-5.0); Sodium 140 mmol/L (137-145)
[2021-03-28] MEDS: SODIUM CHLORIDE 0.9% IV 1,000 ML 999 ML IV CONT (23:29)
[2021-03-28 23:46] LABS: Add Urine Microscopic? YES; Appearance Urine Cloudy (Clear); Bacteria Urine Trace /hpf; Bilirubin Urine Negative (Negative); Color Urine Yellow (Yellow); Glucose Urine UA Negative (Negative); Ketones Urine Negative (Negative); Leukocyte Esterase Ur 3+ LEU/UL (Negative); Mucus Urine Few /lpf; Nitrate Urine Negative (Negative); Protein Urine Negative (Negative); Specific Grav Ur 1.026 (1.001-1.035); Squamous Epithelial Cell Urine Many /hpf (Few); WBC Urine 31-50 /hpf
[2021-03-28 23:48] LABS: Blood Urine Negative (Negative)
[2021-03-29] VITALS (8 sets, daily range): BP systolic 111–126; BP diastolic 73–89; PULSE 80–90; RESP 14–22; O2SAT 98–100
[2021-03-29] MEDS: POTASSIUM CHLORIDE 20 MEQ PACKET (FOR LIQUID) 40 MEQ PO (00:05)
[2021-03-29] MEDS: POTASSIUM CHLORIDE INJ 40 MEQ in SODIUM CHLORIDE 0.9% IV 500 ML 130 MEQ IVPB (00:06)
== END 2021-03-29 04:15 | disposition home or self-care (01) ==
PROVIDERS: Emergency Provider Emergency Medicine; PCP Nurse Practitioner Family
DX: E87.6 Hypokalemia (principal); N30.00 Acute cystitis without hematuria; I10 Essential (primary) hypertension; E66.9 Obesity, unspecified; Z68.34 Body mass index [BMI] 34.0-34.9, adult
CPT/HCPCS: 36415; 80053; 81001; 83735; 85025; 87086; 87088; 93005; 96361; 96365; 96366; 99284; A9270; J3480; J7030; J7040

== ENCOUNTER 2021-05-15 15:08 | Outpatient (CLI) | payer BC, SELFPAY ==
[2021-05-15 17:51] LABS: Potassium 2.7 mmol/L (3.4-5.0)
== END 2021-05-15 15:09 | disposition home or self-care (01) ==
LOC: ANHSURGERY 15:11
PROVIDERS: Anesthesiology; PCP Nurse Practitioner Family; Visit Provider Orthopaedic Surgery
DX: E87.6 Hypokalemia (principal); Z01.818 Encounter for other preprocedural examination
CPT/HCPCS: 36415; 84132

== ENCOUNTER 2021-08-19 10:07 | Outpatient (CLI) | payer BC, SELFPAY ==
[2021-08-19 10:47] LABS: Anion Gap 9 mmol/L (8-16); Blood Urea Nitrogen 18 mg/dL (7-17); Calcium 9.3 mg/dL (8.4-10.2); Carbon Dioxide 21 mmol/L (22-30); Chloride 115 mmol/L (98-107); Estimated Glomerular Filt Rate > 60; Glucose 129 mg/dL (65-110); Potassium 3.8 mmol/L (3.4-5.0); Sodium 145 mmol/L (137-145)
== END 2021-08-19 10:08 | disposition home or self-care (01) ==
PROVIDERS: Anesthesiology; PCP Nurse Practitioner Family; Visit Provider Orthopaedic Surgery
DX: Z01.818 Encounter for other preprocedural examination (principal); Z79.899 Other long term (current) drug therapy
CPT/HCPCS: 36415; 80048

== ENCOUNTER 2021-08-23 00:32 | Day surgery (SDC) | payer BC, SELFPAY ==
[2021-08-16 15:18] VITALS: BMI 35.6
--- NOTE | 2021-08-16 15:29 | PC.NURSE ---
Report to the Outpatient Waiting Room, entrance under the green pavilion located off [facility], at time 10:00 on date 08/23/21. OR Time: 12:00. - You and your visitor will be asked a series of questions to screen for COVID 19 for your protection. - Only one visitor is allowed at this time. - The patient visitor is requested to leave or wait in car when not with patient. - A mask is required within the hospital. Patients may have clear liquids (water, carbonated beverages, clear teas, apple juice) until 3 hours prior to surgery (9:00) with a maximum of 20 ounces. - No food from midnight until time of surgery Take the following medications with a SIP of water the morning of surgery: AMLODIPINE, GABAPENTIN Medications to discontinue per physician: VITAMINS/SUPPLEMENTS Date to take last dose: 08/19/21 Please no make-up, nail cymro, hairspray, perfume, deodorant, or body powder the day of surgery. No jewelry (including any body piercings) or valuables the day of surgery, leave them at home. Please take a shower or bath the night before, or the morning of, surgery with an antibacterial soap. Wear comfortable, loose fitting clothing. - Jewelry must be removed prior to entering the operating room. Rings and piercings that are not removed may be cut off. - The hospital will not accept responsibility for valuables. - Please leave all valuables, including medications, at home the day of surgery. If you are going home after surgery, a licensed driver messenger must drive you home. - NO public transportation without another adult. - We recommend that an adult stay with you for 24 hours following discharge. - We also recommend that you do not drive, make important decision, drink alcoholic beverages, or take any drugs that were not prescribed by your health care provider for at least 24 hours after your discharge time. Follow any additional instructions given to you from your surgeon. If you or anyone in your household have experienced Covid symptoms in the past week, please notify your surgeon or the nurse liaison at the phone number below for possible testing. Telephone instructions given to PT - MELISSA DOMINGO and asked if any additional questions and then verbalized understanding. Patient advised to call surgeon office or pre surgery nurse liaison [phone] if any additional questions.
--- NOTE | 2021-08-22 12:08 | WPDANESEPPF ---
Anes - Initial Pre Proc Eval Procedure: Operation Date: 08/23/21 10:30 Proposed Procedures p Arthroscopic Subacromial Decompression with Biceps Tenodesis and Distal Clavicle Excision Left Shoulder, Possible Rotator Cuff Repair - Roque Danielson MD Date/Time: 08/22/21 12:08 Surgeon: Roque Danielson MD Pre Op Diagnosis: Lt Rot Cuff Tendonitis Patient Data Age: 46 Gender: F Height: 1.55 m Weight: 85.5 kg Allergies Allergy/AdvReac Type Severity Reaction Status Date / Time latex Allergy Rash Verified 08/16/21 15:17 Home Medications Medication Instructions Recorded Confirmed Type amlodipine 2.5 mg tablet 2.5 mg PO DAILY 11/07/19 08/16/21 History hydrochlorothiazide 25 mg tablet 25 mg PO DAILY 11/07/19 08/16/21 History losartan 50 mg tablet 50 mg PO DAILY 11/07/19 08/16/21 History gabapentin 300 mg capsule 300 mg PO TID 11/29/19 08/16/21 History metronidazole 0.75 % vaginal gel 1 appful vaginal BID 5 days #70 07/20/20 08/16/21 Rx (Metrogel Vaginal) grams potassium chloride 20 mEq 20 meq PO BID 5 days #10 tabs 03/28/21 08/16/21 Rx tablet,extended release acetazolamide 500 mg 500 mg PO DAILY 05/13/21 08/16/21 History capsule,extended release pantoprazole 40 mg tablet,delayed 40 mg PO DAILY 05/13/21 08/16/21 History release medroxyprogesterone 150 mg/mL 150 mg IM [id number] #1 mL 08/01/21 08/16/21 Rx intramuscular syringe Patient hx anesthesia problems: none Family hx anesthesia problems: none Results Review: All pre-operative results and documents have been reviewed as part of the pre-operative evaluation. [facility] Past Medical History Medical History (Updated 08/22/21 @ 12:08 by Wilber Duran MD) Calcific tendinitis of left shoulder GERD (gastroesophageal reflux disease) Goiter HSV (herpes simplex virus) infection Type 1 Hypertension Obesity (BMI 30.0-34.9) Vaginal delivery x2 Surgical History Surgical History (Updated 08/15/21 @ 16:47 by Roque Danielson MD) History of repair of left rotator cuff (11/2019) History of umbilical hernia repair As a small child Family History Family History Mother Arthritis Hypertension Diabetes mellitus Cerebrovascular accident Father , at age 64 Colon cancer Social History Social History Social History: 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 She has 2 adult sons 1 of which live with her. She is a lifelong nonsmoker, she does not drink alcohol or use illicit substances. Smoking status: Never smoker Alcohol intake: current Alcohol use details: FEW TIMES/YEAR Substance use: never Substance use type: does not use Living arrangements: with family Spiritual care concerns: No Anes - Eval Final PreProcedure Day of Procedure 08/22/21 12:08 Patient weight: obese Heart: regular rate and rhythm Lungs: clear to auscultation Airway: Mallampati scale class II Neurological: alert and oriented Last oral intake: >/= 8 hours ASA classification: III Emergent: no Anesthetic plan: proceed Anesthesia type and monitoring: general ETT and standard monitoring Results Review: All pre-operative results and documents have been reviewed as part of the pre-operative evaluation. Informed Consent: The patient's anesthetic plan and its attendant risks and benefits were discussed with the patient/family/POA. Questions were solicited and answers provided to the satisfaction of the patient/family/POA.
--- NOTE | 2021-08-22 12:09 | WPDANESPNB ---
Anes - Peripheral Nerve Block Date/Time: 08/22/21 12:09 I have discussed with the patient/family/POA the placement of a peripheral nerve block for post-operative pain management, including associated risks, benefits, complications, and side effects. Alternative methods of post-operative analgesia were detailed. Questions were solicited and answers provided to the satisfaction of the patient/family/POA. Time-Out: A pre-procedural Time-Out was completed immediately before starting the procedure and confirmed: Patient Identification, Site, Procedure, Patient Position and the Availability of Requisite Equipment. Clinical Indications: Acute post-operative pain management requested by the operative surgeon. Nerve Block Insertion Note Anes-nerve block: supraclavicular Patient position: supine Skin prep: chlorhexidine Needle: 22 gauge, stimulating, insulated echogenic needle. Needle length: 80 mm Technique: ultrasound (in plane) Injectate: bupivacaine 0.5% with epi 5 mcg/ml (20cc) Observations: tolerated well Complications: none Procedure start time:: 1020 Procedure end time:: 1025
[2021-08-23] VITALS (10 sets, daily range): BP systolic 132–154; BP diastolic 90–104; PULSE 66–90; RESP 10–20; TEMP 36.1–36.7; O2SAT 95–100
[2021-08-23] MEDS: LACTATED RINGERS 1,000 ML 30 ML IV CONT ×2 (09:05→12:38)
[2021-08-23] MEDS: ACETAMINOPHEN 500 MG TABLET 1000 MG PO (09:07)
[2021-08-23] MEDS: KETOROLAC 15 MG/ML VIAL (*BKC) IV PUSH (09:08)
--- NOTE | 2021-08-23 10:15 | WPDHPUPDATE1 ---
History and Physical Update Update Date/Time: 08/23/21 10:15 History and Physical has been reviewed, including an updated exam of the patient. There are NO changes in the patient's condition. Risks, benefits, and alternatives have been discussed and questions answered. Patient agrees to proceed with procedure.
[2021-08-23] MEDS: ceFAZolin 2 GM/D5W 50 ML 2 GM/50 ML BAG IVPB (10:30)
[2021-08-23] MEDS: fentaNYL CITRATE INJ (*CRX) 100 MCG/2 ML VIAL 25 MCG IV PUSH ×4 (13:22→13:44)
[2021-08-23] MEDS: oxyCODONE HCL (*CRX) 5 MG TAB IR PO (14:20)
[2021-08-23] MEDS: ONDANSETRON INJ 4 MG/2 ML VIAL IV PUSH (14:47)
--- NOTE | 2021-08-23 14:56 | W.PM.PROC2 ---
Procedure Note - Detailed Date of Procedure 08/23/21 Pre-op Diagnosis Lt Rot Cuff Tendonitis Post-op Diagnosis Other (1. Left rotator cuff tendinitis status post partial-thickness rotator cuff repair for calcific tendinitis 2. Biceps tendinitis 3. AC joint arthrosis ) Procedure Performed Left shoulder: Arthroscopic rotator cuff repair with Regeneten implant 2. Arthroscopic biceps tenodesis 3. Arthroscopic subacromial decompression 4. Arthroscopic distal clavicle excision Surgeon Roque Danielson MD Power System Dispatcher Arlette Mondragon PA-C Anesthesia General and Regional ( interscalene block) Indications The patient complained of severe persistent pain despite ongoing therapy status post rotator cuff repair for a large calcium deposit. She had initial postoperative stiffness which resolved modestly. A diuj-vs-syih suture repair was performed of the mid grade partial-thickness bursal side tear. Findings Bursal side of the cuff was frayed. One of the sutures was loose and the other was intact. The articular cuff was normal. Biceps showed mild tendinopathy. Tenodesis was performed arthroscopically with the loop and tack technique and a SwiveLock suture anchor. Remaining glenohumeral joint was benign. There was significant hyperemia of the cuff tissue. The bursa was quite thickened and was excised. The Regeneten implant fit very nicely over the problematic cuff tissue. This corresponded with the findings on the MRI. Six LAUREN anchors were used medially and 2 peek bone anchors laterally. Care was taken to avoid the biceps tendon. Modest acromioplasty was performed along the lateral edge which was a bit prominent. A distal clavicle excision was performed as well due to preoperative pain in this area. Description of Procedure Preoperative antibiotics were given. An interscalene block was administered in the preoperative area. The patient was bought brought to the operating room. A general anesthetic was administered. The patient was carefully positioned in the beach chair position. The head and neck were carefully positioned. The non operative extremity was also carefully positioned. The shoulder was prepped and draped in the usual sterile fashion. Examination was performed. Standard posterior and anterior arthroscopic portals were established. Inflow achieved with the arthroscopic pump using saline and epinephrine. The glenohumeral joint was carefully inspected. The rotator cuff was quite healthy. Biceps showed mild hyperemia. There was hyperemia of the rotator cuff tissue. The articular cartilage was normal. There was no capsular contracture. The subscapularis was normal. The biceps was looped and then tacked with the Arthrex system. It was then released from the superior labrum. Tenodesis was accomplished with the knotless SwiveLock suture, placed at the articular margin. Attention was turned to the subacromial space. The tissue was quite scarred. The bursa was very thickened. This tissue was removed. Sutures from the previous [id number] repair were noted. One of them was loose. Tissue was appeared irritable and frayed throughout the supra and anterior infraspinatus. Overall the tendon quality was quite reasonable and thick. A complete bursectomy was performed. The rotator cuff was lightly debrided. A modest acromioplasty was performed. The distal clavicle was excised approximately 1 cm. The Regeneten implant was deployed. The LAUREN anchors were placed medially securing the tendon very nicely. Lateral peek bone anchors were subsequently placed. The graft covered the pathologic tendon very nicely. The arthroscopic instruments were removed. The wounds were closed with 3-0 Monocryl subcuticular suture and steri strips. There were no complications. A sling was applied and the patient brought to the recovery room. Physician studio assistant, Arlette Mondragon PA-C, required for surgery; including patient positioning, draping, arthroscopic camera
== END 2021-08-23 15:35 | disposition home or self-care (01) ==
PROVIDERS: PCP Nurse Practitioner Family; Visit Provider Orthopaedic Surgery
PROC: (CPT 29805; principal; 2021-08-23 10:30)
DX: M75.102 Unspecified rotator cuff tear or rupture of left shoulder, not specified as traumatic (principal); M75.22 Bicipital tendinitis, left shoulder; M19.012 Primary osteoarthritis, left shoulder; G89.18 Other acute postprocedural pain; K21.9 Gastro-esophageal reflux disease without esophagitis; E04.9 Nontoxic goiter, unspecified; E66.9 Obesity, unspecified; Z68.35 Body mass index [BMI] 35.0-35.9, adult; I10 Essential (primary) hypertension
CPT/HCPCS: 64415; 29827; 29828; 29824; 29826; A4565; A9270; C1713; J0690; J1100; J1885; J2250; J2405; J2704; J2710; J3010; J7120

== ENCOUNTER 2021-09-19 08:21 | Outpatient (CLI) | payer BC, SELFPAY ==
--- NOTE | ~2021-09-19 | MM_ITS ---
EXAMINATION: MM screening jovany BI w rush HISTORY: Screening TECHNIQUE: Craniocaudal and mediolateral oblique 3-D tomosynthesis images were obtained and synthetic 2-D images were generated. CAD analysis was submitted and interpreted. COMPARISON: 08/07/2020 BREAST PARENCHYMAL COMPOSITION: Breast composed of scattered areas of fibroglandular density FINDINGS: There is no evidence of suspicious mass, calcification, or architectural distortion to sugg est malignancy in either breast. There has been no suspicious interval change. IMPRESSION: 1. No mammographic evidence of malignancy. 2. Recommend routine screening mammography in one year. BI-RADS Category 1: Negative Reviewed, dictated and finalized at location A.
== END 2021-09-19 08:22 | disposition home or self-care (01) ==
LOC: ANHIMG 08:22
PROVIDERS: PCP Nurse Practitioner Family; Visit Provider Student in an Organized Health Care Education/Training Program
DX: Z12.31 Encounter for screening mammogram for malignant neoplasm of breast (principal)
CPT/HCPCS: 77063; 77067

== ENCOUNTER 2021-10-18 10:41 | Outpatient (CLI) | payer BC, SELFPAY ==
[2021-10-18 12:23] LABS: HIV 1/2 Ab P24 Ag Result Negative (Negative)
[2021-10-18 13:22] LABS: Hepatitis B Surface Antigen Negative (Negative)
[2021-10-18 13:39] LABS: Hepatitis C Virus Antibody Negative (Negative)
[2021-10-21 14:41] LABS: Rapid Plasma Reagin Non-Reactive (NonReactive)
[2021-10-29 15:05] LABS: HSV 1 IgM Screen Negative (Negative); HSV 2 IgM Screen Negative (Negative)
== END 2021-10-18 10:42 | disposition home or self-care (01) ==
LOC: ANHLAB 10:43
PROVIDERS: PCP Nurse Practitioner Family; Visit Provider Student in an Organized Health Care Education/Training Program
DX: Z20.2 Contact with and (suspected) exposure to infections with a predominantly sexual mode of transmission (principal)
CPT/HCPCS: 36415; 86592; 86695; 86696; 86703; 86803; 87340; G0432

== ENCOUNTER 2022-02-12 11:21 | Emergency (ER) | payer BC, SELFPAY ==
[2022-02-12 11:47] VITALS: BP 139/90; PULSE 81; RESP 15; TEMP 36.6; O2SAT 99
[2022-02-12 12:29] LABS: Strep Group A RT-PCR Negative (Negative)
[2022-02-12 12:34] LABS: Influenza A QL RT-PCR Positive (Negative); Influenza B QL RT-PCR Negative (Negative); RSV RNA, RT-PCR Negative (Negative); SARS-CoV-2 RNA PCR Negative
--- NOTE | 2022-02-12 12:47 | ED.URI ---
HPI - URI/Sore Throat General Chief Complaint: Upper Respiratory Infection Stated Complaint: SORE THROAT/SOB Time Seen by Provider: 02/12/22 12:37 Source: patient Mode of arrival: ambulatory Limitations: no limitations History of Present Illness HPI Narrative: 46 years old -[place] female presents with chills, sore throat, dry cough, body aches over the last 4 days. Related Data Home Medications Medication Instructions Recorded Confirmed amlodipine 2.5 mg tablet 2.5 mg PO DAILY 11/07/19 11/26/21 hydrochlorothiazide 25 mg tablet 25 mg PO DAILY 11/07/19 11/26/21 losartan 50 mg tablet 50 mg PO DAILY 11/07/19 11/26/21 gabapentin 300 mg capsule 300 mg PO TID 11/29/19 11/26/21 acetazolamide 500 mg 500 mg PO DAILY 05/13/21 11/26/21 capsule,extended release pantoprazole 40 mg tablet,delayed 40 mg PO DAILY 05/13/21 11/26/21 release meloxicam 7.5 mg tablet 7.5 mg PO DAILY 09/06/21 11/26/21 multivitamin (Daily Multi-Vitamin 1 tablet PO DAILY 09/06/21 11/26/21 tablet) acetazolamide 500 mg mg PO 02/12/22 capsule,extended release amlodipine 2.5 mg tablet mg 02/12/22 bupropion HCl 150 mg 24 hr tablet, mg PO 02/12/22 extended release gabapentin 300 mg capsule mg 02/12/22 medroxyprogesterone 150 mg/mL mg IM 02/12/22 intramuscular syringe potassium chloride 20 mEq meq PO 02/12/22 tablet,extended release Allergies Allergy/AdvReac Type Severity Reaction Status Date / Time latex Allergy Rash Verified 02/12/22 12:33 Review of Systems Review of Systems: All systems reviewed & are unremarkable except as noted in HPI and below PMFSH Past Medical History Medical History Calcific tendinitis of left shoulder GERD (gastroesophageal reflux disease) Goiter HSV (herpes simplex virus) infection Type 1 Hypertension Obesity (BMI 30.0-34.9) Vaginal delivery x2 Surgical History Surgical History History of repair of left rotator cuff (11/2019) x2 08/23/21 History of umbilical hernia repair As a small child Family History Family History Mother Arthritis Hypertension Diabetes mellitus Cerebrovascular accident Father , at age 64 Colon cancer Social History Social History Social History: 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 She has 2 adult sons 1 of which live with her. She is a lifelong nonsmoker, she does not drink alcohol or use illicit substances. Smoking status: Never smoker Alcohol intake: current Alcohol use details: FEW TIMES/YEAR Substance use: never Substance use type: does not use Spiritual care concerns: No Exam Narrative: General appearance: Well-developed, well-nourished Skin: Normal color Head: Normocephalic, nontraumatic Eyes: Clear conjunctiva ENT: Erythematous oropharynx l, ears normal, nose normal Neck: Supple, nontender Chest and respiratory: Airway patent, no respiratory distress, no accessory muscle use Heart: Regular rate/rhythm Abdomen: Soft, nontender, no organomegaly, quiet bowel sounds Vascular: Normal peripheral pulses, normal capillary refill. 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
== END 2022-02-12 13:00 | disposition home or self-care (01) ==
PROVIDERS: Emergency Provider Emergency Medicine; PCP Nurse Practitioner Family
DX: J10.1 Influenza due to other identified influenza virus with other respiratory manifestations (principal); Z20.822 Contact with and (suspected) exposure to COVID-19; K21.9 Gastro-esophageal reflux disease without esophagitis; I10 Essential (primary) hypertension
CPT/HCPCS: 87637; 87651; 99283

== ENCOUNTER 2022-05-19 10:01 | Emergency (ER) | payer BC, SELFPAY ==
[2022-05-19 10:53] VITALS: BP 135/94; PULSE 90; RESP 18; TEMP 36.7; O2SAT 100
[2022-05-19 12:53] LABS: Basophils Percent Auto 0.2 % (0.2-1.2); Eosinophils Absolute Auto 0.2 K/mm3 (0-0.3); Eosinophils Percent Auto 2.3 % (0-4.4); Hematocrit 43.6 % (37.0-47.0); Hemoglobin 14.2 g/dL (12.0-15.0); Immature Granulocyte Absolute 0.03 K/mm3 (0.00-0.031); Immature Granulocyte Percent A 0.4 % (0-0.5); Lymphocytes Absolute Auto 1.03 K/mm3 (0.9-3.2); Lymphocytes Percent Auto 12.6 % (18.3-44.2); Mean Corpuscular HGB Conc 32.6 g/dl (32-36); Mean Corpuscular Hemoglobin 29.6 pg (26-34); Mean Corpuscular Volume 90.8 fl (80-100); Mean Platelet Volume 10.1 fl (7.4-10.4); Monocytes Absolute Auto 0.7 K/mm3 (0.1-0.6); Monocytes Percent Auto 7.9 % (2.6-8.5); Neutrophils Absolute Auto 6.3 K/mm3 (1.3-6.7); Neutrophils Percent Auto 76.6 % (45.5-73.1); Platelet Count Result 274 k/mm3 (150-375); Red Cell Distribution Width 14.8 % (11.5-14.5); White Blood Count 8.2 K/mm3 (4.5-10.0)
[2022-05-19 12:55] LABS: Appearance Urine Cloudy (Clear); Bacteria Urine 1+ /hpf; Bilirubin Urine 1+ (Negative); Blood Urine Negative (Negative); Color Urine Dark Yellow (Yellow); Glucose Urine UA Negative (Negative); Ketones Urine Negative (Negative); Leukocyte Esterase Ur Trace LEU/UL (Negative); Nitrate Urine Negative (Negative); Non Pathogenic Casts 0-2; Protein Urine 1+ mg/dL (Negative); Specific Grav Ur 1.029 (1.001-1.035); Squamous Epithelial Cell Urine Few /hpf (Few); pH Urine 5.5 (5.0-9.0)
[2022-05-19 13:04] LABS: Alanine Aminotransferase 71 U/L (6-35); Albumin Level 4.4 g/dL (3.5-5.1); Alkaline Phosphatase 102 U/L (38-126); Anion Gap 9 mmol/L (8-16); Aspartate Amino Transferase 34 U/L (14-36); Blood Urea Nitrogen 21 mg/dL (7-17); Calcium 8.7 mg/dL (8.4-10.2); Carbon Dioxide 22 mmol/L (22-30); Chloride 110 mmol/L (98-107); Estimated CRCL calculation 76 ml/min; Estimated Glomerular Filt Rate > 60; Glucose 85 mg/dL (65-110); Lipase 103 U/L (23-300); Potassium 2.9 mmol/L (3.4-5.0); Sodium 141 mmol/L (137-145)
[2022-05-19 13:30] LABS: Add Urine Microscopic? YES
--- NOTE | 2022-05-19 13:37 | PC.NURSE ---
pt up to desk inquiring about wait time stating she has been here since 9. made aware that we are unable to provide wait times due to us being an emergency department. made aware that department is full and we are running all 25 beds. pt walks away talking about insurance.
--- NOTE | 2022-05-19 16:29 | ECG_ITS ---
Measurements Intervals [place] Rate: 75 P: -11 WA: 117 QRS: 86 QRSD: 98 T: 134 QT: 373 QTc: 418 Interpretive Statements SINUS RHYTHM WITH SHORT WA INTERVAL NONSPECIFIC ST & T-WAVE ABNORMALITY- ANT/HIGH LAT LEADS BORDERLINE ECG COMPARED TO ECG 03/28/2021 19:49:16 NO SIGNIFICANT CHANGES Electronically Signed On 05-19-2022 16:53:20 HOME MORTGAGE DISCLOSURE ACT SPECIALIST by Weston Carcamo D.O.
--- NOTE | 2022-05-19 16:36 | ED.NAVMDI ---
HPI - Nausea/Vomiting/Diarrhea General Chief complaint: Nausea/Vomiting/Diarrhea Stated complaint: diarrhea, vomiting Time Seen by Provider: 05/19/22 16:18 Source: patient and RN notes reviewed Mode of arrival: ambulatory Limitations: no limitations History of Present Illness HPI Narrative: THis is a 47 year old female with history of hypertension, IBS who presents for evaluation of nausea, vomiting and diarrhea. She states yesterday she developed watery , nonbloody diarrhea. She reports having multiple episodes of diarrhea until 8 am this morning. She also reports nausea and vomiting. She states she has never had abdominal pain. She denies fever, chills, dizziness, or lightheadedness. she reports chronic right leg pain from neuropathy. Related Data Home Medications Medication Instructions Recorded Confirmed amlodipine 2.5 mg tablet 2.5 mg PO DAILY 11/07/19 02/24/22 hydrochlorothiazide 25 mg tablet 25 mg PO DAILY 11/07/19 02/24/22 losartan 50 mg tablet 50 mg PO DAILY 11/07/19 02/24/22 gabapentin 300 mg capsule 300 mg PO TID 11/29/19 02/24/22 pantoprazole 40 mg tablet,delayed 40 mg PO DAILY 05/13/21 02/24/22 release multivitamin (Daily Multi-Vitamin 1 tablet PO DAILY 09/06/21 02/24/22 tablet) acetazolamide 500 mg mg PO 02/12/22 02/24/22 capsule,extended release bupropion HCl 150 mg 24 hr tablet, mg PO 02/12/22 02/24/22 extended release potassium chloride 20 mEq meq PO 02/12/22 02/24/22 tablet,extended release diclofenac potassium 50 mg tablet 50 mg PO DAILY 02/24/22 02/24/22 Allergies Allergy/AdvReac Type Severity Reaction Status Date / Time latex Allergy Rash Verified 05/19/22 16:59 Review of Systems Constitutional: Constitutional: Denies weakness Cardiovascular: Cardiovascular: Denies syncope, Denies rapid heart rate, Denies irregular heart rhythm, Denies leg edema and Denies dyspnea Respiratory: Respiratory: Denies chest congestion, Denies hemoptysis, Denies excessive phlegm production and Denies dyspnea Gastrointestinal: Gastrointestinal: Denies abdominal pain, Denies hematochezia, Reports diarrhea, Reports nausea and Reports vomiting Genitourinary: Genitourinary: Denies hematuria and Denies dysuria Musculoskeletal: Musculoskeletal: Denies joint swelling, Denies loss of height and Denies muscle weakness Neurologic: Denies syncope, Denies focal weakness and Denies weakness PMFSH Past Medical History Medical History (Updated 05/19/22 @ 18:54 by Yuliana Reddy MD) Calcific tendinitis of left shoulder GERD (gastroesophageal reflux disease) Goiter HSV (herpes simplex virus) infection Type 1 Hypertension Obesity (BMI 30.0-34.9) Vaginal delivery x2 Surgical History Surgical History (Updated 05/07/22 @ 07:16 by Lyly Tovar MA) History of endometrial ablation History of repair of left rotator cuff (11/2019) x2 08/23/21 History of tubal ligation History of umbilical hernia repair As a small child Family History Family History Mother Arthritis Hypertension Diabetes mellitus Cerebrovascular accident Father , at age 64 Colon cancer Social History Social History (Updated 05/07/22 @ 07:14 by Lyly Tovar MA) Social History: 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 She has 2 adult sons 1 of which live with her. She is a lifelong nonsmoker, she does not drink alcohol or use illicit substances. Smoking status: Never smoker Alcohol intake: current Alcohol use details: FEW TIMES/YEAR Substance use: never Substance use type: does not use Lack of Transportation: No Lack of Food: Never True Current Housing: I Have Housing Concerned About Future Housing: No Difficulty Paying Gas/Electric Bills: No Difficulty Paying for Meds: No Currently Unemployed: YES Education: Grade School Difficulty w/ Childcare or Family Care: No Living arrangements: wi
[2022-05-19] MEDS: ONDANSETRON INJ 4 MG/2 ML VIAL IV PUSH (16:59)
[2022-05-19] MEDS: LACTATED RINGERS 1,000 ML 999 ML IV CONT (17:00)
[2022-05-19] MEDS: POTASSIUM CHLORIDE 20 MEQ TABLET 40 MEQ PO (17:04)
[2022-05-19 17:26] LABS: Magnesium 2.3 mg/dL (1.6-2.3)
[2022-05-19 18:49] VITALS: O2SAT 100
[2022-05-19 18:50] VITALS: BP 120/87; RESP 16; O2SAT 100
[2022-05-19 19:06] VITALS: O2SAT 100
== END 2022-05-19 19:39 | disposition home or self-care (01) ==
PROVIDERS: Emergency Medicine; Emergency Provider General Practice; PCP Nurse Practitioner Family
DX: K52.9 Noninfective gastroenteritis and colitis, unspecified (principal); E87.6 Hypokalemia; I10 Essential (primary) hypertension; K21.9 Gastro-esophageal reflux disease without esophagitis; G62.9 Polyneuropathy, unspecified; B00.9 Herpesviral infection, unspecified; Z79.899 Other long term (current) drug therapy
CPT/HCPCS: 36415; 80053; 81001; 83690; 83735; 85025; 87086; 93005; 96361; 96374; 99284; A9270; J2405; J7120

== ENCOUNTER 2022-08-25 12:13 | Outpatient (CLI) | payer BC, SELFPAY ==
[2022-08-28 10:08] LABS: Mitochondrial (M2) Ab (IgG) <=20.0 U (<=20.0)
[2022-08-28 14:40] LABS: Hepatitis C RNA, Quant PCR <15 IU/mL
[2022-08-28 19:53] LABS: Ceruloplasmin 28 mg/dL (18-53)
[2022-08-29 21:17] LABS: Actin Antibody (IgG) <20 U (<20)
== END 2022-08-25 12:14 | disposition home or self-care (01) ==
PROVIDERS: PCP Nurse Practitioner Family
DX: R74.01 Elevation of levels of liver transaminase levels (principal)
CPT/HCPCS: 36415; 82390; 83520; 86364; 87522

== ENCOUNTER 2022-08-27 13:46 | Outpatient (CLI) | payer BC, SELFPAY ==
--- NOTE | 2022-09-11 14:48 | WPDSLEEPSTUD ---
Sleep Study Date of Study: 08/27/22 Ordering Provider: JAIRO Reyna Interpreting Physician: Bita Brink MD Sleep Study Type: Polysomnogram Height: 1.55 m Weight: 77.111 kg Body Mass Index: 32.1 Neck Circumference (inches): 13 [place]: 15 Reason for Sleep Study excessive daytime sleepiness Sleep History Karen Blakely is a 47-year-old female with history of insomnia and depression who is having a split night polysomnogram for complaints of excessive daytime sleepiness as well as loud snoring reported to her by others. She rarely awakens from sleep short of breath. She rarely awakens at night with heartburn, belching or cough.?She does not know if she snores however very often others complain that she snores loudly. She frequently has trouble sleeping when she has a cold. She rarely suddenly wakes up gasping for breath during the night. She occasionally has breathing problems at night. She occasionally sweats excessively at night. She constantly notices her heart pounding or beating irregularly during the night. She frequently falls asleep during the day. She occasionally falls asleep involuntarily, but never while driving. She never experiences loss of muscle tone with strong emotion. She never feels paralyzed on waking or falling asleep. She occasionally experiences vivid dreams upon waking or falling asleep. She never feels afraid of going to sleep. She rarely has nightmares. She occasionally recalls her dreams. She frequently has thoughts racing through her mind. She occasionally feels sad or depressed. She frequently feels anxiety or worry about things. She frequently notices parts of her body jerk. She frequently kicks during the night. She occasionally feels crawling or aching feelings in her legs. She constantly feels leg pain at night. She occasionally grinds her teeth or has morning jaw pain. She frequently feels bothered by pain during the day and awakened by pain during the night. She rarely wakes up feeling stiff in the morning. She frequently wakes with sore and aches in her neck, spine or joints. ? ? Normal bedtime is around 11:00p.m., taking about an hour fall asleep. She typically gets about 7 hours of sleep per night. Her wake up time is 7:00 a.m. She wakes up twice at night. While awake, she may read in order to keep her mind from racing. She may stay awake between 2 and 3 hours. She works variable shifts. She takes naps in the afternoon or evening. A short nap lasting 10 or 15 minutes is not refreshing. She is usually drowsy for 2 hours after waking. Habits:??Tobacco: never Caffeine: 1 per day. Alcohol:none Recreational substances: none [facility] Past Medical History Medical History Calcific tendinitis of left shoulder GERD (gastroesophageal reflux disease) Goiter HSV (herpes simplex virus) infection Type 1 Hypertension Obesity (BMI 30.0-34.9) Vaginal delivery x2 Surgical History Surgical History History of endometrial ablation History of repair of left rotator cuff (11/2019) x2 08/23/21 History of tubal ligation History of umbilical hernia repair As a small child Family History Family History Mother Arthritis Hypertension Diabetes mellitus Cerebrovascular accident Father , at age 64 Colon cancer Social History Social History Social History: 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 She has 2 adult sons 1 of which live with her. She is a lifelong nonsmoker, she does not drink alcohol or use illicit substances. Smoking status: Never smoker Alcohol intake: current Alcohol use details: FEW TIMES/YEAR Substance use: never Substance use type: does not use Lack of Transportation: No Lack of Food: Never
[2022-09-11 15:28] VITALS: BMI 32.1
== END 2022-08-27 14:00 | disposition home or self-care (01) ==
LOC: ANHCSM 09-18 13:46
PROVIDERS: PCP Nurse Practitioner Family; Visit Provider Physician Assistant
DX: G47.10 Hypersomnia, unspecified (principal)
CPT/HCPCS: 95810

== ENCOUNTER 2022-11-08 07:52 | Outpatient (CLI) | payer BC, SELFPAY ==
[2022-11-08 08:48] LABS: Basophils Absolute Auto 0.1 K/mm3 (0.0-0.1); Basophils Percent Auto 0.6 % (0.2-1.2); Eosinophils Absolute Auto 0.5 K/mm3 (0-0.3); Eosinophils Percent Auto 4.6 % (0-4.4); Hematocrit 39.5 % (37.0-47.0); Hemoglobin 13.3 g/dL (12.0-15.0); Immature Granulocyte Absolute 0.03 K/mm3 (0.00-0.031); Immature Granulocyte Percent A 0.3 % (0-0.5); Lymphocytes Absolute Auto 2.57 K/mm3 (0.9-3.2); Mean Corpuscular HGB Conc 33.7 g/dl (32-36); Mean Corpuscular Hemoglobin 29.1 pg (26-34); Mean Corpuscular Volume 86.4 fl (80-100); Mean Platelet Volume 11.2 fl (7.4-10.4); Monocytes Absolute Auto 0.8 K/mm3 (0.1-0.6); Monocytes Percent Auto 7.5 % (2.6-8.5); Neutrophils Absolute Auto 6.4 K/mm3 (1.3-6.7); Platelet Count Result 236 k/mm3 (150-375); Red Blood Count 4.57 M/mm3 (4.2-5.4); White Blood Count 10.3 K/mm3 (4.5-10.0)
[2022-11-08 09:02] LABS: Alanine Aminotransferase 30 U/L (6-35); Albumin Level 4.4 g/dL (3.5-5.1); Alkaline Phosphatase 95 U/L (38-126); Anion Gap 9 mmol/L (8-16); Aspartate Amino Transferase 27 U/L (14-36); Bilirubin,Total 0.6 mg/dL (0.2-1.3); Blood Urea Nitrogen 18 mg/dL (7-17); Calcium 9.1 mg/dL (8.4-10.2); Carbon Dioxide 29 mmol/L (22-30); Chloride 101 mmol/L (98-107); Estimated Glomerular Filt Rate > 60; Glucose 89 mg/dL (65-110); Sodium 139 mmol/L (137-145)
[2022-11-08 09:47] LABS: Iron 73 ug/dL (37-170)
[2022-11-08 09:58] LABS: Percent Iron Saturation 19 % (20-50)
[2022-11-12 15:44] LABS: Vitamin D 1,25 (OH)2 Total 42 pg/mL (18-72); Vitamin D2 1,25 (OH)2 <8 pg/mL; Vitamin D3 1,25 (OH)2 42 pg/mL
== END 2022-11-08 07:53 | disposition home or self-care (01) ==
PROVIDERS: PCP Nurse Practitioner Family; Visit Provider Physician Assistant
DX: G47.10 Hypersomnia, unspecified (principal); R53.83 Other fatigue; E87.6 Hypokalemia; D64.9 Anemia, unspecified
CPT/HCPCS: 36415; 80053; 82607; 82652; 82746; 83540; 83550; 84443; 85025

== ENCOUNTER 2023-02-13 05:59 | Emergency (ER) | payer BC, SELFPAY ==
[2023-02-13] VITALS (11 sets, daily range): BP systolic 137–174; BP diastolic 83–113; PULSE 80–126; RESP 16–18; TEMP 36.7–36.9; O2SAT 98–100
--- NOTE | ~2023-02-13 | XR_ITS ---
Portable chest x-ray Comparison: 10/31/2020 Clinical History: Cough Findings: Lungs are clear, without focal consolidation or pleural effusion. Cardiomediastinal silho uette is stable. Bones and soft tissues are unremarkable. Impression: Normal chest. Reviewed, dictated and finalized at [facility]. ER PREPARER Impression: Normal chest.
--- NOTE | 2023-02-13 07:43 | ED.URI ---
HPI - URI/Sore Throat General Chief Complaint: Upper Respiratory Infection Stated Complaint: cold symptoms Time Seen by Provider: 02/13/23 07:01 History of Present Illness HPI Narrative: Patient with history of bronchitis p/w cough, congestion, body aches for last few days; took covid + flu that were negative. No nausea or vomiting. No chest pain or lower extremity swelling Related Data Home Medications Medication Instructions Recorded Confirmed amlodipine 2.5 mg tablet 2.5 mg PO DAILY 11/07/19 10/28/22 hydrochlorothiazide 25 mg tablet 25 mg PO DAILY 11/07/19 10/28/22 losartan 50 mg tablet 50 mg PO DAILY 11/07/19 10/28/22 gabapentin 300 mg capsule 300 mg PO TID 11/29/19 10/28/22 pantoprazole 40 mg tablet,delayed 40 mg PO DAILY 05/13/21 10/28/22 release bupropion HCl 150 mg 24 hr tablet, 300 mg PO 08/04/22 10/28/22 extended release phentermine 37.5 mg capsule 37.5 mg PO DAILY 08/04/22 10/28/22 potassium chloride 20 mEq meq PO DAILY 08/04/22 10/28/22 tablet,extended release Allergies Allergy/AdvReac Type Severity Reaction Status Date / Time latex Allergy Rash Verified 12/29/22 11:11 Review of Systems Review of Systems: All systems reviewed & are unremarkable except as noted in HPI and below PMFSH Past Medical History Medical History Calcific tendinitis of left shoulder GERD (gastroesophageal reflux disease) Goiter HSV (herpes simplex virus) infection Type 1 Hypertension Obesity (BMI 30.0-34.9) Vaginal delivery x2 Surgical History Surgical History History of endometrial ablation History of repair of left rotator cuff (11/2019) x2 08/23/21 History of tubal ligation History of umbilical hernia repair As a small child Family History Family History Mother Arthritis Hypertension Diabetes mellitus Cerebrovascular accident Father , at age 64 Colon cancer Social History Social History Social History: 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 She has 2 adult sons 1 of which live with her. She is a lifelong nonsmoker, she does not drink alcohol or use illicit substances. Smoking status: Never smoker Alcohol intake: current Alcohol use details: FEW TIMES/YEAR Substance use: never Substance use type: does not use Lack of Transportation: No Lack of Food: Never True Current Housing: I Have Housing Concerned About Future Housing: No Difficulty Paying Gas/Electric Bills: No Difficulty Paying for Meds: No Currently Unemployed: YES Education: High School Diploma/GED Difficulty w/ Childcare or Family Care: No Living arrangements: with family Occupation/Education: occupation Gender identity (if verbalized by the patient): Female Sexual Orientation (if Verbalized by the Patient): Straight or Heterosexual Spiritual care concerns: No Exam Narrative: EXAMINATION OF ORGAN SYSTEMS/BODY AREAS: Constitutional: Vital signs per nursing GENERAL: Resting comfortably HEAD: Normal with no signs of head trauma. EYES: EOMI, conjunctiva normal ENT: Some pharyngeal erythema LUNGS: Slight end expiratory wheezes HEART: [Regular rate and rhythm] ABD: [Soft], [nontender to palpation] EXT: Normal range of motion SKIN: [No rashes or lesions.] NEURO: [Alert and oriented x 3. No gross focal sensory or strength deficits.] PSYCH: Normal affect Course Vital Signs Vital signs: Vital Signs Temperature 98.4 F 02/13/23 06:02 Pulse Rate 91 02/13/23 06:02 Respiratory Rate 16 02/13/23 06:02 Blood Pressure 142/96 H 02/13/23 06:02 Pulse Oximetry 98 02/13/23 06:02 Oxygen Delivery Room Air 02/13/23 06:02 Temperature 98.4 F 02/13/23 06:02 Pulse Rate 126 H 02/13/23 09:08
[2023-02-13] MEDS: IPRATROPIUM BR 0.02% INH SOLN 0.5 MG/2.5 ML VIAL 1 MG INHALATION (07:48)
[2023-02-13] MEDS: ALBUTEROL SULFATE NEB 2.5 MG/3 ML INH 15 MG INHALATION (07:48)
[2023-02-13] MEDS: ACETAMINOPHEN 500 MG TABLET 1000 MG PO (09:16)
[2023-02-13 10:13] LABS: Strep Group A RT-PCR NOT DETECTED (Negative)
== END 2023-02-13 10:54 | disposition home or self-care (01) ==
PROVIDERS: Emergency Provider Emergency Medicine; PCP Nurse Practitioner Family
DX: J20.9 Acute bronchitis, unspecified (principal); I10 Essential (primary) hypertension; K21.9 Gastro-esophageal reflux disease without esophagitis; E66.9 Obesity, unspecified; Z68.34 Body mass index [BMI] 34.0-34.9, adult
CPT/HCPCS: 71045; 87651; 94640; 99283; A9270

== ENCOUNTER 2023-03-04 08:00 | Outpatient (CLI) | payer BC, SELFPAY ==
--- NOTE | ~2023-03-04 | XR_ITS ---
Right Shoulder Technique: AP and scapular Y views were obtained. Clinical History: Pain Findings: No fracture or dislocation is seen. Osseous alignment is anatomic. The glenohumeral and acr omioclavicular joint spaces are preserved. Soft tissues are unremarkable. Impression: Unremarkable right shoulder radiographs. Reviewed, dictated and finalized at [facility]. LATORY AFFAIRS COORDINATOR Impression: Unremarkable right shoulder radiographs.
--- NOTE | ~2023-03-04 | XR_ITS ---
Left Shoulder Technique: AP and scapular Y views were obtained. Clinical History: Pain Findings: No fracture or dislocation is seen. Osseous alignment is anatomic. The glenohumeral and acr omioclavicular joint spaces are preserved. Soft tissues are unremarkable. Impression: Unremarkable left shoulder radiographs. Reviewed, dictated and finalized at [facility]. DING TRADES INSTRUCTOR Impression: Unremarkable left shoulder radiographs.
== END 2023-03-04 08:01 | disposition home or self-care (01) ==
LOC: ANHIMG 08:03
PROVIDERS: PCP Physician Assistant; Visit Provider Orthopaedic Surgery
DX: M25.511 Pain in right shoulder (principal); Z98.890 Other specified postprocedural states; M25.512 Pain in left shoulder
CPT/HCPCS: 73030

== ENCOUNTER 2023-03-13 03:59 | Day surgery (SDC) | payer BC, SELFPAY ==
[2023-02-20 11:43] VITALS: BMI 34.2
--- NOTE | 2023-03-11 09:53 | SUR.PREOP ---
Patient called to see if she can come earlier on Mar 13. Message left on patient's voicemail.
--- NOTE | 2023-03-12 17:40 | PM.HPGS ---
History of Present Illness History of Present Illness Consent: Risks, benefits, and alternatives have been discussed and questions answered. Patient agrees to proceed with procedure. Chief complaint: neoplasm screening Narrative: Karen Blakely is a 47 year old female Referred for colon cancer screening. she has family history of colon cancer, her father. Review of Systems Review of Systems: All systems reviewed & are unremarkable except as noted in HPI and below PMFSH Past Medical History Medical History Calcific tendinitis of left shoulder GERD (gastroesophageal reflux disease) Goiter HSV (herpes simplex virus) infection Type 1 Hypertension Obesity (BMI 30.0-34.9) Vaginal delivery x2 Surgical History Surgical History History of endometrial ablation History of repair of left rotator cuff (11/2019) x2 08/23/21 History of tubal ligation History of umbilical hernia repair As a small child Family History Family History Mother Arthritis Hypertension Diabetes mellitus Cerebrovascular accident Father , at age 64 Colon cancer Social History Social History Social History: 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 She has 2 adult sons 1 of which live with her. She is a lifelong nonsmoker, she does not drink alcohol or use illicit substances. Smoking status: Never smoker Alcohol intake: current Alcohol use details: FEW TIMES/YEAR Substance use: never Substance use type: does not use Lack of Transportation: No Lack of Food: Never True Current Housing: I Have Housing Concerned About Future Housing: No Difficulty Paying Gas/Electric Bills: No Difficulty Paying for Meds: No Currently Unemployed: YES Education: High School Diploma/GED Difficulty w/ Childcare or Family Care: No Living arrangements: with family Additional living arrangements comments: lives with son Occupation/Education: occupation Gender identity (if verbalized by the patient): Female Sexual Orientation (if Verbalized by the Patient): Straight or Heterosexual Spiritual care concerns: No Meds Home Medications and Allergies Home Medications Medication Instructions Recorded Confirmed Type amlodipine 2.5 mg tablet 2.5 mg PO DAILY 11/07/19 03/05/23 History hydrochlorothiazide 25 mg tablet 25 mg PO DAILY 11/07/19 03/05/23 History losartan 50 mg tablet 50 mg PO DAILY 11/07/19 03/05/23 History gabapentin 300 mg capsule 300 mg PO TID 11/29/19 03/05/23 History pantoprazole 40 mg tablet,delayed 40 mg PO DAILY 05/13/21 03/05/23 History release ondansetron 4 mg disintegrating 4 mg PO Q6H PRN nausea and 05/19/22 03/05/23 Rx tablet vomiting #10 tabs bupropion HCl 150 mg 24 hr tablet, 300 mg PO DAILY 08/04/22 03/05/23 History extended release potassium chloride 20 mEq 20 meq PO DAILY 08/04/22 03/05/23 History tablet,extended release medroxyprogesterone 150 mg/mL 150 mg IM [id number] #1 mL 09/24/22 03/05/23 Rx intramuscular syringe albuterol sulfate 90 mcg/actuation 2 puff inhalation QID PRN 02/13/23 03/05/23 Rx aerosol inhaler shortness of breath or wheezing #8.5 grams fluticasone propionate 50 1 spray intranasal DAILY #16 grams 02/13/23 03/05/23 Rx mcg/actuation nasal spray,suspension (Allergy Relief (fluticasone)) modafinil 200 mg tablet 200 mg PO QAM 30 days #30 tabs 02/24/23 03/05/23 Rx sertraline 200 mg capsule 200 mg PO DAILY 02/24/23 03/05/23 History Allergies Allergy/AdvReac Type Severity Reaction Status Date / Time latex Allergy Rash Verified 03/13/23 11:57 Exam Resp: Auscultation: clear to auscultation bilaterally Cardio: Rate: regular rate Rhythm: regular rhythm GI: GI Palp: Yes Soft to palpation and
[2023-03-13 11:58] VITALS: BP 124/75; PULSE 80; RESP 20; TEMP 36.2; O2SAT 99
[2023-03-13] MEDS: LACTATED RINGERS 1,000 ML 150 ML IV CONT (12:08)
--- NOTE | 2023-03-13 12:08 | WPDANESEPPF ---
Anes - Initial Pre Proc Eval Procedure: Operation Date: 03/13/23 13:00 Proposed Procedures p Screening Colonoscopy - Mike Spaulding MD Date/Time: 03/13/23 12:08 Surgeon: Mike Spaulding MD Pre Op Diagnosis: neoplasm screening Patient Data Age: 47 Gender: F Height: 1.57 m Weight: 83.2 kg Last Vital Signs Temp 97.2 F L 03/13/23 11:58 Pulse 80 03/13/23 11:58 Resp 20 03/13/23 11:58 BP 124/75 03/13/23 11:58 Pulse Ox 99 03/13/23 11:58 O2 Del Method Room Air 03/13/23 11:58 Allergies Allergy/AdvReac Type Severity Reaction Status Date / Time latex Allergy Rash Verified 03/13/23 11:57 Home Medications Medication Instructions Recorded Confirmed Type amlodipine 2.5 mg tablet 2.5 mg PO DAILY 11/07/19 03/05/23 History hydrochlorothiazide 25 mg tablet 25 mg PO DAILY 11/07/19 03/05/23 History losartan 50 mg tablet 50 mg PO DAILY 11/07/19 03/05/23 History gabapentin 300 mg capsule 300 mg PO TID 11/29/19 03/05/23 History pantoprazole 40 mg tablet,delayed 40 mg PO DAILY 05/13/21 03/05/23 History release ondansetron 4 mg disintegrating 4 mg PO Q6H PRN nausea and 05/19/22 03/05/23 Rx tablet vomiting #10 tabs bupropion HCl 150 mg 24 hr tablet, 300 mg PO DAILY 08/04/22 03/05/23 History extended release potassium chloride 20 mEq 20 meq PO DAILY 08/04/22 03/05/23 History tablet,extended release medroxyprogesterone 150 mg/mL 150 mg IM [id number] #1 mL 09/24/22 03/05/23 Rx intramuscular syringe albuterol sulfate 90 mcg/actuation 2 puff inhalation QID PRN 02/13/23 03/05/23 Rx aerosol inhaler shortness of breath or wheezing #8.5 grams fluticasone propionate 50 1 spray intranasal DAILY #16 grams 02/13/23 03/05/23 Rx mcg/actuation nasal spray,suspension (Allergy Relief (fluticasone)) modafinil 200 mg tablet 200 mg PO QAM 30 days #30 tabs 02/24/23 03/05/23 Rx sertraline 200 mg capsule 200 mg PO DAILY 02/24/23 03/05/23 History Patient hx anesthesia problems: none Family hx anesthesia problems: none Results Review: All pre-operative results and documents have been reviewed as part of the pre-operative evaluation. [facility] Past Medical History Medical History Calcific tendinitis of left shoulder GERD (gastroesophageal reflux disease) Goiter HSV (herpes simplex virus) infection Type 1 Hypertension Obesity (BMI 30.0-34.9) Vaginal delivery x2 Surgical History Surgical History History of endometrial ablation History of repair of left rotator cuff (11/2019) x2 08/23/21 History of tubal ligation History of umbilical hernia repair As a small child Family History Family History Mother Arthritis Hypertension Diabetes mellitus Cerebrovascular accident Father , at age 64 Colon cancer Social History Social History Social History: 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 She has 2 adult sons 1 of which live with her. She is a lifelong nonsmoker, she does not drink alcohol or use illicit substances. Smoking status: Never smoker Alcohol intake: current Alcohol use details: FEW TIMES/YEAR Substance use: never Substance use type: does not use Lack of Transportation: No Lack of Food: Never True Current Housing: I Have Housing Concerned About Future Housing: No Difficulty Paying Gas/Electric Bills: No Difficulty Paying for Meds: No Currently Unemployed: YES Education: High School Diploma/GED Difficulty w/ Childcare or Family Care: No Living arrangements: with family Additional living arrangements comments: lives with son Occupation/Education: occupation Gender identity (if verbalized by the patient): Female Sexual Orientation (if Verbalized by the Patient): Straight or Hete
[2023-03-13] MEDS: SIMETHICONE ORAL SUSPENSION 20 MG/0.3 ML 30 ML BOTTLE 0.6 ML IRRIGATION (13:05)
[2023-03-13 13:13] VITALS: BP 104/62; PULSE 70; RESP 17; O2SAT 98
[2023-03-13 13:23] VITALS: BP 121/84; PULSE 63; RESP 26; O2SAT 100
[2023-03-13 13:33] VITALS: BP 136/92; PULSE 61; RESP 26; O2SAT 100
== END 2023-03-13 14:15 | disposition home or self-care (01) ==
PROVIDERS: PCP Physician Assistant; Visit Provider Internal Medicine Gastroenterology
PROC: 0DJD8ZZ Inspection of Lower Intestinal Tract, Via Natural or Artificial Opening Endoscopic (ICD-10-PCS; CPT 45378; principal; 2023-03-13 13:00)
DX: Z12.11 Encounter for screening for malignant neoplasm of colon (principal); K64.8 Other hemorrhoids; I10 Essential (primary) hypertension; K21.9 Gastro-esophageal reflux disease without esophagitis; Z79.51 Long term (current) use of inhaled steroids; Z82.49 Family history of ischemic heart disease and other diseases of the circulatory system; Z80.0 Family history of malignant neoplasm of digestive organs
CPT/HCPCS: 45378; J2704; J7120

== ENCOUNTER 2023-07-06 21:51 | Emergency (ER) | payer BC, SELFPAY ==
--- NOTE | ~2023-07-06 | XR_ITS ---
EXAMINATION: XR chest 2V Exam Date/Time: 07/06/2023 22:19 CDT HISTORY: cp, sweating, nausea Comparison: 02/13/2023. RESULT: Lines, tubes, and devices: None. Lungs and pleura: Clear. Cardiomediastinal silhouette: Stable. Other: No acute osseous or upper abdominal finding. IMPRESSION: No acute cardiopulmonary process. Reviewed, dictated and finalized at location K.
--- NOTE | 2023-07-06 21:52 | ECG_ITS ---
SEE SCANNED COPY FOR CONFIRMED REPORT MTDD
[2023-07-06 22:02] VITALS: BP 128/87; PULSE 71; RESP 18; TEMP 36.6; O2SAT 100
[2023-07-06 22:23] LABS: Basophils Absolute Auto 0.1 K/mm3 (0.0-0.1); Basophils Percent Auto 0.7 % (0.2-1.2); Eosinophils Absolute Auto 0.6 K/mm3 (0-0.3); Hemoglobin 13.6 g/dL (12.0-15.0); Immature Granulocyte Absolute 0.03 K/mm3 (0.00-0.031); Immature Granulocyte Percent A 0.3 % (0-0.5); Lymphocytes Absolute Auto 2.95 K/mm3 (0.9-3.2); Lymphocytes Percent Auto 30.6 % (18.3-44.2); Mean Corpuscular HGB Conc 33.2 g/dl (32-36); Mean Corpuscular Volume 87.4 fl (80-100); Mean Platelet Volume 10.4 fl (7.4-10.4); Monocytes Absolute Auto 0.8 K/mm3 (0.1-0.6); Monocytes Percent Auto 8.3 % (2.6-8.5); Neutrophils Absolute Auto 5.2 K/mm3 (1.3-6.7); Neutrophils Percent Auto 54.1 % (45.5-73.1); Platelet Count Result 275 k/mm3 (150-375); Red Blood Count 4.69 M/mm3 (4.2-5.4); Red Cell Distribution Width 13.6 % (11.5-14.5); White Blood Count 9.6 K/mm3 (4.5-10.0)
[2023-07-06 22:34] LABS: Prothrombin Time 13.6 Seconds (11.1-14.7)
[2023-07-06 22:35] LABS: Partial Thromboplastin Time 26.2 Seconds (22.3-36.8)
[2023-07-06 22:52] LABS: Troponin I < 0.012 ng/mL (0.000-0.034)
[2023-07-06 22:54] LABS: Alanine Aminotransferase 29 U/L (6-35); Albumin Level 4.4 g/dL (3.5-5.1); Alkaline Phosphatase 82 U/L (38-126); Anion Gap 10 mmol/L (4-12); Aspartate Amino Transferase 24 U/L (14-36); Bilirubin,Total 0.5 mg/dL (0.2-1.3); Blood Urea Nitrogen 12 mg/dL (7-17); Calcium 10.2 mg/dL (8.4-10.2); Carbon Dioxide 26 mmol/L (22-30); Chloride 107 mmol/L (98-107); Estimated CRCL calculation 71 ml/min; Estimated Glomerular Filt Rate > 60; Glucose 99 mg/dL (65-110); Lipase 179 U/L (23-300); Potassium 3.2 mmol/L (3.4-5.0); Sodium 143 mmol/L (137-145)
[2023-07-07 01:02] VITALS: O2SAT 100
[2023-07-07] MEDS: ASPIRIN 81 MG CHEWABLE TABLET 324 MG PO (01:05)
[2023-07-07 01:12] LABS: D Dimer 0.35 ug/mL (<0.48)
--- NOTE | 2023-07-07 01:18 | ECG_ITS ---
SEE SCANNED COPY FOR CONFIRMED REPORT MTDD
[2023-07-07 01:32] VITALS: BP 143/90; PULSE 75; RESP 23; O2SAT 100
--- NOTE | 2023-07-07 01:33 | ED.CHESTPAIN ---
HPI - Chest Pain General Chief Complaint: Chest Pain Stated Complaint: chest pain, sweating, back pain, left arm Time Seen by Provider: 07/07/23 00:56 Source: patient Mode of arrival: ambulatory Limitations: no limitations History of Present Illness HPI narrative: This is a 48 year old female that presents to the ER for a pre-syncopal episode. Reports she was using the restroom and started to feel lightheaded like she may pass out. Her family member took her blood pressure and it was low. Reports on her way to the hospital she started to develop left sided chest pain. The pain has resolved. She does report continued lightheadedness. Denies shortness of breath or palpitations. Related Data Home Medications Medication Instructions Recorded Confirmed hydrochlorothiazide 25 mg tablet 25 mg PO DAILY 11/07/19 05/25/23 gabapentin 300 mg capsule 300 mg PO TID 11/29/19 05/25/23 pantoprazole 40 mg tablet,delayed 40 mg PO DAILY 05/13/21 05/25/23 release bupropion HCl 150 mg 24 hr tablet, 300 mg PO DAILY 08/04/22 05/25/23 extended release potassium chloride 20 mEq 20 meq PO DAILY 08/04/22 05/25/23 tablet,extended release sertraline 200 mg capsule 200 mg PO DAILY 02/24/23 05/25/23 amlodipine 10 mg tablet 10 mg PO DAILY 05/25/23 05/25/23 losartan 100 mg tablet 100 mg PO DAILY 05/25/23 05/25/23 Allergies Allergy/AdvReac Type Severity Reaction Status Date / Time latex Allergy Rash Verified 05/25/23 13:15 Review of Systems Review of Systems: CONSTITUTIONAL: Denies fever CARDIOVASCULAR: Reports chest pain. Denies palpitations, or edema. RESPIRATORY: Denies dyspnea. GASTROINTESTINAL: Denies abdominal pain, nausea, vomiting All systems reviewed & are unremarkable except as noted in HPI and below PMFSH Past Medical History Medical History Calcific tendinitis of left shoulder GERD (gastroesophageal reflux disease) Goiter HSV (herpes simplex virus) infection Type 1 Hypertension Obesity (BMI 30.0-34.9) Vaginal delivery x2 Surgical History Surgical History History of endometrial ablation History of repair of left rotator cuff (11/2019) x2 08/23/21 History of tubal ligation History of umbilical hernia repair As a small child Family History Family History Mother Arthritis Hypertension Diabetes mellitus Cerebrovascular accident Father , at age 64 Colon cancer Social History Social History Social History: 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 She has 2 adult sons 1 of which live with her. She is a lifelong nonsmoker, she does not drink alcohol or use illicit substances. Smoking status: Never smoker Alcohol intake: current Alcohol use details: FEW TIMES/YEAR Substance use: never Substance use type: does not use Lack of Transportation: No Lack of Food: Never True Current Housing: I Have Housing Concerned About Future Housing: No Difficulty Paying Gas/Electric Bills: No Difficulty Paying for Meds: No Currently Unemployed: YES Education: High School Diploma/GED Difficulty w/ Childcare or Family Care: No Living arrangements: with family Additional living arrangements comments: lives with son Occupation/Education: occupation Gender identity (if verbalized by the patient): Female Sexual Orientation (if Verbalized by the Patient): Straight or Heterosexual Spiritual care concerns: No Exam Narrative: GENERAL: Well-appearing, well-nourished, and in no acute distress. HEAD: Normocephalic, atraumatic. EYES: PERRLA and EOMI. ENT: Nares clear, no rhinorrhea or epistaxis. Mucous membranes moist. Oropharynx without tonsillar hypertrophy exudate or other lesions. Bilateral TMs pearly gomez non-bulging NECK: Supple. No adenopathy or masses. N
[2023-07-07] MEDS: ONDANSETRON INJ 4 MG/2 ML VIAL IV PUSH (01:39)
[2023-07-07] MEDS: MECLIZINE HCL 25 MG TABLET PO (01:39)
[2023-07-07] MEDS: SODIUM CHLORIDE 0.9% IV 1,000 ML 999 ML IV CONT (01:41)
[2023-07-07] MEDS: POTASSIUM CHLORIDE 20 MEQ PACKET (FOR LIQUID) 40 MEQ PO (01:41)
[2023-07-07 01:58] LABS: Magnesium 2.2 mg/dL (1.6-2.3)
[2023-07-07 02:05] LABS: Troponin I < 0.012 ng/mL (0.000-0.034)
[2023-07-07 02:45] LABS: Thyroid Stimulating Hormone Reflex 0.801 uIU/mL (0.465-4.68)
[2023-07-07 02:54] VITALS: BP 135/93; PULSE 72; RESP 23; O2SAT 100
[2023-07-07 03:23] VITALS: BP 110/69; PULSE 69; RESP 16; O2SAT 100
== END 2023-07-07 03:23 | disposition home or self-care (01) ==
PROVIDERS: Emergency Medicine; Emergency Provider Physician Assistant; PCP Physician Assistant
DX: R55 Syncope and collapse (principal); E87.6 Hypokalemia; K21.9 Gastro-esophageal reflux disease without esophagitis; I10 Essential (primary) hypertension
CPT/HCPCS: 36415; 71046; 80053; 83690; 83735; 84443; 84484; 85025; 85380; 85610; 85730; 93005; 96361; 96374; 99284; A9270; J2405; J7030

== ENCOUNTER 2023-07-11 21:46 | Emergency (ER) | payer BC, SELFPAY ==
--- NOTE | ~2023-07-11 | XR_ITS ---
XR chest 2V DATE: 07/11/2023 23:03 INDICATION: Chest pain TECHNIQUE: AP and lateral views COMPARISON: July 06, 2023 2 view chest FINDINGS: Normal heart size. No hilar or mediastinal enlargement. No pulmonary infiltrate or consolid ation, pleural effusion or pulmonary vascular congestion or pneumothorax. IMPRESSION: Negative Reviewed, dictated and finalized at location A. IMPRESSION: Negative
--- NOTE | ~2023-07-11 | CT_ITS ---
EXAMINATION: CT abdomen pelvis w con DATE: 07/12/2023 01:31 INDICATION: Epigastric and right upper quadrant abdominal pain TECHNIQUE: Computed tomography (CT) of the abdomen and pelvis was performed with 100 CC Omnipaque 350 intravenous contrast. Automated exposure control and iterative reconstruction technique were employe d. Exam dose: 594.75 mGy-cm total exam DLP. COMPARISON: 10/28/2020 CT chest abdomen pelvis. FINDINGS: Minimal discoid atelectasis or scarring at the base of the lingula. The lung bases are jude r infiltrate or consolidation. Normal heart size. No pericardial or pleural effusion. There are multiple dependent gallstones. No gallbladder wall thickening or pericholecystic fluid; min imal pericholecystic fat stranding is suggested. No bile duct or pancreatic duct dilatation. The liver, spleen, pancreas, adrenal glands and kidneys are unremarkable with the exception of an lisa roximate 5 mm left renal cortical cyst. No urinary tract calculus or hydroureteronephrosis. The urinary bladder is unremarkable. Normal caliber of the abdominal aorta. No intraperitoneal or retroperitoneal mass lesion or adenopath y or ascites. Impression 3 cm soft tissue mass contiguous with the lateral aspect of the uterine fundus may be a se blair fibroid. Mild colonic diverticulosis; no CT evidence of diverticulitis. Normal appendix. No bowel distraction, bowel wall thickening, pneumatosis or intraperitoneal free air . Included skeletal structures are unremarkable. IMPRESSION: Cholelithiasis; cannot exclude acute cholecystitis. Consider gallbladder ultrasound and possibly radionuclide bone scan Reviewed, dictated and finalized at Location [facility]. Reviewed, dictated and finalized at location A. Impression 3 cm soft tissue mass contiguous with the lateral aspect of the uter ine fundus may be a serosal fibroid. Mild colonic diverticulosis; no CT evidence of diverticulitis. Normal appendix. No bowel distraction, bowel wall thickening, pneumatosis or in traperitoneal free air. Included skeletal structures are unremarkable. IMPRESSION: Cholelithiasis; cannot exclude acute cholecystitis. Consider gallb ladder ultrasound and possibly radionuclide bone scan
--- NOTE | 2023-07-11 21:47 | ECG_ITS ---
SEE SCANNED COPY FOR CONFIRMED REPORT MTDD
[2023-07-11 21:54] VITALS: BP 179/102; PULSE 89; RESP 20; TEMP 37.1; O2SAT 99
[2023-07-11 22:05] LABS: Basophils Absolute Auto 0.1 K/mm3 (0.0-0.1); Basophils Percent Auto 0.9 % (0.2-1.2); Eosinophils Absolute Auto 0.6 K/mm3 (0-0.3); Eosinophils Percent Auto 5.7 % (0-4.4); Hematocrit 39.5 % (37.0-47.0); Hemoglobin 13.3 g/dL (12.0-15.0); Immature Granulocyte Absolute 0.04 K/mm3 (0.00-0.031); Immature Granulocyte Percent A 0.4 % (0-0.5); Lymphocytes Absolute Auto 2.75 K/mm3 (0.9-3.2); Lymphocytes Percent Auto 27.2 % (18.3-44.2); Mean Corpuscular HGB Conc 33.7 g/dl (32-36); Mean Corpuscular Hemoglobin 29.4 pg (26-34); Mean Corpuscular Volume 87.2 fl (80-100); Mean Platelet Volume 10.5 fl (7.4-10.4); Monocytes Absolute Auto 0.6 K/mm3 (0.1-0.6); Monocytes Percent Auto 5.8 % (2.6-8.5); Neutrophils Absolute Auto 6.1 K/mm3 (1.3-6.7); Platelet Count Result 255 k/mm3 (150-375); Red Blood Count 4.53 M/mm3 (4.2-5.4); Red Cell Distribution Width 13.3 % (11.5-14.5); White Blood Count 10.1 K/mm3 (4.5-10.0)
[2023-07-11 22:17] LABS: Alanine Aminotransferase 25 U/L (6-35); Albumin Level 4.4 g/dL (3.5-5.1); Alkaline Phosphatase 74 U/L (38-126); Anion Gap 11 mmol/L (4-12); Aspartate Amino Transferase 27 U/L (14-36); Bilirubin,Total 0.7 mg/dL (0.2-1.3); Blood Urea Nitrogen 21 mg/dL (7-17); Calcium 9.7 mg/dL (8.4-10.2); Carbon Dioxide 21 mmol/L (22-30); Chloride 108 mmol/L (98-107); Estimated CRCL calculation 89 ml/min; Estimated Glomerular Filt Rate > 60; Glucose 131 mg/dL (65-110); Lipase 211 U/L (23-300); Potassium 3.3 mmol/L (3.4-5.0); Sodium 140 mmol/L (137-145)
[2023-07-11 22:17] LABS: Prothrombin Time 13.4 Seconds (11.1-14.7)
[2023-07-11 22:18] LABS: Partial Thromboplastin Time 30.7 Seconds (22.3-36.8)
[2023-07-11 22:26] LABS: Troponin I < 0.012 ng/mL (0.000-0.034)
[2023-07-12 00:15] VITALS: PULSE 67
[2023-07-12 00:16] VITALS: BP 150/84; PULSE 67; RESP 15; TEMP 37; O2SAT 100; O2SAT 99
--- NOTE | 2023-07-12 00:26 | ECG_ITS ---
SEE SCANNED COPY FOR CONFIRMED REPORT MTDD
--- NOTE | 2023-07-12 00:44 | ED.GENADULT ---
HPI - General Adult General Chief complaint: Chest Pain Stated complaint: Chest pain/abd pain Time Seen by Provider: 07/12/23 00:10 History of Present Illness HPI narrative: This is a 48-year-old female presenting ED with a chief complaint of epigastric chest pain. Patient was getting ready for work when she started having burning pain in the epigastric area that radiates into her chest and throat. Patient has a history of gastritis as was be taking Protonix. She has nausea but no vomiting or diarrhea. No fevers chills or shortness of breath. Patient was seen here several days ago with similar symptoms. Related Data Home Medications Medication Instructions Recorded Confirmed hydrochlorothiazide 25 mg tablet 25 mg PO DAILY 11/07/19 05/25/23 gabapentin 300 mg capsule 300 mg PO TID 11/29/19 05/25/23 pantoprazole 40 mg tablet,delayed 40 mg PO DAILY 05/13/21 05/25/23 release bupropion HCl 150 mg 24 hr tablet, 300 mg PO DAILY 08/04/22 05/25/23 extended release potassium chloride 20 mEq 20 meq PO DAILY 08/04/22 05/25/23 tablet,extended release sertraline 200 mg capsule 200 mg PO DAILY 02/24/23 05/25/23 amlodipine 10 mg tablet 10 mg PO DAILY 05/25/23 05/25/23 losartan 100 mg tablet 100 mg PO DAILY 05/25/23 05/25/23 Allergies Allergy/AdvReac Type Severity Reaction Status Date / Time latex Allergy Rash Verified 07/11/23 21:57 [facility] Past Medical History Medical History Calcific tendinitis of left shoulder GERD (gastroesophageal reflux disease) Goiter HSV (herpes simplex virus) infection Type 1 Hypertension Obesity (BMI 30.0-34.9) Vaginal delivery x2 Surgical History Surgical History History of endometrial ablation History of repair of left rotator cuff (11/2019) x2 08/23/21 History of tubal ligation History of umbilical hernia repair As a small child Family History Family History Mother Arthritis Hypertension Diabetes mellitus Cerebrovascular accident Father , at age 64 Colon cancer Social History Social History (Reviewed 05/25/23 @ 13:18 by Calos Ordoñez Social History: 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 She has 2 adult sons 1 of which live with her. She is a lifelong nonsmoker, she does not drink alcohol or use illicit substances. Smoking status: Never smoker Alcohol intake: current Alcohol use details: FEW TIMES/YEAR Substance use: never Substance use type: does not use Lack of Transportation: No Lack of Food: Never True Current Housing: I Have Housing Concerned About Future Housing: No Difficulty Paying Gas/Electric Bills: No Difficulty Paying for Meds: No Currently Unemployed: YES Education: High School Diploma/GED Difficulty w/ Childcare or Family Care: No Living arrangements: with family Additional living arrangements comments: lives with son Occupation/Education: occupation Gender identity (if verbalized by the patient): Female Sexual Orientation (if Verbalized by the Patient): Straight or Heterosexual Spiritual care concerns: No Exam Narrative: APPEARANCE: No apparent distress. Head: atraumatic. EYES: EOMI, NOSE: Atraumatic NECK: Trachea midline RESPIRATORY: No increased rate of breathing, CTAB CARDIOVASCULAR: RRR, ABDOMINAL: Tenderness to palpation in the epigastric area. No guarding or rebound. Point of care ultrasound showed a full gallbladder without gallbladder wall thickening. Sonographic Mcgee's is negative. MUSCULOSKELETAl: No obvious deformities NEURO: Alert. Moving 4/4 extremities SKIN:: Warm, dry. Normal color PSYCHIATRIC: Normal affect Course Vital Signs Vital signs: Vital Signs Temperature 98.7 F 07/11/23 21:54 Pulse Rate 89 07/11/23 21:54 Respiratory Rate 20 07/11/23 21:54 Blood Pressur
[2023-07-12] MEDS: MAG HYDROX/AL HYDROX/SIMETH 30 ML UDC PO (00:54)
[2023-07-12] MEDS: PANTOPRAZOLE SODIUM IV 40 MG VIAL IV PUSH (00:54)
[2023-07-12] MEDS: KETOROLAC 15 MG/ML VIAL (*BKC) IV PUSH (00:54)
[2023-07-12 01:10] VITALS: BP 147/84; PULSE 72; RESP 12; O2SAT 98
[2023-07-12 01:18] LABS: Troponin I < 0.012 ng/mL (0.000-0.034)
[2023-07-12] MEDS: HYDROmorphone HCL INJ (*CRX) 1 MG/ML SYR 0.5 MG IV PUSH (03:06)
[2023-07-12 03:37] VITALS: BP 146/93; PULSE 66; RESP 16; O2SAT 98
== END 2023-07-12 04:22 | disposition home or self-care (01) ==
PROVIDERS: Emergency Provider Emergency Medicine; PCP Physician Assistant
DX: K29.70 Gastritis, unspecified, without bleeding (principal); I10 Essential (primary) hypertension; E66.9 Obesity, unspecified; Z68.35 Body mass index [BMI] 35.0-35.9, adult; K21.9 Gastro-esophageal reflux disease without esophagitis
CPT/HCPCS: 36415; 71046; 74177; 80053; 83690; 84484; 85025; 85610; 85730; 93005; 96374; 96375; 99284; A9270; C9113; J1170; J1885; Q9967

== ENCOUNTER 2023-07-15 09:37 | Outpatient (CLI) | payer BC, SELFPAY ==
--- NOTE | 2023-07-15 11:00 | NEURO_ITS ---
Impression: # Complains of right lower extremity pain with no h/o trauma. # Normal Nerve Conduction Study. # Normal needle/EMG exam. # Clinical correlation recommended. Nerve Conduction Studies Anti Sensory Summary Table Stim Site NR Peak (ms) P-T Amp (?V) Site1 Site2 Delta-P (ms) Dist (cm) Eliezer (m/s) Right Saphenous Anti Sensory (Ant Med Mall) 14cm 3.3 0.6 14cm Ant Med Mall 3.3 0.0 Right Sup Fibular Anti Sensory (Ant Lat Mall) 14 cm 3.1 10.0 14 cm Ant Lat Mall 3.1 16.0 52 Right Sural Anti Sensory (Lat Mall) Calf 3.4 11.1 Calf Lat Mall 3.4 16.0 47 Motor Summary Table Stim Site NR Onset (ms) O-P Amp (mV) Site1 Site2 Delta-0 (ms) Dist (cm) Eliezer (m/s) Right Peroneal Motor (Vastus Med) Ankle 4.0 3.7 Popit Ankle 7.3 38.0 52 Popit 11.3 3.2 Right Tibial Motor (Abd Munoz Brev) Ankle 4.2 2.6 Knee Ankle 7.8 39.0 50 Knee 12.0 1.8 F Wave Studies NR F-Lat (ms) L-R F-Lat (ms) Right Peroneal (Mrkrs) (EDB) 42.66 Right Tibial (Mrkrs) (Abd Hallucis) 42.85 EMG Side Muscle Nerve Root Ins Act Fibs Amp Dur Recrt Comment Right AntTibialis Dp Br Fibular L4-5 Nml Nml Nml Nml Nml Right Gastroc Tibial S1-2 Nml Nml Nml Nml Nml Right Fibularis Long Sup Br Fibular L5-S1 Nml Nml Nml Nml Nml Right Flex Dig Long Tibial L5-S2 Nml Nml Nml Nml Nml Right Ext Dig Brev Dp Br Fibular L5, S1 Nml Nml Nml Nml Nml Right QuadratusFem QuadFemoris L4-5, S1 Nml Nml Nml Nml Nml MTDD
== END 2023-07-15 09:38 | disposition home or self-care (01) ==
LOC: ANHNEURO 09:38
PROVIDERS: PCP Physician Assistant; Visit Provider Physician Assistant
DX: G57.90 Unspecified mononeuropathy of unspecified lower limb (principal)
CPT/HCPCS: 95886; 95909

== ENCOUNTER 2023-08-09 08:51 | Emergency (ER) | payer BC, SELFPAY ==
[2023-08-09] VITALS (16 sets, daily range): BP systolic 129–167; BP diastolic 73–103; PULSE 71; RESP 16; O2SAT 97–100
--- NOTE | ~2023-08-09 | US_ITS ---
EXAMINATION: US right upper quadrant DATE: 08/09/2023 10:47 INDICATION: Abdominal pain. TECHNIQUE: Multiple grayscale and Doppler ultrasound images of the abdomen were obtained. COMPARISON: CT abdomen and pelvis 07/12/2023 FINDINGS: The visualized portions of the head, body, and tail of the pancreas are normal. The liver i s normal without focal lesion. There is normal flow in main portal vein. The gallbladder is distended and contains gallstones. No gallbladder wall thickening or sonographic Mcgee sign. The common duct is normal and measures 3 mm. IMPRESSION: 1. Cholelithiasis. Gallbladder distention may be secondary to fasting. If there is high clinical conc neo for acute cholecystitis, consider hepatobiliary scintigraphy. Reviewed, dictated and finalized at location E. IMPRESSION: 1. Cholelithiasis. Gallbladder distention may be secondary to fasting. If there is high clinical concern for acute cholecystitis, consider hepatobiliary scint igraphy.
[2023-08-09] MEDS: MORPHINE SULFATE (*CRX) 2 MG/ML INJ IV PUSH (09:11)
[2023-08-09] MEDS: ONDANSETRON INJ 4 MG/2 ML VIAL IV PUSH (09:11)
[2023-08-09 09:23] LABS: Basophils Absolute Auto 0.1 K/mm3 (0.0-0.1); Basophils Percent Auto 0.7 % (0.2-1.2); Eosinophils Absolute Auto 0.6 K/mm3 (0-0.3); Eosinophils Percent Auto 5.6 % (0-4.4); Hemoglobin 13.1 g/dL (12.0-15.0); Immature Granulocyte Absolute 0.03 K/mm3 (0.00-0.031); Immature Granulocyte Percent A 0.3 % (0-0.5); Lymphocytes Absolute Auto 2.49 K/mm3 (0.9-3.2); Lymphocytes Percent Auto 25.3 % (18.3-44.2); Mean Corpuscular HGB Conc 32.8 g/dl (32-36); Mean Corpuscular Hemoglobin 28.9 pg (26-34); Mean Corpuscular Volume 88.1 fl (80-100); Monocytes Absolute Auto 0.8 K/mm3 (0.1-0.6); Monocytes Percent Auto 8.1 % (2.6-8.5); Neutrophils Absolute Auto 5.9 K/mm3 (1.3-6.7); Platelet Count Result 229 k/mm3 (150-375); Red Blood Count 4.54 M/mm3 (4.2-5.4); Red Cell Distribution Width 13.2 % (11.5-14.5); White Blood Count 9.9 K/mm3 (4.5-10.0)
[2023-08-09 09:29] LABS: Appearance Urine Clear (Clear); Bacteria Urine None Seen /hpf; Bilirubin Urine Negative (Negative); Blood Urine Trace (Negative); Color Urine Yellow (Yellow); Glucose Urine UA Negative (Negative); Ketones Urine Negative (Negative); Leukocyte Esterase Ur Trace LEU/UL (Negative); Nitrate Urine Negative (Negative); Non Pathogenic Casts 0-2; Protein Urine Negative (Negative); Specific Grav Ur 1.011 (1.001-1.035); Squamous Epithelial Cell Urine Occasional /hpf (Few); Urobilinogen Urine 0.2 mg/dL (<2.0); WBC Urine 0-5 /hpf (0-3)
[2023-08-09 09:34] LABS: Lactic Acid Reflex 1.2 mmol/L (0.7-2.0); SPREG INTERNAL CONTROL Positive; Serum Qual hCG Negative
[2023-08-09 09:36] LABS: Add Urine Microscopic? YES; Alanine Aminotransferase 26 U/L (6-35); Albumin Level 4.7 g/dL (3.5-5.1); Alkaline Phosphatase 75 U/L (38-126); Anion Gap 9 mmol/L (4-12); Aspartate Amino Transferase 31 U/L (14-36); Bilirubin,Total 0.6 mg/dL (0.2-1.3); Blood Urea Nitrogen 14 mg/dL (7-17); Calcium 9.3 mg/dL (8.4-10.2); Carbon Dioxide 24 mmol/L (22-30); Chloride 108 mmol/L (98-107); Estimated CRCL calculation 91 ml/min; Estimated Glomerular Filt Rate > 60; Glucose 110 mg/dL (65-110); Lipase 148 U/L (23-300); Potassium 3.3 mmol/L (3.4-5.0); Sodium 141 mmol/L (137-145)
--- NOTE | 2023-08-09 10:12 | ED.ABDPAIN ---
HPI - Abdominal Pain General Chief Complaint: Abdominal Pain Stated Complaint: ABD PAIN Time Seen by Provider: 08/09/23 09:00 History of Present Illness HPI narrative: Patient is a 48-year-old female who presents emergency department this morning complaining of mid epigastric/right upper quadrant abdominal pain. Patient states that she does have a history of gallstones and in the past when she had similar symptoms was due to gallstones. Patient was provided with a general surgeon to follow up with and states that her appointment is upcoming, however the pain which started yesterday in the evening was too severe for her to wait until her appointment. Patient also admits to history of acid reflux. She denies any nausea or vomiting, any lower abdominal pain, any fevers or chills. Patient also denies any chest pain or shortness of breath and has no additional symptoms or concerns at this time. Related Data Home Medications Medication Instructions Recorded Confirmed hydrochlorothiazide 25 mg tablet 25 mg PO DAILY 11/07/19 05/25/23 gabapentin 300 mg capsule 300 mg PO TID 11/29/19 05/25/23 pantoprazole 40 mg tablet,delayed 40 mg PO DAILY 05/13/21 05/25/23 release bupropion HCl 150 mg 24 hr tablet, 300 mg PO DAILY 08/04/22 05/25/23 extended release potassium chloride 20 mEq 20 meq PO DAILY 08/04/22 05/25/23 tablet,extended release sertraline 200 mg capsule 200 mg PO DAILY 02/24/23 05/25/23 amlodipine 10 mg tablet 10 mg PO DAILY 05/25/23 05/25/23 losartan 100 mg tablet 100 mg PO DAILY 05/25/23 05/25/23 Allergies Allergy/AdvReac Type Severity Reaction Status Date / Time latex Allergy Rash Verified 07/11/23 21:57 Review of Systems Review of Systems: All systems are reviewed and are negative unless stated otherwise in the HPI. [facility] Past Medical History Medical History Calcific tendinitis of left shoulder GERD (gastroesophageal reflux disease) Goiter HSV (herpes simplex virus) infection Type 1 Hypertension Obesity (BMI 30.0-34.9) Vaginal delivery x2 Surgical History Surgical History History of endometrial ablation History of repair of left rotator cuff (11/2019) x2 08/23/21 History of tubal ligation History of umbilical hernia repair As a small child Family History Family History Mother Arthritis Hypertension Diabetes mellitus Cerebrovascular accident Father , at age 64 Colon cancer Social History Social History Social History: 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 She has 2 adult sons 1 of which live with her. She is a lifelong nonsmoker, she does not drink alcohol or use illicit substances. Smoking status: Never smoker Alcohol intake: current Alcohol use details: FEW TIMES/YEAR Substance use: never Substance use type: does not use Lack of Transportation: No Lack of Food: Never True Current Housing: I Have Housing Concerned About Future Housing: No Difficulty Paying Gas/Electric Bills: No Difficulty Paying for Meds: No Currently Unemployed: YES Education: High School Diploma/GED Difficulty w/ Childcare or Family Care: No Living arrangements: with family Additional living arrangements comments: lives with son Occupation/Education: occupation Gender identity (if verbalized by the patient): Female Sexual Orientation (if Verbalized by the Patient): Straight or Heterosexual Spiritual care concerns: No Exam Narrative: General: Alert, awake, afebrile, in no acute distress. HEENT: PERRL, no rhinorrhea, no post nasal drip, oropharynx clear. Cardiovascular: Regular rate and rhythm, no murmurs, rubs or gallops, no peripheral edema. Respiratory: Clear to auscultation bilaterally, no tachypnea, no
--- NOTE | 2023-08-09 10:30 | ECG_ITS ---
SEE SCANNED COPY FOR CONFIRMED REPORT MTDD
[2023-08-09] MEDS: POTASSIUM CHLORIDE 20 MEQ ER TABLET 40 MEQ PO (11:44)
== END 2023-08-09 12:01 | disposition home or self-care (01) ==
PROVIDERS: Emergency Provider Emergency Medicine; PCP Physician Assistant
DX: K80.20 Calculus of gallbladder without cholecystitis without obstruction (principal); R10.13 Epigastric pain; K21.9 Gastro-esophageal reflux disease without esophagitis; I10 Essential (primary) hypertension
CPT/HCPCS: 36415; 76705; 80053; 81001; 82248; 83605; 83690; 84703; 85025; 93005; 96374; 96375; 99284; A9270; J2270; J2405

== ENCOUNTER 2023-08-15 07:20 | Outpatient (CLI) | payer BC, SELFPAY ==
--- NOTE | ~2023-08-15 | MM_ITS ---
EXAMINATION: MM screening jovany BI w rush HISTORY: Screening mammogram TECHNIQUE: Craniocaudal and mediolateral oblique 3-D tomosynthesis images were obtained and synthetic 2-D images were generated. CAD analysis was submitted and interpreted. COMPARISON: 09/19/2021, 08/07/2020 bilateral screening mammogram examinations BREAST PARENCHYMAL COMPOSITION: There are scattered areas of fibroglandular density. FINDINGS: There is no evidence of suspicious mass, calcification, or architectural distortion to sugg est malignancy in either breast. There has been no suspicious interval change. IMPRESSION: 1. No mammographic evidence of malignancy. 2. Recommend routine screening mammography in one year. BI-RADS Category 1: Negative Reviewed, dictated and finalized at location A.
== END 2023-08-15 07:21 | disposition home or self-care (01) ==
LOC: ANHIMG 07:24
PROVIDERS: PCP Physician Assistant; Visit Provider Registered Nurse
DX: Z12.31 Encounter for screening mammogram for malignant neoplasm of breast (principal)
CPT/HCPCS: 77063; 77067

== ENCOUNTER 2023-08-20 07:38 | Outpatient (CLI) | payer BC, SELFPAY ==
[2023-08-20 08:23] LABS: Alanine Aminotransferase 24 U/L (6-35); Albumin Level 4.4 g/dL (3.5-5.1); Alkaline Phosphatase 87 U/L (38-126); Amylase 91 U/L (30-110); Aspartate Amino Transferase 26 U/L (14-36); Bilirubin,Total 0.7 mg/dL (0.2-1.3); Lipase 145 U/L (23-300)
== END 2023-08-20 07:39 | disposition home or self-care (01) ==
PROVIDERS: PCP Physician Assistant; Visit Provider Surgery
DX: Z01.818 Encounter for other preprocedural examination (principal); K80.10 Calculus of gallbladder with chronic cholecystitis without obstruction
CPT/HCPCS: 36415; 80076; 82150; 83690

== ENCOUNTER 2023-08-26 01:17 | Day surgery (SDC) | payer BC, SELFPAY ==
[2023-08-14 11:56] VITALS: BMI 37.0
--- NOTE | 2023-08-14 12:01 | PC.NURSE ---
Report to the Outpatient Waiting Room, entrance under the green pavilion located off [facility], at time _1000_ on date _[id number]_. Planned Procedure Time: _1200_. Time changes happen often and if your time is changed the preop area will call you the afternoon before. - You and your visitor will be asked to self-screen and do not enter if you have any COVID symptoms. - A mask is optional within the hospital at this time. Patients may have clear liquids (water, carbonated beverages, clear teas, apple juice) until 3 hours prior to surgery with a maximum of 20 ounces. - No food from midnight until time of surgery Take the following medications with a SIP of water the morning of surgery: ___Amlodipine, Bupropion, Gabapentin and Sertraline___ DO NOT STOP ANY OF YOUR OTHER PRESCRIPTION MEDICATIONS PRIOR TO SURGERY ?EXCEPT THE FOLLOWING Medications to discontinue per physician None Date to take last dose Please no make-up, nail tanzanian, hairspray, perfume, deodorant, or body powder the day of surgery. No jewelry (including any body piercings) or valuables the day of surgery, leave them at home. Please take a shower or bath the night before, or the morning of, surgery with an antibacterial soap. Wear comfortable, loose fitting clothing. - Jewelry must be removed prior to entering the operating room. Rings and piercings that are not removed may be cut off. - The hospital will not accept responsibility for valuables. - Please leave all valuables, including medications, at home the day of surgery. If you are going home after surgery, a licensed backhaul driver must drive you home. - NO public transportation without another adult if you receive anesthesia. - We recommend that an adult stay with you for 24 hours following discharge. - We also recommend that you do not drive, make important decision, drink alcoholic beverages, or take any drugs that were not prescribed by your health care provider for at least 24 hours after your discharge time. Follow any additional instructions given to you from your surgeon. If you or anyone in your household have experienced Covid symptoms in the past week, please notify your surgeon or the nurse liaison at the phone number below for possible testing. Telephone instructions given to __Kalinquinn__and asked if any additional questions and then verbalized understanding. Patient advised to call surgeon office or pre surgery nurse liaison [phone] if any additional questions.
[2023-08-26] VITALS (11 sets, daily range): BP systolic 125–144; BP diastolic 74–91; PULSE 69–104; RESP 12–16; TEMP 36.4–36.9; O2SAT 92–100
[2023-08-26] MEDS: ACETAMINOPHEN 500 MG TABLET 1000 MG PO (10:50)
[2023-08-26] MEDS: LACTATED RINGERS 1,000 ML 30 ML IV CONT ×2 (11:00→14:30)
[2023-08-26] MEDS: KETOROLAC 15 MG/ML VIAL (*BKC) IV PUSH (11:15)
--- NOTE | 2023-08-26 11:41 | WPDANESEPPF ---
Anes - Initial Pre Proc Eval Procedure: Operation Date: 08/26/23 12:00 Proposed Procedures p Laparoscopic Cholecystectomy - Dario Wong MD Date/Time: 08/26/23 11:41 Surgeon: Dario Wong MD Pre Op Diagnosis: Chronic Calculous cholecystitis Patient Data Age: 48 Gender: F Height: 1.57 m Weight: 89.6 kg Last Vital Signs Temp 97.6 F 08/26/23 11:13 Pulse 69 08/26/23 11:13 Resp 16 08/26/23 11:13 BP 128/74 08/26/23 11:13 Pulse Ox 98 08/26/23 11:13 O2 Del Method Room Air 08/26/23 11:13 Allergies Allergy/AdvReac Type Severity Reaction Status Date / Time latex Allergy Rash Verified 08/26/23 10:29 Home Medications Medication Instructions Recorded Confirmed Type hydrochlorothiazide 25 mg tablet 25 mg PO DAILY 11/07/19 08/19/23 History gabapentin 300 mg capsule 300 mg PO TID 11/29/19 08/19/23 History pantoprazole 40 mg tablet,delayed 40 mg PO DAILY 05/13/21 08/19/23 History release bupropion HCl 150 mg 24 hr tablet, 300 mg PO DAILY 08/04/22 08/19/23 History extended release potassium chloride 20 mEq 20 meq PO DAILY 08/04/22 08/19/23 History tablet,extended release albuterol sulfate 90 mcg/actuation 2 puff inhalation QID PRN 02/13/23 08/19/23 Rx aerosol inhaler shortness of breath or wheezing #8.5 grams modafinil 200 mg tablet 200 mg PO QAM 30 days #30 tabs 02/24/23 08/19/23 Rx sertraline 200 mg capsule 200 mg PO DAILY 02/24/23 08/19/23 History medroxyprogesterone 150 mg/mL 150 mg IM [id number] #1 mL 03/23/23 08/19/23 Rx intramuscular syringe amlodipine 10 mg tablet 10 mg PO DAILY 05/25/23 08/19/23 History losartan 100 mg tablet 100 mg PO DAILY 05/25/23 08/19/23 History famotidine 20 mg tablet (Pepcid) 20 mg PO BID 6 weeks #84 tabs 07/12/23 08/19/23 Rx acetaminophen 500 mg tablet 1,000 mg PO TID PRN Pain 08/14/23 08/19/23 History Laboratory Tests 08/26/23 10:47 Beta HCG, Quant Pending Patient hx anesthesia problems: none Family hx anesthesia problems: none Results Review: All pre-operative results and documents have been reviewed as part of the pre-operative evaluation. [facility] Past Medical History Medical History Calcific tendinitis of left shoulder GERD (gastroesophageal reflux disease) Goiter HSV (herpes simplex virus) infection Type 1 Hypertension Obesity (BMI 30.0-34.9) Vaginal delivery x2 Surgical History Surgical History History of endometrial ablation History of repair of left rotator cuff (11/2019) x2 08/23/21 History of tubal ligation History of umbilical hernia repair As a small child Family History Family History Mother Arthritis Hypertension Diabetes mellitus Cerebrovascular accident Father , at age 64 Colon cancer Social History Social History Social History: 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 She has 2 adult sons 1 of which live with her. She is a lifelong nonsmoker, she does not drink alcohol or use illicit substances. Smoking status: Never smoker Alcohol intake: current Alcohol use details: FEW TIMES/YEAR Substance use: never Substance use type: does not use Do You Feel Safe in your Home?: Yes Lack of Transportation: No Lack of Food: Never True Current Housing: I Have Housing Concerned About Future Housing: No Difficulty Paying Gas/Electric Bills: No Difficulty Paying for Meds: No Currently Unemployed: No Education: High School Diploma/GED Difficulty w/ Childcare or Family Care: No Living arrangements: with family Additional living arrangements comments: lives with son Occupation/Education: occupation Gender identity (if verbalized by the patient): Female Sexual Orientation (if
[2023-08-26 11:42] LABS: Beta HCG Quantitative < 2.39 mIU/ML
--- NOTE | 2023-08-26 12:06 | WPDHPUPDATE1 ---
History and Physical Update Update Date/Time: 08/26/23 12:06 History and Physical has been reviewed, including an updated exam of the patient. There are NO changes in the patient's condition. Risks, benefits, and alternatives have been discussed and questions answered. Patient agrees to proceed with procedure.
[2023-08-26] MEDS: ceFAZolin 2 GM/D5W 50 ML 2 GM/50 ML BAG IVPB (12:50)
[2023-08-26] MEDS: BUPIVACAINE/EPINEPHRINE 0.5% 10 ML VIAL 30 ML INFILTRATE (12:59)
--- NOTE | 2023-08-26 14:39 | W.PM.PROC2 ---
Procedure Note - Detailed Date of Procedure 08/26/23 Pre-op Diagnosis Chronic Calculous cholecystitis Post-op Diagnosis Same Procedure Performed Laparoscopic cholecystectomy Surgeon Dario Wong MD Allergy Specialist Christiana Beaver Anesthesia General and Local Indications Patient has been to the emergency room a couple of times with abrupt onset epigastric pain. The last time it radiated to the right upper quadrant and to her back. She has had gallstones both on CT and ultrasound. She has a strong family history of gallbladder disease as well. She is taken to surgery now for laparoscopic cholecystectomy for chronic cholecystitis with gallstones. Findings Chronic inflammation, thickened gallbladder wall. Liver appeared normal. There was a stone in the cystic duct. 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 Description of Procedure Patient was taken to surgery and induced into general anesthesia. The abdomen is prepped and draped. Trocars were placed in the usual fashion using Skaffl optical trocars and a 5 mm camera. Local anesthetic was infiltrated prior to placement of each of the trocars. Patient was placed in reverse Trendelenburg. Adhesions to the gallbladder were taken down. These were largely of omentum and they were filmy. Gallbladder wall was thickened with chronic inflammation. It also had a tortuous path in the area of the infundibulum and cystic duct. There was a particularly significant amount of inflammation here. The gallbladder was partially intrahepatic over its lower 3rd. I placed an additional, 5th, trocar in the left mid abdomen. A laparoscopic Kittner was introduced through this trocar to retract the liver edge from the medial aspect of the gallbladder for better exposure and dissection. The right hepatic artery was readily apparent and quite large. It passed over the common hepatic duct. We carefully dissected in the cholecystohepatic triangle. The gallbladder was dissected off the liver and careful dissection was carried out of the infundibulum and cystic duct. The cystic artery was diminutive and was simply divided with the cautery with no incident. Once we had dissected the infundibulum and cystic duct I then went back to the distal gallbladder and dissected the gallbladder off the liver at its lower half. Critical view was achieved. The cystic duct was quite short and had a large stone in its proximal aspect. I dissected the cystic duct carefully. The cystic duct was also dilated it. Divide and the cystic duct it just below the impact did stone. I then used a Vicryl endoloop to ligate the cystic duct stump. This went well and the cystic duct stump appeared to be adequately closed. We then continued dissection of the gallbladder from the liver. This went well. There was no entry into the gallbladder and no injury and the liver. Eventually the gallbladder was dissected completely free of the liver. It was placed in an Endo-Catch bag and retrieved via the 10 11 epigastric trocar site. I then replaced the epigastric trocar. We exposed the gallbladder fossa. Irrigation and suction were carried out. There was no evidence of bleeding or bile leakage. We then evacuated CO2 and removed the trocar sleeves. Skin wounds were closed with subcuticular 4-0 Monocryl skin suture. The wounds were dressed with Exofin surgical adhesive. Patient was awakened and taken to recovery in good condition. Sponge needle counts were correct x2. Estimated Blood Loss -5 Drains No Packing No Pathology Yes (Gallbladder) Complications None Condition Stable Disposition PACU [facility] Billing Surgery - Charge Forward: Surgery Billing (Laparoscopic cholecystectomy)
--- NOTE | 2023-08-26 14:56 | SUR.PHASEI ---
1455: Simple mask removed.
[2023-08-26] MEDS: fentaNYL CITRATE INJ (*CRX) 100 MCG/2 ML VIAL 25 MCG IV PUSH ×4 (15:05→15:24)
[2023-08-26] MEDS: oxyCODONE HCL (*CRX) 5 MG TAB IR PO (16:05)
--- NOTE | 2023-08-26 17:01 | SUR.PHASEII ---
1650 PATIENT MEETS ANESTHESIA DISCHARGE CRITERIA. DRESSED & WAITING ON SON FOR RIDE HOME.
== END 2023-08-26 17:07 | disposition home or self-care (01) ==
PROVIDERS: PCP Physician Assistant; Visit Provider Surgery
PROC: 0FT44ZZ Resection of Gallbladder, Percutaneous Endoscopic Approach (ICD-10-PCS; CPT 47562; principal; 2023-08-26 12:00)
DX: K80.10 Calculus of gallbladder with chronic cholecystitis without obstruction (principal); I10 Essential (primary) hypertension; K21.9 Gastro-esophageal reflux disease without esophagitis; E66.9 Obesity, unspecified; Z68.36 Body mass index [BMI] 36.0-36.9, adult; Z79.51 Long term (current) use of inhaled steroids
CPT/HCPCS: 47562; 36415; 84702; 88304; A9270; J0690; J1100; J1170; J1885; J2250; J2405; J2704; J3010; J7120

== ENCOUNTER 2023-09-16 07:57 | Outpatient (CLI) | payer BC, SELFPAY ==
--- NOTE | ~2023-09-16 | US_ITS ---
EXAMINATION: US right upper quadrant DATE: 09/16/2023 08:54 INDICATION: Diarrhea, unspecified. TECHNIQUE: Multiple grayscale and Doppler ultrasound images of the abdomen were obtained. COMPARISON: CT abdomen and pelvis 07/12/2023 FINDINGS: The visualized portions of the head, body, and tail of the pancreas are normal. The liver i s normal without focal lesion. There is normal flow in main portal vein. The gallbladder is absent. T he common duct is normal and measures 3 mm. IMPRESSION: 1. Normal right upper quadrant ultrasound status post cholecystectomy. Reviewed, dictated and finalized at location A.
[2023-09-16 09:30] LABS: Hematocrit 39.9 % (37.0-47.0); Hemoglobin 12.9 g/dL (12.0-15.0); Mean Corpuscular HGB Conc 32.3 g/dl (32-36); Mean Corpuscular Hemoglobin 28.7 pg (26-34); Mean Corpuscular Volume 88.9 fl (80-100); Mean Platelet Volume 11.3 fl (7.4-10.4); Platelet Count Result 235 k/mm3 (150-375); Red Blood Count 4.49 M/mm3 (4.2-5.4); Red Cell Distribution Width 12.9 % (11.5-14.5); White Blood Count 7.4 K/mm3 (4.5-10.0)
[2023-09-16 09:49] LABS: Alanine Aminotransferase 59 U/L (6-35); Albumin Level 3.9 g/dL (3.5-5.1); Alkaline Phosphatase 81 U/L (38-126); Anion Gap 5 mmol/L (4-12); Aspartate Amino Transferase 34 U/L (14-36); Bilirubin,Total 0.5 mg/dL (0.2-1.3); Blood Urea Nitrogen 14 mg/dL (7-17); Calcium 8.7 mg/dL (8.4-10.2); Carbon Dioxide 25 mmol/L (22-30); Chloride 111 mmol/L (98-107); Estimated Glomerular Filt Rate > 60; Glucose 89 mg/dL (65-110); Lipase 137 U/L (23-300); Potassium 3.7 mmol/L (3.4-5.0); Sodium 141 mmol/L (137-145)
[2023-09-16 09:56] LABS: Band Neutrophils Percent 2 % (0-6); Lymphocytes Absolute Manual 1.85 K/mm3 (1.1-4.5); Monocytes Absolute Manual 0.74 K/mm3 (0.1-0.90); Monocytes Percent Manual 10 % (3-9); Neutrophils Percent Manual 40 % (46-73); Total Cells Counted 100
[2023-09-16 10:03] LABS: Eosinophils Percent Manual 23 % (0-4)
[2023-09-16 10:04] LABS: Platelet Estimate Adequate (Adequate); Schistocytes None Seen
== END 2023-09-16 07:58 | disposition home or self-care (01) ==
LOC: ANHIMG 07:59
PROVIDERS: PCP Physician Assistant; Visit Provider Surgery
DX: R19.7 Diarrhea, unspecified (principal)
CPT/HCPCS: 36415; 76705; 80053; 83690; 85025

== ENCOUNTER 2023-10-08 15:20 | Outpatient (CLI) | payer BC, SELFPAY ==
[2023-10-08 15:57] LABS: Basophils Absolute Auto 0.1 K/mm3 (0.0-0.1); Basophils Percent Auto 0.7 % (0.2-1.2); Eosinophils Absolute Auto 0.5 K/mm3 (0-0.3); Hematocrit 42.4 % (37.0-47.0); Hemoglobin 13.9 g/dL (12.0-15.0); Immature Granulocyte Absolute 0.01 K/mm3 (0.00-0.031); Immature Granulocyte Percent A 0.1 % (0-0.5); Lymphocytes Absolute Auto 2.03 K/mm3 (0.9-3.2); Lymphocytes Percent Auto 22.5 % (18.3-44.2); Mean Corpuscular HGB Conc 32.8 g/dl (32-36); Mean Corpuscular Hemoglobin 28.1 pg (26-34); Mean Corpuscular Volume 85.7 fl (80-100); Mean Platelet Volume 11.5 fl (7.4-10.4); Monocytes Absolute Auto 0.5 K/mm3 (0.1-0.6); Monocytes Percent Auto 5.2 % (2.6-8.5); Neutrophils Percent Auto 66.5 % (45.5-73.1); Platelet Count Result 163 k/mm3 (150-375); Red Blood Count 4.95 M/mm3 (4.2-5.4); Red Cell Distribution Width 12.6 % (11.5-14.5)
[2023-10-08 16:52] LABS: Alanine Aminotransferase 40 U/L (6-35); Albumin Level 4.8 g/dL (3.5-5.1); Alkaline Phosphatase 99 U/L (38-126); Anion Gap 14 mmol/L (4-12); Aspartate Amino Transferase 29 U/L (14-36); Bilirubin,Total 0.7 mg/dL (0.2-1.3); Blood Urea Nitrogen 13 mg/dL (7-17); CRP < 0.5 mg/dL (<1.0); Calcium 9.4 mg/dL (8.4-10.2); Carbon Dioxide 25 mmol/L (22-30); Chloride 100 mmol/L (98-107); Estimated Glomerular Filt Rate > 60; Glucose 95 mg/dL (65-110); Potassium 3.1 mmol/L (3.4-5.0); Sodium 139 mmol/L (137-145)
[2023-10-08 18:16] LABS: Immunoglobulin A 293 mg/dL (70-400); Immunoglobulin G 1697 mg/dL (700-1600); Immunoglobulin M 312 mg/dL (40-230)
[2023-10-13 07:16] LABS: Reference Lab Test Result 8.6
== END 2023-10-08 15:21 | disposition home or self-care (01) ==
LOC: ANHLAB 15:22
PROVIDERS: PCP Physician Assistant; Visit Provider Internal Medicine Hematology & Oncology
DX: D72.110 Idiopathic hypereosinophilic syndrome [IHES] (principal)
CPT/HCPCS: 36415; 80053; 82607; 82784; 83520; 85025; 86140; 88184; 88271; 88275

== ENCOUNTER 2023-12-23 08:19 | Outpatient (CLI) | payer BC, SELFPAY ==
[2023-12-23 08:38] LABS: Basophils Absolute Auto 0.1 K/mm3 (0.0-0.1); Basophils Percent Auto 0.9 % (0.2-1.2); Eosinophils Absolute Auto 0.6 K/mm3 (0-0.3); Eosinophils Percent Auto 6.6 % (0-4.4); Hematocrit 39.5 % (37.0-47.0); Hemoglobin 12.9 g/dL (12.0-15.0); Immature Granulocyte Absolute 0.02 K/mm3 (0.00-0.031); Immature Granulocyte Percent A 0.2 % (0-0.5); Lymphocytes Absolute Auto 2.79 K/mm3 (0.9-3.2); Lymphocytes Percent Auto 30.3 % (18.3-44.2); Mean Corpuscular HGB Conc 32.7 g/dl (32-36); Mean Corpuscular Hemoglobin 28.1 pg (26-34); Mean Corpuscular Volume 86.1 fl (80-100); Mean Platelet Volume 10.9 fl (7.4-10.4); Monocytes Absolute Auto 0.7 K/mm3 (0.1-0.6); Monocytes Percent Auto 7.3 % (2.6-8.5); Neutrophils Percent Auto 54.7 % (45.5-73.1); Platelet Count Result 244 k/mm3 (150-375); Red Blood Count 4.59 M/mm3 (4.2-5.4); Red Cell Distribution Width 12.8 % (11.5-14.5); White Blood Count 9.2 K/mm3 (4.5-10.0)
[2023-12-24 11:23] LABS: Protein, Total 7.1 g/dL (6.1-8.1)
[2023-12-29 14:34] LABS: Lambda Light Chain 21.7 mg/L (5.7-26.3)
[2023-12-31 13:28] LABS: Albumin 3.8 g/dL (3.8-4.8); Alpha 1 Globulin 0.3 g/dL (0.2-0.3); Alpha 2 Globulin 0.7 g/dL (0.5-0.9); Beta 1 Globulin 0.6 g/dL (0.4-0.6); Gamma Globulin 1.4 g/dL (0.8-1.7)
== END 2023-12-23 08:20 | disposition home or self-care (01) ==
LOC: ANHLAB 08:21
PROVIDERS: PCP Physician Assistant; Visit Provider Internal Medicine Hematology & Oncology
DX: D72.110 Idiopathic hypereosinophilic syndrome [IHES] (principal); E53.8 Deficiency of other specified B group vitamins; D72.9 Disorder of white blood cells, unspecified
CPT/HCPCS: 36415; 82607; 83883; 84155; 84165; 85025

== ENCOUNTER 2024-08-11 07:25 | Outpatient (CLI) | payer BC, SELFPAY ==
--- NOTE | ~2024-08-11 | XR_ITS ---
XR shoulder RT min 2V Ordering provider: Roque Danileson MD History: . M75.31 - Calcific tendinitis of right shoulder . Comparison: None. FINDINGS: BONES: No acute fracture or dislocation. JOINT SPACES: The acromioclavicular joint is normal. The glenohumeral joint is normal. SOFT TISSUES: Normal. IMPRESSION: No acute osseous abnormality right shoulder. Reviewed, dictated and finalized at location A.
== END 2024-08-11 07:26 | disposition home or self-care (01) ==
PROVIDERS: PCP Physician Assistant; Visit Provider Orthopaedic Surgery
DX: M75.31 Calcific tendinitis of right shoulder (principal)
CPT/HCPCS: 73030

== ENCOUNTER 2024-09-06 09:04 | Outpatient (CLI) | payer BC, SELFPAY ==
--- NOTE | ~2024-09-06 | MM_ITS ---
EXAMINATION: MM screening [facility] BI w rush HISTORY: Screening mammogram TECHNIQUE: Craniocaudal and mediolateral oblique 3-D tomosynthesis images were obtained and synthetic 2-D images were generated. CAD analysis was submitted and interpreted. COMPARISON: 08/15/2023, 09/19/2021, 08/07/2020 BREAST PARENCHYMAL COMPOSITION:Not Dense. There are scattered areas of fibroglandular density. FINDINGS: No suspicious mass, calcification, or architectural distortion are identified in either basilio ast to suggest malignancy. There has been no suspicious interval change. IMPRESSION: No mammographic evidence of malignancy. Recommend routine screening mammography in one year. BI-RADS Category 1: Negative Reviewed, dictated and finalized at location .
== END 2024-09-06 09:05 | disposition home or self-care (01) ==
PROVIDERS: PCP Physician Assistant; Visit Provider Nurse Practitioner Obstetrics & Gynecology
DX: Z12.31 Encounter for screening mammogram for malignant neoplasm of breast (principal)
CPT/HCPCS: 77063; 77067

== ENCOUNTER 2024-09-20 17:29 | Emergency (ER) | payer BC, SELFPAY ==
--- NOTE | ~2024-09-20 | US_ITS ---
RIGHT LOWER EXTREMITY VENOUS ULTRASOUND Ordering provider: Christal Connell MD History: . leg pain . Comparison: None. FINDINGS: --COMMON FEMORAL: Patent and free of thrombus. Normal compressibility, phasic flow and augmentation. --PROXIMAL SUPERFICIAL FEMORAL: Patent and free of thrombus. Normal compressibility, phasic flow and augmentation. --DISTAL SUPERFICIAL FEMORAL: Patent and free of thrombus. Normal compressibility, phasic flow and au gmentation. --POPLITEAL: Patent and free of thrombus. Normal compressibility, phasic flow and augmentation. --POSTERIOR TIBIAL: Patent and free of thrombus. Normal compressibility, phasic flow and augmentation . IMPRESSION: Negative right lower extremity venous US. No deep vein thrombosis. Reviewed, dictated and finalized at location A.
--- OUTSIDE RECORDS SUMMARY | 2024-09-20 17:32 | XMS_ITS | Clinical Summary ---
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 10/07/2021 Active gabapentin (NEURONTIN) 300 mg capsule Take 300 mg by mouth 3 times daily. 10/24/2021 Active buPROPion HCL (WELLBUTRIN XL) 300 mg Extended Release 24 hour tablet Take 300 mg by mouth. 05/29/2022 Active atomoxetine (STRATTERA) 40 mg capsule Take 40 mg by mouth daily. Active diclofenac sodium (VOLTAREN) 50 mg Tablet, Delayed Release (E.C.) Take 50 mg by mouth 2 times daily. Active amLODIPine (NORVASC) 10 mg tablet Take 10 mg by mouth daily. Active metroNIDAZOLE (METROGEL) 0.75 % Gel Apply to affected area 2 times daily. Active hydroCHLOROthia zide 25 mg tablet Take 25 mg by mouth daily. Active modafiniL (PROVIGIL) 200 mg Tablet Take 200 mg by mouth daily. Active dicyclomine (BENTYL) 10 mg capsule Take 10 mg by mouth 4 times daily. Active famotidine (PEPCID) 40 mg tablet Take 40 mg by mouth 2 times daily. Active pantoprazole (PROTONIX) 40 mg Tablet, Delayed Release (E.C.) Take 40 mg by mouth daily. Active Active Problems No known active problems Encounters Date Type Department Care Team Description 09/09/2024 Orders Only [facility] Oncology and Hematology - [facility] [address] [place] [address] Dillan Monet MD 09/08/2024 Orders Only [facility] On[facility] Hematology - [id number] Dillan Monet MD 09/07/2024 Orders Only [facility] Oncology [facility] Hematology - [address] [place] [address] Dillan Monet MD 09/06/2024 Orders Only [facility] Oncology [facility] Hematology - [address] [place] [address] Dillan Monet MD 08/30/2024 External Device Data STL ABSTRACTION Provider, Abstract 08/04/2024 External Device Data STL ABSTRACTION Provider, Abstract 08/03/2024 External Device Data STL ABSTRACTION Provider, Abstract 08/02/2024 External Device Data STL ABSTRACTION Provider, Abstract 07/13/2024 Abstract [facility] On[facility] Hematology - [address] [place] [address] Dillan Monet MD 06/28/2024 External Device Data STL ABSTRACTION Provider, Abstract from Last 3 Months Family History Medical History Relation Name Comments No Known Problems Brother No Known Problems Child 1 No Known Problems Child 2 Colon Cancer Father Diabetes Mother Heart Disease Mother No Known Problems Sister 1 No Known Problems Sister 2 Relation Name Status Comments Brother Alive Child 1 Alive Child 2 Alive Father Mother Alive Sister 1 Alive Sister 2 Alive Social History Tobacco Use Types Packs/Day Years Used Date Smoking Tobacco: Never Tobacco Cessation:Counseling Given: Not Answered Alcohol Use Standard Drinks/Week Comments Yes 0 (1 standard drink = 0.6 oz pur e alcohol) socially Comments Unknown Sex and Gender Information Value Date Recorded Sex Assigned at Not on file Legal Sex Female 11:24 AM CDT Gender Identity Not on file Sexual Orientation Not on file Last Filed Vital Signs Vital Sign Reading Time Taken Comments Blood Pressure 132/99 01/07/2024 2:29 PM CDT Pulse 99 01/07/2024 2:23 PM CDT Temperature 36.6 C (97.8 F) 01/07/2024 2:23 PM CDT Respiratory Rate 17 01/07/2024 2:23 PM CDT Oxygen Saturation 96% 01/07/2024 2:23 PM CDT Inhaled Oxygen Concentration - - Weight 86.8 kg (191 lb 6.4 oz) 01/07/2024 2:23 P M CDT Height 154.9 cm (5' 1) 10/08/2023 2:43 PM CDT Body Mass Index 36.16 10/08/2023 2:43 PM CDT Plan of Treatment Health Maintenance Due Date Last Done Comments Pre-Diabetes and Diabetes Screening 1977 HEPATITIS B VACCINES (1 of 3 - 19+ 3-dose series) 1996 HPV/Cotest (21-29) 1998 CERVICAL CANCER SCREENING 2007 HPV/Cotest (30-65) 2007 PAP SMEAR 2007 BREAST CANCER SCREENING 04/04/2020 04/04/19 20, 04/04/2019, 05/21/2017, Additional history exists FIT-DNA Q 3 years 2022 FIT/FOBT Q 1 year 2022 Flex Sig/CT Colonography Q 5 years 2022 INFLUENZA VACCINE (#1) 2024 2, 02/01/2021, 12/30/2019, Additional history exists DTAP/TDAP/TD VACCINES (2 - T d or Tdap) 02/26/2031 02/26/2021 COLORECTAL SCREENING 03/12/2033 03/12/2023 Colorectal Cancer Screening 03/12/2033 Procedures Procedure Name Priority Date/Time Associated Diagnosis Comments KAPPA/LAMBDA LIGHT CHAINS Routine 2024 4:54 PM CDT PROTEIN ELECTROPHORESIS, CSF Routine 09/06/2024 1:07 PM CDT CBC WITH DIFFERENTIAL Routine 09/06/2024 12:58 PM CDT VITAMIN B12 LEVEL Routine 09/06/2024 11: 52 AM CDT IMMUNOGLOBULINS IGG IGA IGM Routine 09/06/2024 11:29 AM CDT COMPREHENSIVE METABOLIC PANEL Routine 09/06/2024 10:59 AM CDT from Last 3 Months Results * KAPPA/LAMBDA, FREE LIGHT CHAINS (09/06/2024 4:54 PM CDT) Blood us Dillan Monet MD CHEMISTRY ORDERABLES Final Resu lt * PROTEIN ELECTROPHORESIS, CSF (09/06/2024 1:07 PM CDT) Cerebrospinal fluid CEREBROSPINAL FLUID / Unknown Result Hebert Monet MD BODY FLUIDS AND STOOLS Final Re sult * CBC WITH DIFFERENTIAL (09/06/2024 12:58 PM CDT) Blood Result Hebert Monet MD HEMATOLOGY ORDERABLES Final Res ult * VITAMIN B12 LEVEL (09/06/2024 11:52 AM CDT) Blood Result Hebert Monet MD CHEMISTRY ORDERABLES Final Resu lt * IMMUNOGLOBULINS IGG IGA IGM (09/06/2024 11:29 AM CDT) Blood Result Hebert Monet MD CHEMISTRY ORDERABLES Final Resu lt * COMPREHENSIVE METABOLIC PANEL (09/06/2024 10:59 AM CDT) Blood us Dillan Monet MD CHEMISTRY ORDERABLES Final Resu lt from Last 3 Months
--- OUTSIDE RECORDS SUMMARY | 2024-09-20 17:32 | XMS_ITS | Data Portability ---
Author Organization [place] - [facility] [employer], Main Office Address [address] [place] [address] Care Team Providers Care Card Mounter Name Role Phone KATHERINE COOK Primary Care Provider KATHERINE COOK Referring Provider [phone] Assessment Encounter Date Assessment Date Assessment LastModified by Organization Details LastModified Time 08/27/2022 08/27/2022 Service was provided using telemedicine. Patient verbally consents to telemedicine services. The patient verbally consents to using virtual check-in and the consent is documented in the medical record prior to using the service. Patient is located at home. Provider is located at [facility]. Names and roles of all persons participating in telemedicine services include Katherine Cook (provider), Melissa Blakely (patient). The patient had a 5 minute TeleMedicine consultation via phone call to discuss the following: [email or web address] Not available 08/27/2022 11:57:02 Plan of Treatment Reminders Order Date Submit Date Provider Last Modified By Organization Details Last Modified Time Details Appointments Establis hed Patient 15 2024 02:45P M Kristal Mayers MD Not available Not available Not available Lab CMP, serum or plasma 2022 023 [email or web address] [facility] (Lab), [address] [place], [address], 02/19/2023 14:14:03 estrogen , total, serum 2022 023 [facility] (Lab), [address] [place], [address], 02/19/2023 14:14:04 progeste alon, serum 2022 023 [email or web address] [facility] (Lab), [address] [place], [address], 02/19/2023 14:14:04 testoste alon, free + total, serum [address] (Lab), [address] [place], [address], 02/19/2023 14:14:04 TSH, serum, reflex free T4 [address] (Lab), [address] [place], [address], 02/19/2023 14:14:04 Referral None recorded . Procedures colonosc opy screenin g (PROC) 2022 023 [email or web address] 56 Mike Spaulding MD, [address], [address], [place], [address], 03/06/2023 16:50:01 Surgeries None recorded . Imaging None recorded . Medication Orders pantopra zole 40 mg tablet,d elayed release 2024 025 [facility]14, [address], [place], [id number], 08/24/2024 16:03:56 famotidi ne 40 mg tablet 2024 025 [facility] #12506, [address], [place], [id number], 08/24/2024 16:03:53 pantopra zole 40 mg tablet,d elayed release 2023 024 [facility] #83701, [address], [place], [id number], 09/28/2023 14:47:11 famotidi ne 40 mg tablet 2023 024 [facility] #07641, [address], [place], [place], [id number], 09/28/2023 14:47:03 dicyclom ine 10 mg capsule 2022 023 [email or web address] [facility] #56086, [address], [place], [place], [id number], 08/24/2024 15:45:28 pantopra zole 40 mg tablet,d elayed release 2022 023 [facility] #20706, [address], [place], [place], [id number], 08/13/2022 15:48:38 famotidi ne 40 mg tablet 2022 023 [facility] #06437, [address], [place], [place], [id number], 08/13/2022 15:48:37 Patient TargetsNo targets recorded. Patient Instructions Encounter Date Encounter Id Patient Instructions Last Modified By Organization Details Last Modified Time 08/13/2022 [id number] PT WITH GERD , DOING WELL WITH PANTOPRAZOLE 40 MG /FAMOTIDINE 40 MG . XCONT SAME . PT WITH IBS-D. CONTINUE DICYCLOMINE 10 PO 3X DAILY NEEDED . PT HAS ELEVATED LFTs . ALL RESULTS ARE NOT AVAILABLE . SHE DOES NOT HAVE HEPATITIS . [email or web address] Not available 08/13/2022 15:45:42 08/27/2022 [id number] Due to the COVID-19 (Novel Coronavirus) pandemic, it is within this context (and with the understanding that this method of patient encounter is in the patient s best interest as well as the health and safety of other patients and the public) that telehealth is being provided for this patient encounter rather than a lnyl-bh-jzzs visit. This patient encounter is appropriate at this time. This patient has been advised of the potential risks and limitations of this mode of treatment (including, but not limited to, the absence of in-person examination) and has agreed to be treated in a remote fashion despite these risks. Any and all of the patient s/patient s family s questions on this issue have been answered, and I have made no promises or guarantees to the patient. The patient has also been advised to contact this office for worsening conditions or problems, and seek emergency medical treatment and/or call 911 if the patient deems either necessary. HPI and/or vitals, if listed, were provided by the patient. Due to the nature of telemedicine, the ability to do physical assessment was limited to what can be accomplished by patient directed telephone conversation based on instruction. Those limits are understood by the patient and myself. Impression is based on history, available information, and physical findings accomplished with telephone conversation. Chronic disease/problem list/medication list reviewed and updated where indicated. Discussed diagnosis, plan including risks, benefits and options of treatment. Advised to call for new, worsening or persistent symptoms. Level of patient risk was of moderate complexity due to the documented nature of presentation, the information assessment required and the nature of the development of an evaluation and treatment plan as documented. PMH, FHx, SHx, Surgical Hx, Quality Management review carried out and addressed as documented today as part of this visit. Medication list was reviewed and adjusted as indicated. Medication requiring a refill was addressed. Risk and benefits of any new medications were discussed and all questions answered. [email or web address] Not available 08/27/2022 11:59:22 09/28/2023 [id number] REFLUX DIET [email or web address] Not available 0 09/28/2023 14:45:26 PT WITH GERD . DOING WELL WITH PANTOPRAZOLE 40 MG /FAMOTIDINE 40 MG . CONTINUE SAME . F/U IN 6 MTHS . [email or web address] Not available 09/28/2023 14:45:58 08/24/2024 [id number] REFLUX DIET [email or web address] Not available 0 08/24/2024 15:52:07 PT WITH GERD DOI NG WELL WITH PANTOPRAZOLE 40 MG / FAMOTIDINE 40 MG . CONT SAME . PT WITH IBS-D NOW WITH CONSTIPATION . SX . D/C DICYCLOMINE FOR A WHILE . F/U IN 6 MTHS . [email or web address] Not available 08/24/2024 15:53:06 Reason for Referral None Reported. Results Created Date Observation Date Name Description Value Unit Range Abnormal Flag Note LastModifiedBy Organization Detail LastModifiedTime 09/12/1908/27/2022 sleep study , diagn ostic (PROC ) No observ ation record ed. [facility] [address], [place], [address], 09/12/2022 08:49:47 02/14/2002/13/2023 XR, chest No observ ation record ed. [email or web address] [facility] [address], [place], [address], 02/13/2023 08:39:40 07/07/19 24 07/06/2023 XR, chest , 2 view No observ ation record ed. [email or web address] [address], [place], [address], 09/27/2023 11:14:35 Result Notes None recorded. Problems Name Problem SNOMED Code Status Onset Date Resolution Date Notes Provider Name and Address Organization Details Recorded Time Bilateral trochanter ic bursitis 0826003349669 9109 Active 2021 Not Available [facility] 3 12:08:26 Gastroesop hageal reflux disease 362931345 Active Not Available [facility] 3 12:08:26 Renal impairment 791550411 Active Not Available [facility] 3 12:08:26 Raynaud's phenomenon 724290473 Active 2018 Not Available [facility] 3 12:08:26 Zamora's neuroma of right foot 4061565604209 08 Active 2018 Not Available [employer] 3 12:08:26 Hypertensi ve disorder 38969666 Active 2017 Not Available [facility] 3 12:08:26 Varicose veins of lower extremity 44015289 Active 2017 Not Available [facility] 3 12:08:26 COVID-19 796349813 Active 2020 Not Available [facility] 3 12:08:26 Chronic hypokalemi a 60328164 Active 2022 Not Available [facility] 3 12:08:26 Liver function tests outside reference range 853118017 Active 2022 Not Available [facility] 3 12:08:26 Irritable bowel syndrome with diarrhea 238458726 Active 2022 Not Available [facility] 3 12:08:26 Fatigue 83801590 Active 2022 Not Available [facility] 3 12:08:26 Constipati on 93868660 Active 2022 Not Available [facility] 3 12:08:26 Altered bowel function 03759055 Active 2022 Not Available [facility] 3 12:08:26 Liver enzymes level above reference range 110718790 Active 2022 Not Available [facility] 3 12:08:26 Gastroesop hageal reflux disease without esophagiti s 294361021 Active 2022 Not Available [facility] 3 12:08:26 Problem Notes None recorded. Procedures Surgical History Date Name Laterality Status Provider Name and Address Organization Details Recorded Time 03/13/20 23 colonoscopy completed Latosha Luna LPN [place] - [facility] [employer] [facility] 03/13/2023 14:58:09 Unlisted procedure shoulder completed Not Available [facility] 05/14/2022 16:43:57 Hernia Surgery completed Not Available [facility] 05/14/2022 16:43:57 Imaging Results None recorded. Procedure Notes None recorded. Medical Equipment None Reported. Allergies Allergen ID Allergen Name Allergen Category Reaction Reaction Severity Criticality Documentation Date Start Date Code Code System Note Provider Name and Address Organization Details Recorded Time 67192 latex environme nt,medica tion rash Not available Not available 05/14/2022 59432 91 RxNorm Not Available [facility] 3 16:45:48 Medications Name Sig Start Date Stop Date Status Note LastModified by Organization Details LastModified Time status covid-19/fl u a&b antigen tst TEST DIRECTED TODAY 08/24 completed Not Available Not Available Not Available losartan 50 mg tablet TAKE 1 TABLET BY MOUTH DAILY 08/24 completed Not Available Not Available Not Available cyclobenzap rine 10 mg tablet TK 1 T PO Q 8 H 12/12 completed Not Available Not Available Not Available nystatin 100,000 unit/mL oral suspension Take 5 mL 4 times a day by oral route. active Not Available Not Available No t Available prednisone 10 mg tablet TAKE 1 TABLET BY MOUTH THREE TIMES DAILY X 3 DAYS THEN 1 TABLET TWICE DAILY X 2 DAYS AND THEN 1 TABLET ONCE DAILY FOR 1 DAY 08/24 completed Not Available Not Available Not Available doxycycline hyclate 100 mg capsule TAKE 1 CAPSULE BY MOUTH TWICE DAILY 08/24 completed Not Available Not Available Not Available trazodone 50 mg tablet TAKE 1 TO 2 TABLETS BY MOUTH EVERY NIGHT AT BEDTIME NEEDED FOR INSOMNIA active Not Available Not Available No t Available lisinopril 20 mg-hydrochl orothiazide 12.5 mg tablet 04/08 completed Not Available Not Available Not Available ibuprofen 800 mg tablet TK 1 T PO Q 8 H PRN 06/21 completed Not Available Not Available Not Available acetazolami de ER 500 mg capsule,ext ended release TK 1 C PO BID 08/24 completed Not Available Not Available Not Available ofloxacin 0.3 % eye drops 08/24 completed Not Available Not Available Not Available fluconazole 150 mg tablet TAKE 1 TABLET BY MOUTH 1 TIME 08/24 completed Not Available Not Available Not Available benzonatate 200 mg capsule Take 1 capsule 3 times a day by oral route for 10 days. active Not Available Not Available No t Available hydrocodone 5 mg-acetamin ophen 325 mg tablet TK 1 T PO Q 6 H PRN P CONTROL 06/26 completed Not Available Not Available Not Available fluconazole 200 mg tablet 06/26 completed Not Available Not Available Not Available meloxicam 15 mg tablet TAKE 1 TABLET BY MOUTH DAILY 02/19 completed Not Available Not Available Not Available metronidazo le 0.75 % (37.5 mg/5 gram) vaginal gel INSERT 1 APPLICATO RFUL VAGINALLY EVERY DAY AT BEDTIME FOR 5 DAYS 08/24 completed Not Available Not Available Not Available famotidine 40 mg tablet TAKE 1 TABLET BY MOUTH EVERY DAY AT BEDTIME FOR REFLUX active Not Available Not Available No t Available prednisone 20 mg tablet Take 2 tablets every day by oral route for 5 days. active Not Available Not Available No t Available sertraline 100 mg tablet TAKE 2 TABLETS BY MOUTH EVERY DAY AT BEDTIME 08/24 completed Not Available Not Available Not Available prednisone 5 mg tablet TK 10 TS PO ON DAY 1 AND REDUCE DOSE BY 1 T QD FOR 10 DAYS active Not Available Not Available No t Available promethazin e 6.25 mg-codeine 10 mg/5 mL syrup 06/21 completed Not Available Not Available Not Available amlodipine 2.5 mg tablet TAKE 1 TABLET BY MOUTH DAILY 08/24 completed Not Available Not Available Not Available metronidazo le 500 mg tablet TAKE 1 TABLET BY MOUTH TWICE DAILY FOR 7 DAYS 08/24 completed Not Available Not Available Not Available phentermine 37.5 mg tablet TAKE 1 TABLET BY MOUTH EVERY DAY 08/24 completed Not Available Not Available Not Available tramadol 50 mg tablet TAKE 1 TABLET BY MOUTH EVERY 6 HOURS NEEDED 08/15 completed Not Available Not Available Not Available acetaminoph en 500 mg tablet TAKE 2 TABLETS BY MOUTH THREE TIMES DAILY NEEDED FOR PAIN active Not Available Not Available No t Available ketorolac 10 mg tablet TAKE 1 TABLET BY MOUTH EVERY 6 HOURS FOR 4 DAYS 08/24 completed Not Available Not Available Not Available prednisone 10 mg tablets in a dose pack Take 1 tab by mouth, 3 times a day for 3 daysTake 1 tab by mouth 2 times a day for 2 daysTake 1 tab by mouth once a day for 1 day 08/24 completed Not Available Not Available Not Available meloxicam 7.5 mg tablet TK 2 TS PO ONCE D 06/21 completed Not Available Not Available Not Available oxycodone-a cetaminophe n 5 mg-325 mg tablet TAKE 1 TO 2 TABLETS BY MOUTH EVERY 6 HOURS NEEDED FOR PAIN 08/24 completed Not Available Not Available Not Available amoxicillin 875 mg tablet 06/21 completed Not Available Not Available Not Available modafinil 200 mg tablet TAKE ONE TABLET BY MOUTH EVERY MORNING. TAKE ONCE DAILY BEFORE WORK SHIFT. active Not Available Not Available No t Available hyoscyamine ER 0.375 mg tablet,exte nded release,12 hr TAKE 1 TABLET BY MOUTH EVERY 12 HOURS NEEDED FOR 30 DAYS 08/24 completed Not Available Not Available Not Available Kenalog 10 mg/mL suspension for injection In office injection administe red by the provider 01/26 completed [facility]: [phone]- [phone] Not Available Not Available Not Available amlodipine 10 mg tablet TAKE 1 TABLET BY MOUTH EVERY DAY IN THE MORNING 08/24 completed Not Available Not Available Not Available cephalexin 500 mg capsule TAKE 1 CAPSULE BY MOUTH EVERY 12 HOURS FOR 7 DAYS 08/15 completed Not Available Not Available Not Available pantoprazol e 40 mg tablet,jodi yed release TAKE 1 TABLET BY MOUTH EVERY MORNING BEFORE BREAKFAST active Not Available Not Available No t Available triamcinolo ne acetonide 0.1 % topical ointment APPLY THIN LAYER TOPICALLY TO THE AFFECTED AREA TWICE DAILY FOR 14 DAYS active Not Available Not Available No t Available dexamethaso ne 4 mg tablet TAKE 1 TABLET BY MOUTH TWICE DAILY 12/12 completed Not Available Not Available Not Available diclofenac potassium 50 mg tablet TAKE 1 TABLET BY MOUTH TWICE DAILY 08/24 completed Not Available Not Available Not Available gabapentin 300 mg capsule TAKE 1 CAPSULE BY MOUTH THREE TIMES DAILY NEEDED active Not Available Not Available No t Available sertraline 25 mg tablet TAKE 1 TABLET BY MOUTH EVERY NIGHT AT BEDTIME FOR 1 WEEK THEN TAKE 2 TABLETS BY MOUTH EVERY NIGHT AT BEDTIME 08/24 completed Not Available Not Available Not Available hydrochloro thiazide 25 mg tablet TAKE 1 TABLET BY MOUTH EVERY DAY IN THE MORNING FOR HIGH BLOOD PRESSURE active Not Available Not Available No t Available diclofenac sodium 50 mg tablet,jodi yed release TAKE 1 TABLET BY MOUTH TWICE DAILY NEEDED FOR SHOULDER PAIN active Not Available Not Available No t Available gabapentin 100 mg capsule TAKE ONE CAPSULE BY MOUTH EVERY NIGHT AT BEDTIME active Not Available Not Available No t Available diazepam 10 mg tablet TK 1 T PO 06/26 completed Not Available Not Available Not Available methylpredn isolone 4 mg tablets in a dose pack FOLLOW PACKAGE DIRECTION S 01/26 completed Not Available Not Available Not Available albuterol sulfate HFA 90 mcg/actuati on aerosol inhaler INHALE 2 PUFFS BY MOUTH FOUR TIMES DAILY NEEDED FOR SHORTNESS OF BREATH OR WHEEZING 08/24 completed Not Available Not Available Not Available ondansetron 4 mg disintegrat ing tablet DISSOLVE 1 TABLET ON THE TONGUE EVERY 6 HOURS NEEDED FOR NAUSEA OR VOMITING 08/24 completed Not Available Not Available Not Available losartan 100 mg tablet TAKE 1 TABLET BY MOUTH EVERY DAY IN THE MORNING FOR HIGH BLOOD PRESSURE active Not Available Not Available No t Available fluticasone propionate 50 mcg/actuati on nasal spray,suspe nsion SHAKE LIQUID AND USE 1 SPRAY IN EACH NOSTRIL DAILY 08/24 completed Not Available Not Available Not Available dicyclomine 10 mg capsule TAKE 1 CAPSULE BY MOUTH THREE TIMES DAILY NEEDED 08/24 completed Not Available Not Available Not Available naproxen 500 mg tablet 09/27 completed Not Available Not Available Not Available medroxyprog esterone 150 mg/mL intramuscul ar syringe ADMINISTE R 1 ML IN THE MUSCLE EVERY 3 MONTHS active Not Available Not Available No t Available atomoxetine 25 mg capsule TAKE 1 CAPSULE BY MOUTH EVERY DAY IN THE MORNING FOR 7 DAYS 08/24 completed Not Available Not Available Not Available atomoxetine 40 mg capsule TAKE 1 CAPSULE BY MOUTH EVERY DAY IN THE MORNING 08/24 completed Not Available Not Available Not Available cyclobenzap rine 5 mg tablet Take 1 tablet 3 times a day by oral route as needed. active Not Available Not Available No t Available bupropion HCl XL 300 mg 24 hr tablet, extended release TAKE 1 TABLET BY MOUTH EVERY DAY IN THE MORNING 08/24 completed Not Available Not Available Not Available bupropion HCl XL 150 mg 24 hr tablet, extended release TAKE 1 TABLET BY MOUTH EVERY DAY 08/24 completed Not Available Not Available Not Available eszopiclone 2 mg tablet 08/24 completed Not Available Not Available Not Available lidocaine (PF) 10 mg/mL (1 %) injection solution In office injection administe red by the provider 12/06 completed [facility]: [phone]- [phone] Not Available Not Available Not Available lidocaine (PF) 5 mg/mL (0.5 %) injection solution Take 60 mg by injection route. 01/26 completed Not Available Not Available Not Available Estarylla 0.25 mg-0.035 mg tablet TK 1 T PO QD 06/21 completed Not Available Not Available Not Available potassium chloride ER 20 mEq tablet,exte nded release TAKE 2 TABLETS BY MOUTH EVERY DAY active Not Available Not Available No t Available Contrave 8 mg-90 mg tablet,exte nded release Start 1 tab Q am x 1 week; 1 tab BID x 1 week; 2 tabs QAM & 1 tab QPM x 1 week, then 2 tabs BID x 1 week active Not Available Not Available No t Available Eye Allergy Itch-Rednes s Relief 0.1 % drops 08/24 completed Not Available Not Available Not Available Paxlovid 300 mg (150 mg x 2)-100 mg tablets in a dose pack FOLLOW PACKAGE DIRECTION S 08/24 completed Not Available Not Available Not Available Vitals Date Recorded Body height Body mass index (BMI) Body weight Heart rate Oxygen saturation Oxygen saturation in Arterial blood by Pulse oximetry Systolic And Diastolic Provider Name and Address Organization Details Last Updated DateTime 3 154.94 cm 33.4 kg/m2 73613.8 5 g 86 /min 98 % 98 % 132/84 mm[Hg] Mk Rae Concetta [place] [facility] [employer] 3 15:30:58 Date Recorded Body height Body mass index (BMI) Body weight Heart rate Oxygen saturation Oxygen saturation in Arterial blood by Pulse oximetry Systolic And Diastolic Provider Name and Address Organization Details Last Updated DateTime 5 154.94 cm 38.7 kg/m2 90441.4 4 g 79 /min 98 % 98 % 142/92 mm[Hg] Mk Rae Conc[place] [facility] [employer] 5 15:43:49 Date Recorded Body height Body mass index (BMI) Body weight Heart rate Oxygen saturation Oxygen saturation in Arterial blood by Pulse oximetry Systolic And Diastolic Provider Name and Address Organization Details Last Updated DateTime 4 154.94 cm 38 kg/m2 70435.0 7 g 78 /min 97 % 97 % 164/96 mm[Hg] Mk Rae Concetta [employer] [facility] [employer] 4 14:17:40 Date Recorded Systolic And Diastolic Provider Name and Address Organization Details Last Updated DateTime 01/26/2023 142/98 mm[Hg] Casey Guerra [address] [place] [address], [address], [address], [employer] [facility] [employer] 01/26/2023 14:55:38 Date Recorded Body height Body mass index (BMI) Body weight Body temperature Heart rate Oxygen saturation Oxygen saturation in Arterial blood by Pulse oximetry Provider Name and Address Organization Details Last Updated DateTime 3 154.94 cm 34.6 kg/m2 49056.4 g 98.3 [degF] 92 /min 98 % 98 % Latosha Luna LPN [place] [facility] 3 14:22:49 Social History Question Answer Notes LastModified by Organizat ion Details LastModified Time Tobacco Smoking Status Never Smoker Not Available [facility] 05/14/2022 16:43:54 Do You Have An Advance Directive? No [id number] Information not available 05/14/2022 What Is Your Level Of Caffeine Consumption? Occasional [id number] Information not available 05/14/2022 How Much Tobacco Do You Chew? None [id number] Information not available 05/14/2022 What Is Your Code Status? DNR [id number] Information not available 05/14/2022 In The 14 Days Before Symptom Onset, Have You Had Close Contact With A Laboratory-confirm ed COVID-19 While That Case Was Ill? No [id number] Information not available 05/14/2022 In The 14 Days Before Symptom Onset, Have You Had Close Contact With A Person Who Is Under Investigation For COVID-19 While That Person Was Ill? No [id number] Information not available 05/14/2022 What Type Of Diet Are You Following? REGULAR [id number] Information not available 05/14/2022 Have There Been Any Changes To Your Family Or Social Situation? No [id number] Information not available 05/14/2022 Do You Have A Medical Power Of Housekeeper Supervisor? No [id number] Information not available 05/14/2022 Have You Ever Been Counseled For Unhealthy Alcohol Use? No [id number] Information not available 05/14/2022 What Is Your Relationship Status? Single [id number] Information not available 05/14/2022 Do You Use Your Seat Belt Or Car Seat Routinely? Yes [id number] Information not available 05/14/2022 Are You Passively Exposed To Smoke? No [id number] Information not available 05/14/2022 How Much Tobacco Do You Smoke? No [id number] Information not available 05/14/2022 Has Tobacco Cessation Counseling Been Provided? No [id number] Information not available 05/14/2022 Have You Recently Traveled Abroad? No [id number].[id number] Information not available 05/14/2022 Do You Have Any Dietary Restrictions? No MIGRATION.[id number] 4823 Information not available 05/14/2022 Sex: Unknown Functional Status Question Answer Note LastModified by Organizat ion Details LastModified Time Do you use any illicit or recreational drugs? No [id number] Information not available 05/14/2022 Do you or have you ever used any other forms of tobacco or nicotine? No MIGRATION.[id number] 026 Information not available 05/14/2022 What is your level of alcohol consumption? Occasional [id number] 026 Information not available 05/14/2022 What is your exercise level? None [id number] [id number] Information not available 05/14/2022 Mental Status Question Answer Note LastModified by Organizat ion Details LastModified Time Do you feel stressed (tense, restless, nervous, or anxious, or unable to sleep at night)? [id number] Information not available 05/14/2022 Family History Relationship Description Onset Age of this Age Resolved Age Notes LastModified by Organization Details LastModified Time Maternal Aunt Congestive heart failure 57 MIGRATION.263 [id number] Not available 05/14/2022 16:43:58 Maternal Aunt Malignant tumor of breast MIGRATION.581 [id number] Not available 05/14/2022 16:43:58 Maternal Aunt Diabetes mellitus MIGRATION.077 [id number] Not available 05/14/2022 16:43:58 Maternal Aunt Heart disease MIGRATION.545 [id number] Not available 05/14/2022 16:43:58 Maternal Aunt Hypertensive disorder MIGRATION.524 [id number] Not available 05/14/2022 16:43:58 Unspecified Relation Malignant tumor of breast Matern al cousin , moms neice MIGRATION.612 [id number] Not available 05/14/2022 16:43:58 Sister Chronic renal failure MIGRATION.587 [id number] Not available 05/14/2022 16:43:58 Mother Heart disease MIGRATION.872 [id number] Not available 05/14/2022 16:43:58 Mother Cerebrovascu lar accident MIGRATION.531 [id number] Not available 05/14/2022 16:43:58 Mother Hypertensive disorder MIGRATION.482 [id number] Not available 05/14/2022 16:43:58 Mother Diabetes mellitus MIGRATION.164 [id number] Not available 05/14/2022 16:43:58 Medical History Condition Response ANEMIA/BLOOD DISORDER Y HAVE YOU BEEN HOSPITALIZED OR SEEN IN [facility] ER IN THE PAST YEAR ? 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 N Obstetrics History GPAL:G 0 P 0 0 0 0 Immunizations Vaccine Type Date Status Note Provider Nam e and Address Organization Details Recorded Time COVID-19, mRNA, LNP-S, PF, 30 mcg/0.3 mL dose 03/17/2021 completed Not Available [facility] 3 12:08:26 COVID-19, mRNA, LNP-S, PF, 30 mcg/0.3 mL dose 02/14/2021 completed Not Available [facility] 3 12:08:26 Influenza, split virus, quadrivalent, PF 02/19/2022 completed Not Available [facility] 3 12:08:27 Tdap 02/26/2021 completed Not Available [facility] 08/19/2022 12:08:26 Influenza, split virus, quadrivalent, PF 02/01/2021 completed Not Available [facility] 3 12:08:27 Influenza, split virus, quadrivalent, PF 12/30/2019 completed Not Available [facility] 3 12:08:27 Influenza, split virus, quadrivalent, PF 12/25/2017 completed Not Available [facility] 3 12:08:27 Past Encounters Encounter ID Performer Location Encounter Start Date Encounter Closed Date Diagnosis/Indication Diagnosis SNOMED-CT Code Diagnosis ICD10 Code Diagnosis Note [id number] GLORIA Nogueira [facility] Primary [place] [address] [facility] [address] [place] [address] 08/24/2020 00:00:00 08/24/2020 15:20:09 [id number] Mel Vanegas MD [facility] Primary Care [place] [address] [facility] [address] [place] [address] 10/04/2020 00:00:00 10/04/2020 11:55:23 [id number] Mel Vanegas MD [facility] Primary Care [place] [address] [place] [address] 11/22/2020 00:00:00 11/23/2020 16:22:33 [id number] _ATHN_MIGR ATION_1 _ATHENA_M IGRATION_ DEFAULT_1 _1 , 12/12/2020 00:00:00 12/12/2020 11:05:17 [id number] Mel Vanegas MD [facility] Primary Care [place] [address] [place] [address] 02/01/2021 00:00:00 02/01/2021 14:32:50 [id number] Mel Vanegas MD [facility] Primary Care [place] [address] [place] [address] 02/26/2021 00:00:00 02/26/2021 19:57:39 [id number] Mel Vanegas MD [facility] Primary Care [place] [address] [place] [address] 03/26/2021 00:00:00 03/26/2021 18:17:53 [id number] Mel Vanegas MD [facility] Primary Care [place] [address] [place] [address] 05/22/2021 00:00:00 05/22/2021 14:02:46 [id number] CANDY Guerra [facility] Primary Care [place] [address] [place] [address] 05/27/2021 00:00:00 05/28/2021 08:45:55 [id number] GLORIA Nogueira [facility] Primary Care [place] [address] [place] [address] 06/25/2021 00:00:00 06/25/2021 19:57:18 [id number] GLOIRA Nogueira [facility] Primary Care [place] [address] [place] [address] 08/06/2021 00:00:00 08/06/2021 08:49:20 [id number] Otis Butterfield MD [facility]o [place] [address] [address] [place] [address] 08/15/2021 00:00:00 08/15/2021 12:30:46 [id number] Mel Vanegas MD [facility] Primary Care [place] [address] [facility] [address] [place] [address] 01/08/2022 00:00:00 01/08/2022 13:43:29 [id number] Mel Vanegas MD [facility] Primary Care [place] [address] [facility] [address] [place] [address] 02/19/2022 00:00:00 02/19/2022 14:16:52 [id number] GLORIA Nogueira [facility] Primary Care [place] [address] [facility] [address] [place] [address] 06/19/2022 14:02:49 06/19/2022 14:42:12 Chronic hypokalemia 30449123 E87.6 ChronicK 2.7 (05/15/22);R epeat labs today. Continue with potassium chlor 20meq daily in the meantime. Liver func tion tests outside reference range 362413888 R94.5 New problemAST /ALT wnl (12/2021); AST elevated during recent ER visit, likely d/t viral gastritis. Will check liver panel to evaluate for resolution . Irritable bowel syndrome with diarrhea 803468689 K58.0 ChronicNot well controlled .Encourage d pt to continue with hyoscamine as prescribed by GI. Encouraged pt to schedule f/u to discuss ongoing sx. [id number] Mel Vanegas MD [facility] Primary Care [place] [address] [facility] [address] [place] [address] 07/03/2022 15:08:10 07/03/2022 15:50:44 Chronic hypokalemia 90591122 E87.6 Chronic, stableK 2.7 (05/15/22); 3.5 (06/19/22)Co ntinue with potassium chlor 20meq daily. Liver func tion tests outside reference range 491203028 R94.[address]/ALT wnl (12/2021); ALT 71 (05/19/22); ALT 55 (06/19/22) T elevated during recent ER visit, likely d/t viral gastritis. Follow up with GI as discussed. Irritable bowel syndrome with diarrhea 515725384 K58.0 ChronicNot well controlled .Encourage d pt to continue with hyoscamine as prescribed by GI. Keep scheduled f/u with Dr Mayers on 07/09/22 to discuss ongoing sx. Fatigue 74228453 R53.83 ChronicPt states she is tired all the time despite getting good sleep. States she saw psychiatry recently and they ordered a sleep study. Pt concerned it may be denied. If denied through psych, will reorder home study. [id number] Kristal Mayers MD [facility] General Surgery [address] [facility] [address] [address] 07/09/2022 14:24:03 07/11/2022 12:28:32 Liver enzymes level above reference range 903826937 R74.01 Gastroesop hageal reflux disease without esophagitis 807190189 K21.9 CONT PANTOPRAZO LE /FAMOTIDIN E Irritable bowel syndrome with diarrhea 434393394 K58.0 CONT HYOSCYAMIN E [id number] Kristal Mayers MD [facility] General Surgery [address] [facility] [address] 08/13/2022 15:25:37 08/13/2022 15:49:14 Irritable bowel syndrome with diarrhea 002342659 K58.0 Gastroesop hageal reflux disease without esophagitis 397195770 K21.9 CONT PANTOPRAZO LE /FAMOTIDIN E [id number] GLORIA Nogueira [facility] Primary Care [facility] [address] [facility] [address] [place] [address] 08/27/2022 11:32:10 08/27/2022 17:54:37 Chronic hypokalemia 03873537 E87.6 Chronic, stableK 2.7 (05/15/22); 3.5 (06/19/22)Co ntinue with potassium chlor 20meq daily.Will plan to repeat labs next office visit. Liver func tion tests outside reference range 035877304 R94.5 ImprovedAS T/ALT wnl (12/2021); ALT 71 (05/19/22); ALT 55 (06/19/22) T elevated during recent ER visit, likely d/t viral gastritis. Follow up with GI as discussed. Reviewed GI note from Dr. Mayers (08/13/22): PT WITH GERD , DOING WELL WITH PANTOPRAZO LE 40 MG /FAMOTIDIN E 40 MG . XCONT SAME . PT WITH IBS-D. CONTINUE DICYCLOMIN E 10 PO 3X DAILY NEEDED . PT HAS ELEVATED LFTs . ALL RESULTS ARE NOT AVAILABLE . SHE DOES NOT HAVE HEPATITIS . Irritable bowel syndrome with diarrhea 284780278 K58.0 ChronicNot well controlled .Reviewed GI note from Dr. Mayers (08/13/22): PT WITH GERD , DOING WELL WITH PANTOPRAZO LE 40 MG /FAMOTIDIN E 40 MG . XCONT SAME . PT WITH IBS-D. CONTINUE DICYCLOMIN E 10 PO 3X DAILY NEEDED . PT HAS ELEVATED LFTs . ALL RESULTS ARE NOT AVAILABLE . SHE DOES NOT HAVE HEPATITIS . Fatigue 18510611 R53.83 ChronicPt states she is tired all the time despite getting good sleep. States she saw psychiatry recently and they ordered a sleep study. Pt states she is scheduled for in-lab study tonight at 8pm. [id number] Mel Vanegas MD [facility] [address] [place] [address] 01/26/2023 14:13:22 01/26/2023 16:39:38 Chronic hypokalemia 61524350 E87.6 Repeat labs today.Cont inue potassium chlor 20mew daily. Will titrate as necessary. 08/27/22: Chronic, stableK 2.7 (05/15/22); 3.5 (06/19/22)Co ntinue with potassium chlor 20meq daily.Will plan to repeat labs next office visit. Screening for malignant neoplasm of colon 579684646 Z12.11 Hypertensive disorder 38 304743 I10 Has been progressiv betty getting higher readings at home. Highest in 150s/100s. Denies chest pain/SOB.W ill check potassium. Continue to monitor at home.Will adjust medication as needed. She is scheduled to see cardiologi [facility] [id number] R53.83 Increased mood swings as well.Christina holden has recommende d hormone panel to be checked. Will also check thyroid. [id number] Kristal Mayers MD [facility] General Surgery [address] [facility] [address] [place] [address] 09/28/2023 14:15:49 09/28/2023 14:29:43 Irritable bowel syndrome with diarrhea 227307290 K58.0 Gastroesop hageal reflux disease without esophagitis 644883195 K21.9 CONT PANTOPRAZO LE /FAMOTIDIN E [id number] Kristal Mayers MD [facility] General Surgery [address] [facility] [facility] [address] [place] [address] 08/24/2024 15:39:23 08/24/2024 16:02:11 Irritable bowel syndrome with diarrhea 264466755 K58.0 Gastroesop hageal reflux disease 014785972 K21.9 K58.0 Health Concerns Section Related Observation LastModified by Organization Detai ls LastModified Time None Recorded Concern Status LastModified by Organization Details LastModified Time None Recorded Advance Directives Directive N: Payers Insurance Date Sequence Insurance Name Policy Number Policy Gallo Covered Member ID Gallo Member ID Guarantor Name 08/24/2024 1 [facility] ([facility]) [id number] Melissa Blakely [id number] Melissa Blakely Notes Date Note Type Note Provider Name and Address Organization Details Recorded Time 08/13/2022 text/html MELISSA WAS SEEN IN THE OFFICE TODAY FOR A F/U. PT HAS ELEVATED LFTs . LIVER MARKERS WERE ORDERED . THEY WERE NOT DONE . THEY HAVE TO BE REPEATED . HEP B S AG WAS NEGATIVE . PT IS DOING WELL WITH GERD RX. PANTOPRAZOLE 40 MG /FAMOTIDINE 40 MG. PT IBS-D IS ALSO DOING WELL WITH DICYCLOMINE . Kristal Mayers MD [address] [facility], [place], [address], [place] [facility] [employer] 08/13/2022 15:49:05 08/27/2022 text/html 08/27/22: 1. Pt presents for telehealth video/phone conference. Verbal consent witnessed by medical staff and Katherine Cook (provider). 2. Pt presents for 8 week f/u on GI referral. Pt states they were unable to discuss labs b/c Dr. Mayers never received the results and she had to repeat them.3. Pt states she is scheduled for her in-lab sleep study tonight. 07/03/22: 1. Pt in office for 2 week f/u on labs.2. Pt reports she has upcoming appt with Dr. Mayers for her IBS sx.3. Pt states she is tired all the time despite getting good sleep. States she saw psychiatry recently and they ordered a sleep study. Pt concerned it may be denied. 06/19/22: 1. Pt in office for f/u on low potassium levels. Pt states this time levels dropped b/c she had gastritis/stomach flu and had been vomiting and having diarrhea for more than 24hrs. States she went to ER once she passed the 24hr marquis b/c she felt so bad. Pt states ER gave her IV fluids and a potassium tablet, then sent her home. States she continues to take her normal potassium supplement.2. Pt states the ER provider was also concerned about her liver levels being high in 2018, 2020, and at that visit. Pt states she doesn't recall that being an issue.3. Pt states she continues to have alternating bouts of diarrhea/constipat ion despite medication prescribed by GI (Dr. Mayers). Pt states it's starting to be very overwhelming and embarrassing for her. States she hasn't seen GI in awhile. GLORIA Nogueira [address], [address], [place], [address], [place] - [facility] [employer] 08/27/2022 18:10:07 01/26/2023 text/html Pt. here to follow-up on low potassium, states she has been feeling more fatigued, muscle cramps. She has also noticed blood pressure has been higher. She would also like an order for colonoscopy. CANDY Guerra [address], [address], [place], [address], [facility] [employer] [facility] 01/26/2023 14:56:02 09/28/2023 text/html MELISSA WAS SEEN IN THE OFFICE TODAY FOR A F/U. PT HAS GERD . DOING WELL. SHE HAS GAINED 10 LBS . PT HAD LAP SEGUNDO LAST MONTH B/C OF GALLSTONES . Kristal Mayers MD [address] [facility] [address], [place], [address], [facility] [employer] [facility] 09/28/2023 14:46:56 08/24/2024 text/html MELISSA WAS SEEN IN THE OFFICE TODAY FOR A F/U. PT HAS IBS-D. SHE WAS RXED DICYCLOMINE . SHE D/DINAH IT B/C CONSTIPATION, sx started after lap segundo . . PT HAS GERD . SHE IS TAKING PANTOPRAZOLE 40 MG / FAMOTIDINE 40 MG . TODAY SHE REPORTS DOING WELL FROM THAT . Kristal Mayers MD [address], [address], [place], [address], [facility] [employer] [facility] 08/24/2024 16:04:17 OBGyn Episode No OBEpisode recorded.
--- OUTSIDE RECORDS SUMMARY | 2024-09-20 17:32 | XMS_ITS | Data Portability ---
[facility] Address [address] [place] [address] Care Team Providers Care Supplier Engineer Name Role Phone MELLY SANTOS Primary Care Provider Assessment No assessment recorded. Plan of Treatment Reminders Order Date Submit Date Provider Last Modified By Organization Details Last Modified Time Details Appointments None recorded. Lab CMP, serum or plasma 2024 025 RAJATKRISTIN Mae, 2022 [address], [address], [place], [address], 5 11:26:47 lipid panel, serum or plasma 2024 025 WORTON Tu, 2022 Fatim[address], [address], [place], [address], 5 11:26:46 CBC w/ auto diff 2024 025 RAJATKRISTIN Mae, 2022 Fatim[address]garry, [address], [place], [address], 5 11:26:49 TSH + free T4, serum 2024 025 WORTON Tu, 2022 Fatim[address] Mcgarry, [address], [place], [address], 5 11:26:45 HbA1c (hemoglobin A1c), blood 2024 025 RAJAT Labmimi, 2022 [address]gar[address], [address], [place], [address], 5 11:26:48 CMP, serum or plasma 2023 024 [facility], 2022 Fatim[address] Mcgarry, [address], [place], [address], 4 10:13:16 lipid panel, serum 2023 024 [facility], 2022 Fatim[address] Mcgarry, [address], [place], [address], 4 10:13:15 CBC w/ auto diff 2023 024 [facility], 2022 Fat[address] Mcgarry, [address], [place], [address], 4 10:13:17 TSH + free T4, serum 2023 024 [facility], 2022 [address]ry, [address], [place], [address], 4 10:13:14 HbA1c (hemoglobin A1c), blood 2023 024 [facility], 2022 Fatim[address] Mcgarry, [address], [place], [address], 4 10:13:17 Referral bariatric surgery referral 2023 024 [facility], [address], [address], [place], [address], 4 08:10:21 vein specialist referral 2023 024 [email or web address] [facility], [address], [address], [place], [address], 4 08:10:21 Procedures None recorded. Surgeries None recorded. Imaging electromyog yas + nerve conduction study - RIGHT LOWER EXT [address] ([facility]), [address], [place], [address], 4 12:06:20 Medication Orders losartan 100 mg tablet 2024 025 [id number], [address], [place], [place], [id number], 5 09:05:11 amlodipine 10 mg tablet 2024 025 [facility], [address], [place], [place], [id number], 5 09:05:12 triamcinolo ne acetonide 0.1 % topical ointment 2023 024 [facility], [address], [place], [place], [id number], 4 09:41:23 gabapentin 300 mg capsule 2023 024 [facility], [address], [place], [place], [id number], 4 10:00:53 hydrochloro thiazide 25 mg tablet 2023 024 [facility], [address], [place], [place], [id number], 4 17:21:05 amlodipine 10 mg tablet 2023 024 [facility], [address], [place], [place], [id number], 4 14:52:40 Patient TargetsNo targets recorded. Patient Instructions Encounter Date Encounter Id Patient Instructions Last Modified By Organization Details Last Modified Time 05/20/2023 [id number] A healthy lifestyle: care instructions [email or web address] Not available 05/20/2023 15:01:28 06/23/2023 [id number] A healthy lifestyle: care instructions [email or web address] Not available 06/24/2023 11:15:31 08/12/2023 [id number] A healthy lifestyle: care instructions [email or web address] Not available 08/12/2023 13:06:00 01/14/2024 [id number] A healthy lifestyle: care instructions [email or web address] Not available 01/14/2024 09:58:53 07/12/2024 [id number] A healthy lifestyle: care instructions [email or web address] Not available 07/12/2024 09:06:08 Reason for Referral Vein Specialist Referral for Pain due to varicose veins of lower extremity Referring Physician: Melly Santos [facility], Encounter Date: 06/23/2023 Bariatric Surgery Referral f or Obesity Referring Physician: Melly Santos [facility], Encounter Date: 06/23/2023 Results Created Date Observation Date Name Description Value Unit Range Abnormal Flag Note LastModifiedBy Organization Detail LastModifiedTime 05/20/19 24 05/21/2023 TSH+F REE T4 TSH 0.502 uIU/m L 0.450- 4.500 Not Available [facility] ([facility]) [address] [place], [address], 05/21/2023 10:13:14 05/20/19 24 05/21/2023 TSH+F REE T4 T4,free(dire ct) 1.08 NG/dL 0.82-1 .77 Not Available [facility] ([facility]) [address] [place], [address], 05/21/2023 10:13:14 05/20/19 24 05/21/2023 LIPID PANEL WITH LDL/H DL RATIO cholesterol, total 167 mg/dL 100-19 9 Not Available [facility] ([facility]) [address] [place], [address], 05/21/2023 10:13:15 05/20/19 24 05/21/2023 LIPID PANEL WITH LDL/H DL RATIO triglyceride s 157 mg/dL 0-149 above high normal Not Available [facility] ([facility]) [address] [place], [address], 05/21/2023 10:13:15 05/20/19 24 05/21/2023 LIPID PANEL WITH LDL/H DL RATIO HDL cholesterol 49 mg/dL >39 Not Available [facility] ([facility]) [address] [facility] [address], [place], [address], 05/21/2023 10:13:15 05/20/19 24 05/21/2023 LIPID PANEL WITH LDL/H DL RATIO VLDL cholesterol gurjit 27 mg/dL 5-40 Not Available [facility] ([facility]) [address] [facility] [address], [place], [address], 05/21/2023 10:13:15 05/20/19 24 05/21/2023 LIPID PANEL WITH LDL/H DL RATIO LDL chol calc (nih) 91 mg/dL 0-99 Not Available [facility] ([facility]) [address] [facility] [address], [place], [address], 05/21/2023 10:13:15 05/20/19 24 05/21/2023 LIPID PANEL WITH LDL/H DL RATIO LDL/HDL ratio 1.9 ratio 0.0-3. 2 LDL/H DL Ratio Men Women 1/2 Avg.R isk 1.0 1.5 Avg.R isk 3.6 3.2 2X Avg.R isk 6.2 5.0 3X Avg.R isk 8.0 6.1 Not Available [facility] ([facility]) [address] [place], [address], 05/21/2023 10:13:15 05/20/19 24 05/21/2023 COMP. METAB OLIC PANEL (14) glucose 88 mg/dL 70-99 Not Available [facility] ([facility]) [address] [place], [address], 05/21/2023 10:13:16 05/20/19 24 05/21/2023 COMP. METAB OLIC PANEL (14) BUN 16 mg/dL 6-24 Not Available [facility] ([facility]) [address] [facility], [place], [address], 05/21/2023 10:13:16 05/20/19 24 05/21/2023 COMP. METAB OLIC PANEL (14) creatinine 0.91 mg/dL 0.57-1 .00 Not Available [facility] ([facility]) [address] [facility] [address], [place], [address], 05/21/2023 10:13:16 05/20/19 24 05/21/2023 COMP. METAB OLIC PANEL (14) eGFR 79 mL/mi n/1.7 3 >59 Not Available [facility] ([facility]) [address] [facility] [address], [place], [address], 05/21/2023 10:13:16 05/20/19 24 05/21/2023 COMP. METAB OLIC PANEL (14) BUN/creatini ne ratio 18 9-23 Not Available [facility] ([facility]) [address] [facility] [address], [place], [address], 05/21/2023 10:13:16 05/20/19 24 05/21/2023 COMP. METAB OLIC PANEL (14) sodium 139 mmol/ L 134-14 4 Not Available [facility] ([facility]) [address] [facility] [address], [place], [address], 05/21/2023 10:13:16 05/20/19 24 05/21/2023 COMP. METAB OLIC PANEL (14) potassium 3.6 mmol/ L 3.5-5. 2 Not Available [facility] ([facility]) [address] [facility] [address], [place], [address], 05/21/2023 10:13:16 05/20/19 24 05/21/2023 COMP. METAB OLIC PANEL (14) chloride 103 mmol/ L 96-106 Not Available [facility] ([facility]) [address], [place], [address], 05/21/2023 10:13:16 05/20/19 24 05/21/2023 COMP. METAB OLIC PANEL (14) carbon dioxide, total 24 mmol/ L 20-29 Not Available [facility] ([facility]) [address], [place], [address], 05/21/2023 10:13:16 05/20/19 24 05/21/2023 COMP. METAB OLIC PANEL (14) calcium 9.3 mg/dL 8.7-10 .2 Not Available [facility] ([facility]) [address], [place], [address], 05/21/2023 10:13:16 05/20/19 24 05/21/2023 COMP. METAB OLIC PANEL (14) protein, total 7.1 g/dL 6.0-8. 5 Not Available [facility] ([facility]) [address] [place], [address], 05/21/2023 10:13:16 05/20/19 24 05/21/2023 COMP. METAB OLIC PANEL (14) albumin 4.0 g/dL 3.9-4. 9 Not Available [facility] ([facility]) [address] [place], [address], 05/21/2023 10:13:16 05/20/19 24 05/21/2023 COMP. METAB OLIC PANEL (14) globulin, total 3.1 g/dL 1.5-4. 5 Not Available [facility] ([facility]) [address] [place], [address], 05/21/2023 10:13:16 05/20/19 24 05/21/2023 COMP. METAB OLIC PANEL (14) A/G ratio 1.3 1.2-2. 2 Not Available [facility] ([facility]) [address] [facility], [place], [address], 05/21/2023 10:13:16 05/20/19 24 05/21/2023 COMP. METAB OLIC PANEL (14) bilirubin, total 0.4 mg/dL 0.0-1. 2 Not Available [facility] ([facility]) [address] [place], [address], 05/21/2023 10:13:16 05/20/19 24 05/21/2023 COMP. METAB OLIC PANEL (14) alkaline phosphatase 106 IU/L 44-121 Not Available [facility] ([facility]) [address] [facility] [address], [place], [address], 05/21/2023 10:13:16 05/20/19 24 05/21/2023 COMP. METAB OLIC PANEL (14) AST (SGOT) 16 IU/L 0-40 Not Available [facility] ([facility]) [address] [facility], [place], [address], 05/21/2023 10:13:16 05/20/19 24 05/21/2023 COMP. METAB OLIC PANEL (14) ALT (SGPT) 36 IU/L 0-32 above high normal Not Available [facility] ([facility]) [address] [facility], [place], [address], 05/21/2023 10:13:16 05/20/19 24 05/21/2023 HEMOG LOBIN A1C hemoglobin A1C 5.2 % 4.8-5. 6 Predi abete s: 5.7 - 6.4 Diabe shanel: >6.4 Glyce cheri contr ol for adult s with diabe shanel: <7.0 Not Available [facility] ([facility]) [address] [facility], [place], [address], 05/21/2023 10:13:17 05/20/19 24 05/21/2023 CBC WITH DIFFE RENTI AL/PL ATELE T WBC 9.5 x10e3 /uL 3.4-10 .8 Not Available [facility] ([facility]) [address] [facility] [address], [place], [address], 05/21/2023 10:13:17 05/20/19 24 05/21/2023 CBC WITH DIFFE RENTI AL/PL ATELE T RBC 4.58 x10e6 /uL 3.77-5 .28 Not Available [facility] ([facility]) [address] [facility], [place], [address], 05/21/2023 10:13:17 05/20/19 24 05/21/2023 CBC WITH DIFFE RENTI AL/PL ATELE T hemoglobin 13.5 g/dL 11.1-1 5.9 Not Available [facility] ([facility]) [address] [facility] [address], [place], [address], 05/21/2023 10:13:17 05/20/19 24 05/21/2023 CBC WITH DIFFE RENTI AL/PL ATELE T hematocrit 39.4 % 34.0-4 6.6 Not Available [facility] ([facility]) [address] [place], [address], 05/21/2023 10:13:17 05/20/19 24 05/21/2023 CBC WITH DIFFE RENTI AL/PL ATELE T MCV 86 fL 79-97 Not Available [facility] ([facility]) [address] [place], [address], 05/21/2023 10:13:17 05/20/19 24 05/21/2023 CBC WITH DIFFE RENTI AL/PL ATELE T MCH 29.5 pg 26.6-3 3.0 Not Available [facility] ([facility]) [address] [facility] [address], [place], [address], 05/21/2023 10:13:17 05/20/19 24 05/21/2023 CBC WITH DIFFE RENTI AL/PL ATELE T MCHC 34.3 g/dL 31.5-3 5.7 Not Available [facility] ([facility]) [address] [facility] [address], [place], [address], 05/21/2023 10:13:17 05/20/19 24 05/21/2023 CBC WITH DIFFE RENTI AL/PL ATELE T RDW 13.3 % 11.7-1 5.4 Not Available [facility] ([facility]) [address] [facility] [address], [place], [address], 05/21/2023 10:13:17 05/20/19 24 05/21/2023 CBC WITH DIFFE RENTI AL/PL ATELE T platelets 230 x10e3 /uL 150-45 0 Not Available [facility] ([facility]) [address] [facility] [address], [place], [address], 05/21/2023 10:13:17 05/20/19 24 05/21/2023 CBC WITH DIFFE RENTI AL/PL ATELE T neutrophils 66 % notest ab. Not Available [facility] ([facility]) [address] [facility], [place], [address], 05/21/2023 10:13:17 05/20/19 24 05/21/2023 CBC WITH DIFFE RENTI AL/PL ATELE T lymphs 23 % notest ab. Not Available [facility] ([facility]) [address] [facility], [place], [address], 05/21/2023 10:13:17 05/20/19 24 05/21/2023 CBC WITH DIFFE RENTI AL/PL ATELE T monocytes 5 % notest ab. Not Available [facility] ([facility]) [address] [facility], [place], [address], 05/21/2023 10:13:17 05/20/19 24 05/21/2023 CBC WITH DIFFE RENTI AL/PL ATELE T eos 5 % notest ab. Not Available [facility] ([facility]) [address] [place], [address], 05/21/2023 10:13:17 05/20/19 24 05/21/2023 CBC WITH DIFFE RENTI AL/PL ATELE T basos 1 % notest ab. Not Available [facility] ([facility]) [address] [facility], [place], [address], 05/21/2023 10:13:17 05/20/19 24 05/21/2023 CBC WITH DIFFE RENTI AL/PL ATELE T neutrophils (absolute) 6.4 x10e3 /uL 1.4-7. 0 Not Available [facility] ([facility]) [address] [facility] [address], [place], [address], 05/21/2023 10:13:17 05/20/19 24 05/21/2023 CBC WITH DIFFE RENTI AL/PL ATELE T lymphs (absolute) 2.2 x10e3 /uL 0.7-3. 1 Not Available [facility] ([facility]) [address] [facility] [address], [place], [address], 05/21/2023 10:13:17 05/20/19 24 05/21/2023 CBC WITH DIFFE RENTI AL/PL ATELE T monocytes(ab solute) 0.5 x10e3 /uL 0.1-0. 9 Not Available [facility] ([facility]) [address] [facility] [address], [place], [address], 05/21/2023 10:13:17 05/20/19 24 05/21/2023 CBC WITH DIFFE RENTI AL/PL ATELE T eos (absolute) 0.4 x10e3 /uL 0.0-0. 4 Not Available [facility] ([facility]) [address] [facility] [address], [place], [address], 05/21/2023 10:13:17 05/20/19 24 05/21/2023 CBC WITH DIFFE RENTI AL/PL ATELE T baso (absolute) 0.1 x10e3 /uL 0.0-0. 2 Not Available [facility] ([facility]) [address] [facility] [place], [address], 05/21/2023 10:13:17 05/20/19 24 05/21/2023 CBC WITH DIFFE RENTI AL/PL ATELE T immature granulocytes 0 % notest ab. Not Available [facility] ([facility]) [address] [facility] [address], [place], [address], 05/21/2023 10:13:17 05/20/19 24 05/21/2023 CBC WITH DIFFE RENTI AL/PL ATELE T immature grans (abs) 0.0 x10e3 /uL 0.0-0. 1 Not Available [facility] ([facility]) [address] [facility] [address], [place], [address], 05/21/2023 10:13:17 07/13/19 25 07/13/2024 TSH+F REE T4 TSH 1.620 uIU/m L 0.450- 4.500 Not Available [facility] ([facility]) [address] [place], [address], 07/13/2024 11:26:45 07/13/19 25 07/13/2024 TSH+F REE T4 T4,free(dire ct) 1.27 NG/dL 0.82-1 .77 Not Available [facility] ([facility]) [address] [place], [address], 07/13/2024 11:26:45 07/13/19 25 07/13/2024 LIPID PANEL WITH LDL/H DL RATIO cholesterol, total 161 mg/dL 100-19 9 Not Available [facility] ([facility]) [address] [place], [address], 07/13/2024 11:26:46 07/13/19 25 07/13/2024 LIPID PANEL WITH LDL/H DL RATIO triglyceride s 137 mg/dL 0-149 Not Available [facility] ([facility]) [address] [facility] [address], [place], [address], 07/13/2024 11:26:46 07/13/19 25 07/13/2024 LIPID PANEL WITH LDL/H DL RATIO HDL cholesterol 49 mg/dL >39 Not Available [facility] ([facility]) [address] [facility] [address], [place], [address], 07/13/2024 11:26:46 07/13/19 25 07/13/2024 LIPID PANEL WITH LDL/H DL RATIO VLDL cholesterol gurjit 24 mg/dL 5-40 Not Available [facility] ([facility]) [address] [place], [address], 07/13/2024 11:26:46 07/13/19 25 07/13/2024 LIPID PANEL WITH LDL/H DL RATIO LDL chol calc (nih) 88 mg/dL 0-99 Not Available [facility] ([facility]) [address] [facility] [address], [place], [address], 07/13/2024 11:26:46 07/13/19 25 07/13/2024 LIPID PANEL WITH LDL/H DL RATIO LDL/HDL ratio 1.8 ratio 0.0-3. 2 LDL/H DL Ratio Men Women 1/2 Avg.R isk 1.0 1.5 Avg.R isk 3.6 3.2 2X Avg.R isk 6.2 5.0 3X Avg.R isk 8.0 6.1 Not Available [facility] ([facility]) [address] [place], [address], 07/13/2024 11:26:46 07/13/19 25 07/13/2024 COMP. METAB OLIC PANEL (14) glucose 85 mg/dL 70-99 Not Available [facility] ([facility]) [address] [place], [address], 07/13/2024 11:26:47 07/13/19 25 07/13/2024 COMP. METAB OLIC PANEL (14) BUN 23 mg/dL 6-24 Not Available [facility] ([facility]) [address] [facility] [place], [address], 07/13/2024 11:26:47 07/13/19 25 07/13/2024 COMP. METAB OLIC PANEL (14) creatinine 0.93 mg/dL 0.57-1 .00 Not Available [facility] ([facility]) [address] [facility] [place], [address], 07/13/2024 11:26:47 07/13/19 25 07/13/2024 COMP. METAB OLIC PANEL (14) eGFR 76 mL/mi n/1.7 3 >59 Not Available [facility] ([facility]) [address] [facility] [address], [place], [address], 07/13/2024 11:26:47 07/13/19 25 07/13/2024 COMP. METAB OLIC PANEL (14) BUN/creatini ne ratio 25 9-23 above high normal Not Available [facility] ([facility]) [address] [facility] [place], [address], 07/13/2024 11:26:47 07/13/19 25 07/13/2024 COMP. METAB OLIC PANEL (14) sodium 139 mmol/ L 134-14 4 Not Available [facility] ([facility]) [address] [place], [address], 07/13/2024 11:26:47 07/13/19 25 07/13/2024 COMP. METAB OLIC PANEL (14) potassium 3.7 mmol/ L 3.5-5. 2 Not Available [facility] ([facility]) [address] [place], [address], 07/13/2024 11:26:47 07/13/19 25 07/13/2024 COMP. METAB OLIC PANEL (14) chloride 103 mmol/ L 96-106 Not Available [facility] ([facility]) [address] [facility] [address], [place], [address], 07/13/2024 11:26:47 07/13/19 25 07/13/2024 COMP. METAB OLIC PANEL (14) carbon dioxide, total 20 mmol/ L Not Available [facility] ([facility]) [address] [facility] [address], [place], [address], 07/13/2024 11:26:47 07/13/19 25 07/13/2024 COMP. METAB OLIC PANEL (14) calcium 9.8 mg/dL 8.7-10 .2 Not Available [facility] ([facility]) [address] [facility] [address], [place], [address], 07/13/2024 11:26:47 07/13/19 25 07/13/2024 COMP. METAB OLIC PANEL (14) protein, total 6.9 g/dL 6.0-8. 5 Not Available [facility] ([facility]) [address] [facility] [address], [place], [address], 07/13/2024 11:26:47 07/13/19 25 07/13/2024 COMP. METAB OLIC PANEL (14) albumin 4.1 g/dL 3.9-4. 9 Not Available [facility] ([facility]) [address] [facility] [address], [place], [address], 07/13/2024 11:26:47 07/13/19 25 07/13/2024 COMP. METAB OLIC PANEL (14) globulin, total 2.8 g/dL 1.5-4. 5 Not Available [facility] ([facility]) [address] [facility] [place], [address], 07/13/2024 11:26:47 07/13/19 25 07/13/2024 COMP. METAB OLIC PANEL (14) bilirubin, total 0.3 mg/dL 0.0-1. 2 Not Available [facility] ([facility]) [address] [facility] [address], [place], [address], 07/13/2024 11:26:47 07/13/19 25 07/13/2024 COMP. METAB OLIC PANEL (14) alkaline phosphatase 95 IU/L 44-121 Not Available [facility] ([facility]) [address] [facility] [address], [place], [address], 07/13/2024 11:26:47 07/13/19 25 07/13/2024 COMP. METAB OLIC PANEL (14) AST (SGOT) 18 IU/L 0-40 Not Available [facility] ([facility]) [address] [facility], [place], [address], 07/13/2024 11:26:47 07/13/19 25 07/13/2024 COMP. METAB OLIC PANEL (14) ALT (SGPT) 21 IU/L 0-32 Not Available [facility] ([facility]) [address] [facility], [place], [address], 07/13/2024 11:26:47 07/13/19 25 07/13/2024 HEMOG LOBIN A1C hemoglobin A1C 5.3 % 4.8-5. 6 Predi abete s: 5.7 - 6.4 Diabe shanel: >6.4 Glyce cehri contr ol for adult s with diabe shanel: <7.0 Not Available [facility] ([facility]) [address] [facility], [place], [address], 07/13/2024 11:26:48 07/13/19 25 07/13/2024 CBC WITH DIFFE RENTI AL/PL ATELE T WBC 11.9 x10e3 /uL 3.4-10 .8 above high normal Not Available [facility] ([facility]) [address] [facility] [address], [place], [address], 07/13/2024 11:26:49 07/13/19 25 07/13/2024 CBC WITH DIFFE RENTI AL/PL ATELE T RBC 4.47 x10e6 /uL 3.77-5 .28 Not Available [facility] ([facility]) [address] [facility], [place], [address], 07/13/2024 11:26:49 07/13/19 25 07/13/2024 CBC WITH DIFFE RENTI AL/PL ATELE T hemoglobin 12.7 g/dL 11.1-1 5.9 Not Available [facility] ([facility]) [address] [facility], [place], [address], 07/13/2024 11:26:49 07/13/19 25 07/13/2024 CBC WITH DIFFE RENTI AL/PL ATELE T hematocrit 39.7 % 34.0-4 6.6 Not Available [facility] ([facility]) [address] [facility] [address], [place], [address], 07/13/2024 11:26:49 07/13/19 25 07/13/2024 CBC WITH DIFFE RENTI AL/PL ATELE T MCV 89 fL 79-97 Not Available [facility] ([facility]) [address] [place], [address], 07/13/2024 11:26:49 07/13/19 25 07/13/2024 CBC WITH DIFFE RENTI AL/PL ATELE T MCH 28.4 pg 26.6-3 3.0 Not Available [facility] ([facility]) [address] [facility] [address], [place], [address], 07/13/2024 11:26:49 07/13/19 25 07/13/2024 CBC WITH DIFFE RENTI AL/PL ATELE T MCHC 32.0 g/dL 31.5-3 5.7 Not Available [facility] ([facility]) [address] [facility] [address], [place], [address], 07/13/2024 11:26:49 07/13/19 25 07/13/2024 CBC WITH DIFFE RENTI AL/PL ATELE T RDW 12.2 % 11.7-1 5.4 Not Available [facility] ([facility]) [address] [facility] [address], [place], [address], 07/13/2024 11:26:49 07/13/19 25 07/13/2024 CBC WITH DIFFE RENTI AL/PL ATELE T platelets 263 x10e3 /uL 150-45 0 Not Available [facility] ([facility]) [address] [facility] [address], [place], [address], 07/13/2024 11:26:49 07/13/19 25 07/13/2024 CBC WITH DIFFE RENTI AL/PL ATELE T neutrophils 64 % notest ab. Not Available [facility] ([facility]) [address] [facility] [address], [place], [address], 07/13/2024 11:26:49 07/13/19 25 07/13/2024 CBC WITH DIFFE RENTI AL/PL ATELE T lymphs 24 % notest ab. Not Available [facility] ([facility]) [address] [facility] [address], [place], [address], 07/13/2024 11:26:49 07/13/19 25 07/13/2024 CBC WITH DIFFE RENTI AL/PL ATELE T monocytes 6 % notest ab. Not Available [facility] ([facility]) [address] [facility] [address], [place], [address], 07/13/2024 11:26:49 07/13/19 25 07/13/2024 CBC WITH DIFFE RENTI AL/PL ATELE T eos 5 % notest ab. Not Available [facility] ([facility]) [address] [facility] [address], [place], [address], 07/13/2024 11:26:49 07/13/19 25 07/13/2024 CBC WITH DIFFE RENTI AL/PL ATELE T basos 1 % notest ab. Not Available [facility] ([facility]) [address] [facility] [address], [place], [address], 07/13/2024 11:26:49 07/13/19 25 07/13/2024 CBC WITH DIFFE RENTI AL/PL ATELE T neutrophils (absolute) 7.6 x10e3 /uL 1.4-7. 0 above high normal Not Available [facility] ([facility]) [address] [place], [address], 07/13/2024 11:26:49 07/13/19 25 07/13/2024 CBC WITH DIFFE RENTI AL/PL ATELE T lymphs (absolute) 2.8 x10e3 /uL 0.7-3. 1 Not Available [facility] ([facility]) [address] [place], [address], 07/13/2024 11:26:49 07/13/19 25 07/13/2024 CBC WITH DIFFE RENTI AL/PL ATELE T monocytes(ab solute) 0.7 x10e3 /uL 0.1-0. 9 Not Available [facility] ([facility]) [address] [place], [address], 07/13/2024 11:26:49 07/13/19 25 07/13/2024 CBC WITH DIFFE RENTI AL/PL ATELE T eos (absolute) 0.6 x10e3 /uL 0.0-0. 4 above high normal Not Available [facility] ([facility]) [address] [place], [address], 07/13/2024 11:26:49 07/13/19 25 07/13/2024 CBC WITH DIFFE RENTI AL/PL ATELE T baso (absolute) 0.1 x10e3 /uL 0.0-0. 2 Not Available [facility] ([facility]) [address] [place], [address], 07/13/2024 11:26:49 07/13/19 25 07/13/2024 CBC WITH DIFFE RENTI AL/PL ATELE T immature granulocytes 0 % notest ab. Not Available [facility] ([facility]) [address] [facility], [place], [address], 07/13/2024 11:26:49 07/13/19 25 07/13/2024 CBC WITH DIFFE RENTI AL/PL ATELE T immature grans (abs) 0.0 x10e3 /uL 0.0-0. 1 Not Available [facility] ([facility]) [address] [facility], [place], [address], 07/13/2024 11:26:49 08/06/19 24 08/06/2023 lab* No observ ation record ed. [facility] [address] [facility] [address], [place], [address], 08/12/2023 08:46:37 08/06/19 24 08/06/2023 lab* No observ ation record ed. [email or web address] [facility] [address], [place], [address], 08/12/2023 08:46:33 08/09/19 24 08/09/2023 , nino hooper No observ ation record ed. [address], [place], [address], 08/12/2023 08:31:28 08/12/19 24 07/15/2023 elect romyo gram + nerve condu ction study No observ ation record ed. [address], [place], [address], 08/13/2023 11:01:50 08/13/19 24 08/13/2023 lab* No observ ation record ed. [facility] [address], [place], [address], 08/18/2023 15:22:40 08/16/19 24 08/15/2023 MAMMO , scree anish, bilat eral No observ ation record ed. [facility] [address], [place], [address], 01/14/2024 10:01:12 09/16/19 24 09/16/2023 US, abdom en No observ ation record ed. [facility] [address], [place], [address], 09/17/2023 17:01:50 08/13/19 25 08/11/2024 XR, shoul sandeep, 2 or more view No observ ation record ed. [facility] [address], [place], [address], 08/16/2024 08:56:23 09/07/19 25 09/06/2024 MAMMO , scree anish, bilat eral No observ ation record ed. [facility] [address] [facility] [address], [place], [address], 09/06/2024 16:32:57 Result Notes None recorded. Problems Name Problem SNOMED Code Status Onset Date Resolution Date Notes Provider Name and Address Organization Details Recorded Time Hypertensiv e disorder 71985717 Active 2023 Sana Almanza [place] null, [place] [facility] 4 14:45:25 Attention deficit hyperactivi ty disorder 479790888 Active 2023 Sana Almanza [place], [place] [facility] 14:46:38 Anxiety 87735534 Active 2023 Sana Almanza [place], [place] [facility] 4 14:46:42 Hypokalemia 14915999 Active 2023 [facility] Attn: Rhoda tay,[address] [facility], [place], [address], [place] [facility] 4 12:07:26 Neuropathy of lower limb 120321802 Active 2023 [facility] Attn: Rhoda tay,[address] [facility], [place], [address], [place] [facility] 4 12:07:27 Pain of left shoulder joint 0415011680523 9109 Active 2023 [facility] Attn: Rhoda tay,[address] [place], [address], [place] [facility] 4 12:07:32 Adult attention deficit hyperactivi ty disorder 199598328 Active 2023 [facility] MA[facility] Attn: Rhoda tay,[address] [facility], [place], [address], [place] [facility] 4 12:07:33 Essential hypertensio n 19111385 Active 2023 CANDY MIAN Attn: Rhoda tay,[address] [place], [address], [place] [facility] 4 16:23:45 Obesity 625646457 Active 2023 [facility] MA[facility] Attn: Ryanmelissa tay,[address] [place], [address], [place] [facility] 4 12:07:39 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 [facility] Attn: Rhoda tay,[address] [place], [address], [place] [facility] 4 09:42:54 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 4 Active 2024 [facility] Attn: Ryanmelissa tay,[address] [place], [address], [place] [facility] 5 14:20:57 Cyst of ovary 24227079 Active LUANA Higuera- Attn: Accountmelissa g,[address] [facility], [place], [address], [place] [facility] 5 11:00:14 Dysmenorrhe a 412528966 Active Mirna Cancino [place] null, [place] [facility] 6 11:36:03 Urinary tract infectious disease 18732074 Active Mirna garcia [facility] 5 09:03:00 Problem Notes Documentation Provider Name and Address Organization Details Recorded Time Medical Record Request* : This document (1 of 1) was received from [email or web address] on 08/18/2023 through Direct Message along with the following message body content: Patient Name: MELISSA BLAKELY. Patient : 1975. Patient . Anne garcia [facility] 08/18/2023 09:06:24 Procedures Surgical History Date Name Laterality Status Provider Name and Address Organization Details Recorded Time 5 Date of Last Pap Smear completed Mirna Martinez [facility] 12/12/2014 10:30:52 1 Most Recent Mammogram completed Mirna Martinez [facility] 08/30/2014 14:31:20 8 Tubal Ligation completed Mirna Martinez [facility] 12/13/19 15 10:30:52 Imaging Results None recorded. Procedure Notes None recorded. Medical Equipment None Reported. Allergies No known drug allergies Medications Name Sig Start Date Stop Date Status Note LastModified by Organization Details LastModified Time status covid-19/fl u a&b antigen tst TEST DIRECTED TODAY 05/19 completed Not Available Not Available Not Available losartan 50 mg tablet Take 1 tablet every day by oral route in the morning for 90 days, for high blood pressure. 07/05 completed Not Available Not Available Not Available cyclobenzap rine 10 mg tablet 05/19 completed Not Available Not Available Not Available trazodone 50 mg tablet TAKE 1 TO 2 TABLETS BY MOUTH EVERY NIGHT AT BEDTIME NEEDED FOR INSOMNIA 01/13 completed Not Available Not Available Not Available lisinopril 20 mg-hydrochl orothiazide 12.5 mg tablet 05/19 completed Not Available Not Available Not Available azithromyci n 250 mg tablet 02/24 completed Not Available Not Available Not Available ibuprofen 800 mg tablet Take 1 tablet every 8 hours by oral route as needed. 05/19 completed Not Available Not Available Not Available acetazolami de ER 500 mg capsule,ext ended release 05/19 completed Not Available Not Available Not Available ofloxacin 0.3 % eye drops 01/13 completed Not Available Not Available Not Available benzonatate 200 mg capsule 05/19 completed Not Available Not Available Not Available Loestrin Fe 04/04 (28-Day) 1 mg-20 mcg (21)/75 mg (7) tablet Take 1 tablet every day by oral route. 05/19 completed Not Available Not Available Not Available hydrocodone 5 mg-acetamin ophen 325 mg tablet 05/19 completed Not Available Not Available Not Available metronidazo le 0.75 % (37.5 mg/5 gram) vaginal gel INSERT 1 APPLICATO RFUL VAGINALLY EVERY DAY AT BEDTIME FOR 5 DAYS 08/11 completed Not Available Not Available Not Available famotidine 40 mg tablet TAKE 1 TABLET BY MOUTH EVERY DAY AT BEDTIME FOR REFLUX active Not Available Not Available No t Available sertraline 100 mg tablet TAKE 2 TABLETS BY MOUTH EVERY DAY AT BEDTIME 01/13 completed Not Available Not Available Not Available promethazin e 6.25 mg-codeine 10 mg/5 mL syrup 05/19 completed Not Available Not Available Not Available amlodipine 2.5 mg tablet TAKE 1 TABLET BY MOUTH DAILY 05/19 completed Not Available Not Available Not Available metronidazo le 500 mg tablet TAKE 1 TABLET BY MOUTH TWICE DAILY FOR 7 DAYS 01/13 completed Not Available Not Available Not Available phentermine 37.5 mg tablet TAKE 1 TABLET BY MOUTH EVERY DAY 05/19 completed Not Available Not Available Not Available acetaminoph en 300 mg-codeine 30 mg tablet 02/24 completed Not Available Not Available Not Available ciprofloxac in 500 mg tablet Take 1 tablet twice a day by oral route for 3 days. 02/24 completed Not Available Not Available Not Available acetaminoph en 500 mg tablet TAKE 2 TABLETS BY MOUTH THREE TIMES DAILY NEEDED FOR PAIN 01/13 completed Not Available Not Available Not Available ketorolac 10 mg tablet TAKE 1 TABLET BY MOUTH EVERY 6 HOURS FOR 4 DAYS 01/13 completed Not Available Not Available Not Available meloxicam 7.5 mg tablet 05/19 completed Not Available Not Available Not Available oxycodone-a cetaminophe n 5 mg-325 mg tablet TAKE 1 TO 2 TABLETS BY MOUTH EVERY 6 HOURS NEEDED FOR PAIN 01/13 completed Not Available Not Available Not Available amoxicillin 875 mg tablet 05/19 completed Not Available Not Available Not Available famotidine 20 mg tablet 01/13 completed Not Available Not Available Not Available modafinil 200 mg tablet TAKE ONE TABLET BY MOUTH EVERY MORNING. TAKE ONCE DAILY BEFORE WORK SHIFT. active Not Available Not Available No t Available amlodipine 10 mg tablet Take 1 tablet every day by oral route in the morning for 90 days. 2024 active Not Available Not Available Not Avai lable cephalexin 500 mg capsule 02/24 completed Not Available Not Available Not Available pantoprazol e 40 mg tablet,jodi yed release TAKE 1 TABLET BY MOUTH EVERY MORNING BEFORE BREAKFAST active Not Available Not Available No t Available triamcinolo ne acetonide 0.1 % topical ointment APPLY THIN LAYER TOPICALLY TO THE AFFECTED AREA TWICE DAILY FOR 14 DAYS active Not Available Not Available No t Available diclofenac potassium 50 mg tablet TAKE 1 TABLET BY MOUTH TWICE DAILY 01/13 completed Not Available Not Available Not Available gabapentin 300 mg capsule TAKE 1 CAPSULE BY MOUTH THREE TIMES DAILY NEEDED active Not Available Not Available No t Available sertraline 25 mg tablet TAKE 1 TABLET BY MOUTH EVERY NIGHT AT BEDTIME FOR 1 WEEK THEN TAKE 2 TABLETS BY MOUTH EVERY NIGHT AT BEDTIME 01/13 completed Not Available Not Available Not Available hydrochloro thiazide 25 mg tablet TAKE 1 TABLET BY MOUTH EVERY DAY IN THE MORNING FOR HIGH BLOOD PRESSURE 2024 active Not Available Not Available Not Avai lable diclofenac sodium 50 mg tablet,jodi yed release TAKE 1 TABLET BY MOUTH TWICE DAILY NEEDED FOR SHOULDER PAIN active Not Available Not Available No t Available gabapentin 100 mg capsule 05/19 completed Not Available Not Available Not Available ibuprofen 600 mg tablet Take 1 tablet 3 times a day by oral route. 02/24 completed Not Available Not Available Not Available methylpredn isolone 4 mg tablets in a dose pack 05/19 completed Not Available Not Available Not Available albuterol sulfate HFA 90 mcg/actuati on aerosol inhaler INHALE 2 PUFFS BY MOUTH FOUR TIMES DAILY NEEDED FOR SHORTNESS OF BREATH OR WHEEZING active Not Available Not Available No t Available ondansetron 4 mg disintegrat ing tablet DISSOLVE 1 TABLET ON THE TONGUE EVERY 6 HOURS NEEDED FOR NAUSEA OR VOMITING 05/19 completed Not Available Not Available Not Available losartan 100 mg tablet Take 1 tablet every day by oral route in the morning for 90 days, for high blood pressure. 2024 active Not Available Not Available Not Avai lable fluticasone propionate 50 mcg/actuati on nasal spray,suspe nsion SHAKE LIQUID AND USE 1 SPRAY IN EACH NOSTRIL DAILY 05/19 completed Not Available Not Available Not Available dicyclomine 10 mg capsule TAKE 1 CAPSULE BY MOUTH THREE TIMES DAILY NEEDED 07/12 completed Not Available Not Available Not Available medroxyprog esterone 150 mg/mL intramuscul ar syringe ADMINISTE R 1 ML IN THE MUSCLE EVERY 3 MONTHS 01/13 completed Not Available Not Available Not Available atomoxetine 25 mg capsule TAKE 1 CAPSULE BY MOUTH EVERY DAY IN THE MORNING FOR 7 DAYS 05/19 completed Not Available Not Available Not Available atomoxetine 40 mg capsule TAKE 1 CAPSULE BY MOUTH EVERY DAY IN THE MORNING 07/12 completed Not Available Not Available Not Available bupropion HCl XL 300 mg 24 hr tablet, extended release TAKE 1 TABLET BY MOUTH EVERY DAY IN THE MORNING 01/13 completed Not Available Not Available Not Available eszopiclone 2 mg tablet TAKE 1 WITH YOU TO SLEEP LAB ON NIGHT OF SLEEP STUDY 05/19 completed Not Available Not Available Not Available Estarylla 0.25 mg-0.035 mg tablet Take 1 tablet every day by oral route. 05/19 completed Not Available Not Available Not Available potassium chloride ER 20 mEq tablet,exte nded release TAKE 2 TABLETS BY MOUTH EVERY DAY active Not Available Not Available No t Available Eye Allergy Itch-Rednes s Relief 0.1 % drops 01/13 completed Not Available Not Available Not Available Vitals Date Recorded Respiratory rate Provider Name a nd Address Organization Details Last Updated DateTime 05/20/2023 18 /min [facility] Attn: Accounting,[address] [place], [address], [place] [facility] 05/23/2023 12:05:55 Date Recorded Body height Body mass index (BMI) Body weight Oxygen saturation Oxygen saturation in Arterial blood by Pulse oximetry Heart rate Systolic And Diastolic Provider Name and Address Organization Details Last Updated DateTime 4 157.48 cm 35.5 kg/m2 64209.9 2 g 98 % 98 % 98 /min 163/104 mm[Hg] Sana Almanza MA [facility] 4 14:44:46 Date Recorded Body height Body mass index (BMI) Body weight Oxygen saturation Oxygen saturation in Arterial blood by Pulse oximetry Heart rate Respiratory rate Systolic And Diastolic Provider Name and Address Organization Details Last Updated DateTime 4 157.48 cm 36.1 kg/m2 44861.4 g 97 % 97 % 79 /min 16 /min 128/86 mm[Hg] Sana Almanza MA [facility] 4 15:37:45 Date Recorded Body height Body mass index (BMI) Body weight Oxygen saturation Oxygen saturation in Arterial blood by Pulse oximetry Heart rate Respiratory rate Systolic And Diastolic Provider Name and Address Organization Details Last Updated DateTime 5 157.48 cm 37.7 kg/m2 41338.0 3 g 96 % 96 % 70 /min 18 /min 158/97 mm[Hg] Sana Almanza MA [facility] 5 08:59:54 Date Recorded Systolic And Diastolic Provider Name and Address Organization Details Last Updated DateTime 08/12/2023 156/100 mm[Hg] C[facility] Attn: Accounting,[address] [place], [address], [facility] 08/12/2023 09:14:15 Date Recorded Body height Body mass index (BMI) Body weight Oxygen saturation Oxygen saturation in Arterial blood by Pulse oximetry Heart rate Respiratory rate Systolic And Diastolic Provider Name and Address Organization Details Last Updated DateTime 4 157.48 cm 37.3 kg/m2 02632.8 4 g 98 % 98 % 80 /min 16 /min 161/94 mm[Hg] Sana Almanza MA [facility] 4 08:57:25 Date Recorded Body height Body mass index (BMI) Body weight Oxygen saturation Oxygen saturation in Arterial blood by Pulse oximetry Heart rate Respiratory rate Systolic And Diastolic Provider Name and Address Organization Details Last Updated DateTime 4 157.48 cm 36.1 kg/m2 41155.4 g 98 % 98 % 73 /min 16 /min 147/89 mm[Hg] Emani Cancino MA [facility] 4 09:50:47 Social History Question Answer Notes LastModified by [employer] 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 07/12/2024 [email or web address] Information not available 07/12/2024 Has Tobacco Cessation Counseling Been Provided? Yes [email or web address] Information not available 05/20/2023 On What Date Was Tobacco Cessation Counseling Provided? 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 No [email or web address] Information not available 05/20/2023 What is your level of alcohol consumption? Occasional [email or web address] Information not available 01/14/2024 Mental Status None recorded. 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 Y Menses Monthly Y Date of Last Pap Smear 12/12/2014 Sexual Problems? N LMP Definite Obstetrics History GPAL:G 2 P 2 0 0 2 Type Value Full Term 2 Living 2 Total 2 Past Encounters Encounter ID Performer Location Encounter Start Date Encounter Closed Date Diagnosis/Indication Diagnosis SNOMED-CT Code Diagnosis ICD10 Code Diagnosis Note [id number] Odalis Cat [facility] [place] [facility] ([address] [facility] [address] [place] [address] 12/12/2014 09:53:44 12/12/2014 11:15:07 Cyst of ovary 67709839 Gynecologi c examination 94184910 Dysmenorrhea 770553559 [id number] Odalis Cat [facility] ([address] [facility] [place] [address] 02/25/2016 11:16:42 02/25/2016 13:11:47 Gynecologic examination 30052574 Z01.419 At increas ed risk of urinary tract infection 137350409 Z91.89 Dysmenorrhea 845713678 N 94.6 [id number] Odalis Cat [facility] [facility] ([address] [facility] [place] [address] 05/05/2016 16:16:00 05/06/2016 12:02:17 Suspected UTI (urinary tract infection) 515938638 Z11.2 [id number] DONALD [facility] ([address]) [address] [facility] [place] [address] 03/24/2017 11:38:48 03/25/2017 12:37:16 Gynecologic examination 79551254 Z01.419 Screening mammography 24 577746 Z12.31 [id number] DONALD [place]mer[place] 14 OB [address] [facility] [place] [address] 09/08/2017 15:54:37 09/11/2017 11:01:31 Contraception care management 592896302 Z30.9 Pain in pelvis 70534373 R10.2 [id number] DONALD [place]mer[place] 14 OB [address] [facility] [place] [address] 12/02/2017 09:20:28 12/03/2017 14:50:35 Pain in pelvis 35574902 R10.2 Gynecologi c examination 43306826 Z01.135 [id number] DONALD [place]mer[place] 14 OB [address] [facility] [place] [address] 12/28/2017 15:16:34 12/29/2017 10:06:54 At increased risk of urinary tract infection 211562415 Z91.89 Dyspareunia 75884548 N94 .10 [id number] Isaías wheeler MD [facility] [address] [place] [address] 05/20/2023 14:38:58 05/20/2023 15:15:04 Essential hypertension 44720302 I10 diagnosed in 2017BP at home 160s/110s the past monthBP in office 163/104on HCTZ 25, losartan 100, amlodipine 2.5increas e amlodipine from 2.5 to 10 mgadvised to check BP at home, goal BP <130/80, f/u with BP log in 1 wk Bronchitis 50683277 J40 uses albuterol PRN Adult atte ntion deficit hyperactivity disorder 762242973 F90.9 follows with psych- [place] on atomoxetin e, bupropion, sertraline 125, trazodone Pain of le ft shoulder joint 4033355675 8697544 M25.512 2019 and 2020- bicep tendon repair and rotator cuff repairtake s diclofenac follows with Ortho, Dr. Roque Danielson Contraception care 38629 5005 Z30.40 on depo by [employer] ASSIST[employer] Neuropathy of lower limb 959909582 G57.90 R legon gabapentin worse in cold weatherran dom numbness and tinglingun known etiologyor sandeep EMG Hypokalemia 39426222 E87 .6 on 40 mEq since 2019re-dano ck today Screening for malignant neoplasm of breast 478183553 Z12.39 scheduled in 2 wks Screening for malignant neoplasm of cervix 054279936 Z12.[address] Tena, [facility] Screening for malignant neoplasm of colon 313889436 Z12.11 20[facility] Obesity 868011545 E66.9 BMI 35.3discus sed increasing exercise and healthier food options, high protein, low fat dietroutin e labs Depression screening 171 839652 Z13.31 PHQ 6 Insomnia 322556650 G47.0 0 on trazodone [id number] Isaías wheeler MD [facility] [address] [place] [address] 06/23/2023 15:31:30 06/23/2023 15:48:50 Essential hypertension 50097911 I10 06/23/23: BP 128/86 todayBP at home 130s/80sre fill HCTZ 05/20/23:maggie gnosed in 2016BP at home 160s/110s the past monthBP in office 163/104on HCTZ 25, losartan 100, amlodipine 2.5increas e amlodipine from 2.5 to 10 mgadvised to check BP at home, goal BP <130/80, f/u with BP log in 1 wk Neuropathy of lower limb 478727131 G57.90 06/23/23: has EMG appt next week 05/20/23:R legon gabapentin worse in cold weatherran dom numbness and tinglingun known etiologyor sandeep EMG Screening for malignant neoplasm of breast 334696350 Z12.39 scheduled next month Depression screening 171 836175 Z13.31 PHQ 0 Pain due t o varicose veins of lower extremity 354450744 I83.819 c/o painful varicose veins to bilateral extremitie srequestin g referral Obesity 141095681 E66.9 BMI 36.1reques ting weight loss surgery referral Left side sciatica 21329 15553 59587 M54.32 intermitte ntlocated in L buttocks and moves down the back of her legcomes and goeshas not been taking gabapentin due to somnolence discussed PT, pt declined, states that she will do stretches on her own [id number] Isaías wheeler MD [facility] [address] [place] [address] 08/12/2023 08:49:59 08/12/2023 09:13:51 Benign intracranial hypertension 38502080 G93.2 OV 07/24/23- f/u pseudotumo r cerebri, no recurrence of papilledem a or HTN, rec'd to taper off diamox, Idiopathic intracrani al HTN- stable neuro ophthalmic eval, f/u in 1 yr Essential hypertension 29298917 I10 08/12/23: 161/94, 156/100too k meds right before appt 06/23/23: BP 128/86 todayBP at home 130s/80sre fill HCTZ 05/20/23:maggie gnosed in 2016BP at home 160s/110s the past monthBP in office 163/104on HCTZ 25, losartan 100, amlodipine 2.5increas e amlodipine from 2.5 to 10 mgadvised to check BP at home, goal BP <130/80, f/u with BP log in 1 wk 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 39595281 K80.20 went to ED 2x due to sharp, dull pain under breast bone that radiated to her backat ED 08/09/23- US RUQ- cholelithi asis, GB distension has appt with surgeon tomorrow Obesity 489610508 E66.9 BMI 37.3has appt 08/28/23 with Bariatric Surgery Depression screening 171 092788 Z13.31 PHQ 6 [id number] Isai Rogers MD [facility] [address] [place] [address] 01/14/2024 09:44:41 01/14/2024 10:04:55 Essential hypertension 22314899 I10 01/14/24: BP 147/89, took BP meds right before appt 08/12/23: 161/94, 156/100too k meds right before appt 06/23/23: BP 128/86 todayBP at home 130s/80sre fill HCTZ 05/20/23:maggie gnosed in 2017BP at home 160s/110s the past monthBP in office 163/104on HCTZ 25, losartan 100, amlodipine 2.5increas e amlodipine from 2.5 to 10 mgadvised to check BP at home, goal BP <130/80, f/u with BP log in 1 wk Fingertip eczema 7703445 08 L30.9 x3 wkswashes hands frequently at workrelief with triamcinol onePEx- xerosis to medial aspect of bilateral DIP joints of index fingersre- sent triamcinol one, add vaseline/a qauphor, apply band aid while sleeping at night Obesity 827681120 E66.9 BMI 36.1has appt 02/2024 with Bariatric SurgeryGLP injection $275discus sed increasing exercise and healthier food options, high protein, low fat diet Neuropathy of lower limb 002511223 G57.90 01/14/24: requesting refill gabapentin , EMG nl 06/23/23: has EMG appt next week 05/20/23:R legon gabapentin worse in cold weatherran dom numbness and tinglingun known etiologyor sandeep EMG Screening for malignant neoplasm of breast 431249040 Z12.39 nl 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 Monet- Hematology /Oncology OV- Labs from October 07 including flow cytometric analysis showed no evidence of leukemia and lymphoma. Serum tryptase normal at 8.6 WBC 9.0 hemoglobin 13.9 platelet 163,000 neutrophil s 66% lymphocyte 22% eosinophil s 5% with total eosinophil count of 500 vitamin B12 334 C-reactive protein less than 0.5 IgG 1816 IgM 323 potassium 3.1Eosinop hilia. This is reactive in nature. Flow cytometric analysis showed no leukemia. Serum tryptase is normal. PDGF RA mutation results are pending. Eosinophil remains slightly elevated. Will repeat level again in 4 weeksVitam in B12 deficiency . She will start vitamin B12 1 mg daily. Will repeat labs in 4 weeks.Elev ated IgG and IgM. Will check serum protein electropho resis with immunofixa tion and serum free light chain studies in 4 weeks.Lydia pheral neuropathy . Patient is on gabapentin . Depression screening 171 [id number] Z13.31 PHQ 3 [id number] Isai Rogers MD [facility] [address] [place] [address] 07/12/2024 08:51:01 07/12/2024 09:12:38 Essential hypertension [id number] I10 07/12/24: BP 158/97, took meds right before appt 01/14/24: BP 147/89, took BP meds right before appt 08/12/23: 161/94, 156/100too k meds right before appt 06/23/23: BP 128/86 todayBP at home 130s/80sre fill HCTZ 05/20/23:maggie gnosed in 2017BP at home 160s/110s the past monthBP in office 163/104on HCTZ 25, losartan 100, amlodipine 2.5increas e amlodipine from 2.5 to 10 mgadvised to check BP at home, goal BP <130/80, f/u with BP log in 1 wk Screening for malignant neoplasm of breast [id number] Z12.39 upcoming mammo appt Obese class II [id number] 1 57476 E66.812 BMI 36.1declin ed weight loss surgeryrou lisseth labs Organic sl eep-wake cycle disorder [id number] 9104 G47.20 on modafinilf ollows with pulm Gastroesop hageal reflux disease without esophagitis [id number] K21.9 on famotidine and pantoprazo le Depression screening 171 636779 Z13.31 PHQ 10did not discuss at visit Health Concerns Section Related Observation LastModified by Organization Detai ls LastModified Time None Recorded Concern Status LastModified by Organization Details LastModified Time None Recorded Advance Directives Directive None Recorded Payers Insurance Date Sequence Insurance Name Policy Number Policy Gallo Covered Member ID Gallo Member ID Guarantor Name 05/20/2023 1 [place] Melissa Blakely [id number] Melissa Blakely 05/20/2023 1 [facility] - OPEN ACCESS (POS) [id number] Melissa Blakely [id number] Melissa Blakely 05/20/2023 1 [place] [facility] [place] Melissa Blakely [id number] Melissa Blakely 03/24/2017 1 *SELF PAY* Emmett daleya Matthew Blakely 01/15/2017 SLIDING FEE SCHEDULE - DISCOUNT Melissa Blakely 07/12/2024 1 [place] [id number] Melissa Blakely [id number] Melissa Blakely 07/12/2024 1 [place] [id number] Melissa Blakely [id number] Melissa Blakely 05/20/2023 1 [place] [id number] Melissa Blakely [id number] Melissa Blakely Notes Date Note Type Note Provider Name and Address Organization Details Recorded Time 05/20/2023 text/html Pt presents to establish care as a new patient. H/o depression, ADHD, HTN, neuropathy to R leg. 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 She was diagnosed with HTN in 2017. States that her BP has been elevated at home for the past month, 160s/110s. Denies fever, chills, chest pain, SOB, n/v/d, abd pain, dizziness, weakness, or headaches. CANDY MAIN Attn: [address] , [place], [address], [facility] 05/23/2023 12:08:16 06/23/2023 text/html Pt presents for 1 mo f/u. C/o L buttocks numbness/tingling that moves down the back of her Left leg. States that it comes and goes and can go weeks w/o having pain. She has not been taking gabapentin due to somnolence. Pt has EMG appt next week and mammogram scheduled in 3 wks. CANDY MAIN Attn: Accounting[address] , [place], [address], [facility] 06/24/2023 16:35:30 08/12/2023 text/html Pt presents for ED f/u. Reports that she had 2 episodes in the past month of dull, sharp pain below my breast bone that moved around to my back, that caused her to go to ED. Most recent ED visit 3 days ago, diagnosed with gallstones and distended gallbladder. She has appt tomorrow with Dr. Wong, Surgeon, at [facility]. CANDY MAIN Attn: Accounting[address] [facility], [place], [address], [facility] 08/12/2023 13:08:59 01/14/2024 text/html Pt presents with skin rash to her index fingers x3 wks. States that she washes her hands a lot at work and both index fingers are super dry. She was applying old script of triamcinolone cream w/ improvement. CANDY MAIN Attn: Accounting[address] [facility], [place], [address], [facility] 01/15/2024 09:44:29 07/12/2024 text/html Patient presents for six-month follow. States that she does not want to have weight loss surgery. reports that she has a lot of upcoming medical appointments. CANDY MAIN Attn: Accounting[address] [facility], [place], [address], [facility] 07/12/2024 14:24:14 OBGyn Episode No OBEpisode recorded.
--- OUTSIDE RECORDS SUMMARY | 2024-09-20 17:32 | XMS_ITS | Clinical Summary ---
Author Organization [facility] Address [address] [place] [address] Care Team Providers Care Occupational Health Manager Name Role Phone Katherine Cook Avila NITRATING ACID MIXER-AUDITING CONTROL CLERK Primary Care Provider Source Comments [facility],non-[facility] Affiliates and Associated Physician Practices is amultiple site organization consisting of ambulatory clinics and hospital sitesin [place], [place], [place] and [place]. This disclosure is being madepursuant to the Care Everywhere program and may not contain all information available regarding this patient. Last updated 17.[facility] Allergies Active Allergy Reactions Criticality Noted Date Comments Latex Itching 02/02/2020 Medications * Be aware that medications may not be up to date on this document. Alwaysverify current medications with the patient. losartan (COZAAR) 50 MG tablet Take 50 mg by mouth once daily Active gabapentin (NEURONTIN) 100 MG capsule Take 300 mg by mouth 3 times daily Active hydroCHLOROthia zide (HYDRODIURIL) 25 MG tablet Take 25 mg by mouth once daily 06/22/2018 Active AMLODIPINE BESYLATE PO Take 1 tablet by mouth once daily Active MELOXICAM PO Take 15 mg by mouth once daily 01/02/2020 Active amLODIPine (NORVASC) 2.5 MG tablet Take 2.5 mg by mouth once daily 12/21/2019 Active cyclobenzaprine (FLEXERIL) 10 MG tablet Take 10 mg by mouth every 8 hours as needed 05/16/2019 Active diazePAM (VALIUM) 10 MG tablet Take 10 mg by mouth as needed for Anxiety 08/20/2018 Active diclofenac potassium (CATAFLAM) 50 MG tablet Take 50 mg by mouth 2 times daily Active gabapentin (NEURONTIN) 300 MG capsule Take 300 mg by mouth once daily 11/16/2019 Active HYDROcodone-noreen taminophen (NORCO) 5-325 MG tablet Take 1 tablet by mouth every 4 hours as needed for Pain 08/20/2018 Active metroNIDAZOLE (FLAGYL) 500 MG tablet Take 500 mg by mouth 2 times daily 05/30/2019 Active naproxen (NAPROSYN) 500 MG tablet Take 500 mg by mouth as needed for Pain 05/16/2019 Active oxyCODONE-aceta minophen (PERCOCET) 5-325 MG tablet Take 1 tablet by mouth every 6 hours as needed for Pain Active phentermine (ADIPEX-P) 37.5 MG tablet Take 37.5 mg by mouth once daily 12/30/2019 Active traMADol (ULTRAM) 50 MG tablet Take 50 mg by mouth every 8 hours as needed for Pain Active acetaZOLAMIDE ER 12hr (DIAMOX SEQUEL) 500 MG capsule Take 1 capsule by mouth 2 times daily 60 capsule 3 02/02/2020 Active Active Problems Problem Noted Date Diagnosed Date Raynaud's phenomenon 12/09/2018 Post-dural puncture headache 07/17/2018 Cyst of ovary 06/29/2018 Dysmenorrhea 06/29/2018 IIH (idiopathic intracranial hypertension) 06/29 Papilledema associated with increased intracrani al pressure 06/29/2018 Abnormal EKG 05/01/2017 Asymptomatic varicose veins of unspecified lower extremity 05/01/2017 Benign hypertension 05/01/2017 Immunizations Immunization Administration Dates Next Due INFLUENZA VACCINE 12/30/2019 INFLUENZA VACCINE, QUADR. (F LUZONE; FLULAVAL; FLUARIX; AFLURIA QUADRIVALENT; 6MO+), 0.5 ML (IIV4) 12/30/2019,12/25/2017 Family History Medical History Relation Name Comments Glaucoma Neg Hx Social History Tobacco Use Types Packs/Day Years Used Date Smoking Tobacco: Never Smokeless Tobacco: Never Alcohol Use Standard Drinks/Week Comments Yes 0 (1 standard drink = 0.6 oz pur e alcohol) socially Comments No Sex and Gender Information Value Date Recorded Sex Assigned at Not on file Legal Sex Female 3:14 PM CDT Gender Identity Not on file Sexual Orientation Not on file Last Filed Vital Signs Vital Sign Reading Time Taken Comments Blood Pressure 117/76 07/17/2018 2:00 AM CDT Pulse 77 07/17/2018 2:00 AM CDT Temperature 36.7 C (98 F) 07/16/2018 8:48 PM CDT Respiratory Rate 14 07/17/2018 2:00 AM CDT Oxygen Saturation 100% 07/17/2018 12: 27 AM CDT Inhaled Oxygen Concentration - - Weight 80.2 kg (176 lb 12.8 oz) 020 10:56 AM IMAGING CLERK Height 154.9 cm (5' 1) 02/02/2020 10:5 6 AM IMAGING CLERK Body Mass Index 33.41 02/02/2020 10:56 AM IMAGING CLERK Plan of Treatment Health Maintenance Due Date Last Done Comments COLOGUARD (AGES 45-75) - COL ON CA SCREENING 1977 COLON MONITORING 1977 COLONOSCOPY - COLON CA SCREENING 1977 CT COLONOGRAPHY - COLON CA SCREENING 1977 Colorectal Cancer Screening 1977 FIT - COLON CA SCREENING 1977 FLEX SIG - COLON CA SCREENING 1977 LIPID TESTING 1977 HIV SCREENING 1992 HEPATITIS C SCREENING 05/07/1995 DTAP/TDAP/TD VACCINES (1 - Tdap) 1996 HEPATITIS B VACCINE (1 of 3 - 19+ 3-dose series) 1996 PAP SMEAR 1998 MAMMOGRAM 04/04/2021 04/04/2019 SCREENING FOR DIABETES 07/16/2021 07/16/2018 COVID-19 VACCINE (1 - 2023-2 5 season) 2023 DEPRESSION SCREENING 03/16/2024 INFLUENZA VACCINE (#1) 2024 , 12/30/2019, 12/25/2017 ZOSTER VACCINE (1 of 2) 2027 HIB VACCINE Aged Out No longer eligi ble based on patient's age to complete this topic HPV VACCINE Aged Out No longer eligi ble based on patient's age to complete this topic MENINGOCOCCAL (Group B) VACCINE SHARED DECISION-MAKING Aged Out No longer eligible based on patient's age to complete this topic MENINGOCOCCAL GROUPS A/C/Y/W VACCINE Aged Out No longer eligible b ased on patient's age to complete this topic PNEUMOCOCCAL VACCINE Aged Out No long er eligible based on patient's age to complete this topic Procedures Procedure Name Priority Date/Time Associated Diagnosis Comments COMPREHENSIVE METABOLIC PANEL STAT 07/16/2018 9:59 PM CDT from Last 3 Months or Most Recently Relevant to Health Maintenance Results * (ABNORMAL) COMPREHENSIVE METABOLIC PANEL (07/16/2018 9:59 PM CDT) BUN 15 7 - 26 mg/dL 07/16/2018 10:29 PM [facility] Creatinine 1.0 0.6 - 1.2 mg/dL 07/16/2018 10:29 PM [facility] Sodium 139 136 - 145 mmol/L 07/16/2018 10:29 PM [facility] Potassium 3.1(L) 3.5 - 4.5 mmol/L 07/16/2018 10:29 PM [facility] Chloride 107 98 - 107 mmol/L 07/16/2018 10:29 PM [facility] CO2 22 22 - 29 mmol/L 07/16/2018 10:29 PM [facility] Glucose 93 70 - 115 mg/dL 07/16/2018 10:29 PM [facility] Calcium 10.0 8.4 - 10.2 mg/dL 07/16/2018 10:29 PM [facility] Protein Total 8.3 6.0 - 8.3 g/dL 07/16/2018 10:29 PM [facility] Albumin 3.9 3.4 - 5.0 g/dL 07/16/2018 10:29 PM [facility] Bilirubin Total 0.4 0.2 - 1.2 mg/dL 07/16/2018 10:29 PM [facility] Alkaline Phosphatase 72 40 - 150 Units/L 07/16/2018 10:29 PM [facility] ALT 53 0 - 55 Units/L 07/16/2018 10:29 PM [facility] AST 27 5 - 34 Units/L 07/16/2018 10:29 PM [facility] Anion Gap 13 8 - 18 07/16/2018 10:29 PM [facility] BUN/Creatinine Ratio 15 7 - 23 07/16/2018 10:29 PM CDT [facility] Osmolality Calculated 289 270 - 300 mOsm/kg 07/16/2018 10:29 PM [facility] Albumin/Globulin Ratio 0.9(L) 1.1 - 2.3 07/16/2018 10:29 PM CDT [facility] eGFR >60 >60 mL/min/1.7 3 m2 07/16/2018 10:29 PM T [facility] Blood BLOOD SPECIMEN / Unknown Venipuncture / Unknown 07/16/2018 9:59 PM CDT 07/16/2018 9:59 PM CDT Clara Joshua NITRATING ACID MIXER-AUDITING CONTROL CLERK LAB - CHEMISTRY ORDER AVTAR Final Result [facility] [address] [phone] from Last 3 Months or Most Recently Relevant to Health Maintenance Insurance ANTHEM * Guarantor: MELISSA DOMINGO Account Type Relation to Patient Date of Phone Billing Address Personal/Family [address] [facility] [address] [place] [phone] ANTHEM * Guarantor: MELISSA DOMINGO Account Type Relation to Patient Date of Phone Billing Address Personal/Family [address] [place] [address] ANTHEM * Guarantor: MELISSA DOMINGO Account Type Relation to Patient Date of Phone Billing Address Personal/Family [address] [place] [address] ANTHEM * Guarantor: MELISSA DOMINGO Account Type Relation to Patient Date of Phone Billing Address Personal/Family [address] [place] [address] ANTHEM * Guarantor: MELISSA DOMINGO Account Type Relation to Patient Date of Phone Billing Address Personal/Family [address] [place] [address] ANTHEM * Guarantor: MELISSA DOMINGO Account Type Relation to Patient Date of Phone Billing Address Personal/Family [address] [place] [address] ANTHEM Care Teams Occupational Health Manager Relationship Specialty Start Date End Date Katherine Cook, NITRATING ACID MIXER-AUDITING CONTROL CLERK [address] [place] [address] OLY Long [phone] PCP - General Nurse Practitioner Family 07/12/18
--- OUTSIDE RECORDS SUMMARY | 2024-09-20 17:32 | XMS_ITS | Data Portability ---
Author Organization [facility] [place] Address [address] [place] [address] [address] Care Team Providers Care Auto Damage Estimator Name Role Phone YANIRA MONTANAAMANDA Primary Care Provider Assessment No assessment recorded. Plan of Treatment Reminders Order Date Submit Date Provider Last Modified By Organization Details Last Modified Time Details Appointments None recorded. Lab None recorded. Referral None recorded. Procedures None recorded. Surgeries None recorded. Imaging US, transvagin al 2019 020 [email or web address] [place], [address], [address], [place], [address], 0 23:07:48 Medication Orders naproxen 500 mg tablet 2019 020 INTERFACE [id number], [address] [facility], [place], [place], [id number], 0 10:21:18 Patient TargetsNo targets recorded. Patient InstructionsNo instructions recorded. Reason for Referral None Reported. Results Created Date Observation Date Name Description Value Unit Range Abnormal Flag Note LastModifiedBy Organization Detail LastModifiedTime 09/05/19 20 09/05/2019 pregn sunny test, urine HCG negati ve Not Available [place] [address], [place], [address], 09/05/2019 10:41:11 09/05/19 20 09/07/2019 cultu re, urine specimen source Urine - Void Not Available [facility]) [address] [place], [place], [address], 09/07/2019 03:37:45 09/05/19 20 09/07/2019 cultu re, urine culture, urine See Below No growt h Not Available [facility] ([facility]) [address] [place], [place], [address], 09/07/2019 03:37:45 09/05/19 20 09/05/2019 urina lysis , dipst ick Leukocytes +1 leuk Not Available [place] [address], [place], [address], 09/05/2019 10:42:41 09/05/19 20 09/05/2019 urina lysis , dipst ick Nitrite normal Not Available [place] [address], [place], [address], 09/05/2019 10:42:41 09/05/19 20 09/05/2019 urina lysis , dipst ick Urobilinogen normal Not Available [facility] [address], [place], [address], 09/05/2019 10:42:41 09/05/19 20 09/05/2019 urina lysis , dipst ick Protein trace Not Available [place] [address], [place], [address], 09/05/2019 10:42:41 09/05/19 20 09/05/2019 urina lysis , dipst ick pH 7 Not Available [place] [address], [place], [address], 09/05/2019 10:42:41 09/05/19 20 09/05/2019 urina lysis , dipst ick Specific Jesse normal [facility] [address], [place], [address], 09/05/2019 10:42:41 09/05/19 20 09/05/2019 urina lysis , dipst ick Ketone nromal Not Available [place] [address], [place], [address], 09/05/2019 10:42:41 09/05/19 20 09/05/2019 urina lysis , dipst ick Bilirubin nromal Not Available [facility] [address], [place], [address], 09/05/2019 10:42:41 09/05/19 20 09/05/2019 urina lysis , dipst ick Glucose normal Not Available [place] [address], [place], [address], 09/05/2019 10:42:41 09/05/19 20 09/05/2019 urina lysis , dipst ick Appearance normal Not Available [facility] c[facility] [address], [place], [address], 09/05/2019 10:42:41 09/06/19 US, trans vagin al No observ ation record ed. [address], [place], [address], 09/14/2019 13:34:52 Result Notes None recorded. Problems Name Problem SNOMED Code Status Onset Date Resolution Date Notes Provider Name and Address Organization Details Recorded Time Pain in female genitalia Active 2018 Dysmenorrh ea, unspecifie d;Recorded Elsewhere: No Locatio n: [facility] rce: EHR Chroni c: N Practice ID: 0001 Billa ble Time: 09:45:00 AM Not Available [facility] 0 16:00:[address] Concept Active 2018 Encntr for general adult medical exam w/o abnormal findings;R ecorded Elsewhere: No Locatio n: [facility] rce: EHR Chroni c: N Practice ID: 0001 Billa ble Time: 09:45:00 AM Not Available [facility] 0 16:00:41 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, high risk on cervical specimen 927310859 Active 2018 Cervical high risk HPV DNA test positive;R ecorded Elsewhere: No Locatio n: [facility] rce: EHR Chroni c: N Practice ID: 0001 Billa ble Time: 09:45:00 AM Not Available [facility] 0 16:00:41 Acute vaginitis 89378492 Active 2019 Acute vaginitis; Recorded Elsewhere: No Locatio n: [facility] rce: EHR Chroni c: N Practice ID: 0001 Billa ble Time: 01:00:00 PM Not Available [facility] 0 16:00:41 Finding of pattern of menstrual cycle Active 2018 Other specified irregular menstruati on;Recorde d Elsewhere: No Locatio n: [facility] rce: EHR Practi ce ID: 0001 Billa ble Time: 08:30:00 AM Not Available [facility] 0 16:00:41 Finding of pattern of menstrual cycle 729900259 Active 2018 Excessive and frequent menstruati on with irregular cycle;Prac ana cristina ID: 0001 Not Available [facility] 0 16:00:41 Finding of menstrual bleeding Active 2018 Excessive and frequent menstruati on with regular cycle;Prac ana cristina ID: 0001 Not Available [facility] 0 16:00:[address] Concept Active 2018 Encntr for rn supplemental exam (general) (routine) w/o abn findings;P ractice ID: 0001 Not Available [facility] 0 16:00:41 Problem Notes None recorded. Procedures Surgical History Date Name Laterality Status Provider Name and Address Organization Details Recorded Time 01/14/20 19 Date of Last Pap Smear completed Esperanza Messer [facility] 09/05/2019 10:00:54 08/21/19 19 Hysteroscopy completed Esperanza Messer [facility] 09/05/2019 10:20:26 08/15/19 14 examinations - miscellaneous completed Esperanza Messer [facility] 09/05/2019 10:19:01 03/16/18 98 ligation of bilateral fallopian tubes completed [facility] 08/22/2019 17:02:33 03/16/18 76 hernia repair completed [facility] 08/22/2019 17:02:18 Imaging Results None recorded. Procedure Notes None recorded. Medical Equipment None Reported. Allergies No known drug allergies Medications Name Sig Start Date Stop Date Status Note LastModified by Organization Details LastModified Time losartan 50 mg tablet take 1 tablet by oral route every day active Prescrib ed Elsewher e: Yes Loca tion: [facility] odify By: [email or web address] Encount er DateTime : 07/07/19 09:00:00 AM Not Available Not Available Not Available cyclobenz aprine 10 mg tablet 09/07 completed Not Available Not Available Not Available acetazola mide ER 500 mg capsule,e xtended release Take 1 capsule twice a day by oral route. active Not Available Not Available No t Available hydrocodo ne 5 mg-acetam inophen 325 mg tablet take 1 tablet by oral route every 4 hours as needed for pain 09/07 completed Not Available Not Available Not Available fluconazo le 200 mg tablet take 1 tablet by oral route on days 1, 4, & 7. 09/07 completed Not Available Not Available Not Available gabapenti n 400 mg capsule take 1 capsule by oral route 3 times every day active Prescrib ed Elsewher e: Yes Loca tion: [facility] odify By: [email or web address] Encount er DateTime : 07/07/19 09:00:00 AM Not Available Not Available Not Available amlodipin e 2.5 mg tablet active Not Available Not Available Not Available metronida zole 500 mg tablet take 1 tablet by oral route every 12 hours 09/07 completed Not Available Not Available Not Available amlodipin e 5 mg tablet take 1 tablet by oral route every day active Prescrib ed Elsewher e: Yes Loca tion: [facility] M odify By: [email or web address] Encount er DateTime : 01/14/20 09:45:00 AM Not Available Not Available Not Available diclofena c potassium 50 mg tablet active Not Available Not Available Not Available gabapenti n 300 mg capsule active Not Available Not Available Not Available hydrochlo rothiazid e 25 mg tablet active Not Available Not Available Not Available gabapenti n 100 mg capsule 09/07 completed Not Available Not Available Not Available naproxen 500 mg tablet i po Q 12 hours prn cramping or pain active Not Available Not Available No t Available hydrochlo rothiazid e 09/07 completed Not Available Not Available Not Available amlodipin e 09/07 completed Not Available Not Available Not Available losartan 09/07 completed Not Available Not Available Not Available gabapenti n 09/07 completed Not Available Not Available Not Available hydrochlo rothiazid e 12.5 mg tablet take 1 tablet by oral route every day active Prescrib ed Elsewher e: Yes Loca tion: [facility] M odify By: [email or web address] Encount er DateTime : 07/07/19 09:00:00 AM Not Available Not Available Not Available Taytulla 2019 active 2 sample given lot [id number] A exp 11/2020 Not Available Not Available Not Available Vitals Date Recorded Body height Body mass index (BMI) Body weight Systolic And Diastolic Provider Name and Address Organization Details Last Updated DateTime 09/05/2019 154.94 cm 29.9 kg/m2 82182.59 g 103/70 mm[Hg] Esperanza Messer [facility] 09/05/2019 09:59:21 Date Recorded Body height Body mass index (BMI) Body weight Systolic And Diastolic Provider Name and Address Organization Details Last Updated DateTime 09/08/2019 154.94 cm 29.9 kg/m2 42663.59 g 108/73 mm[Hg] Esperanza Messer [facility] 09/08/2019 10:22:30 Social History Question Answer Notes LastModified by Organizat ion Details LastModified Time Tobacco Smoking Status Never Smoker Esperanza garcia [facility] 09/05/2019 10:14:52 What Was The Date Of Your Most Recent Tobacco Screening? 09/08/2019 [email or web address] Information not available 09/08/2019 How Much Tobacco Do You Smoke? No [email or web address] Information not available 09/05/2019 Sex: Unknown Functional Status Question Answer Note LastModified by Organizat ion Details LastModified Time What is your level of alcohol consumption? Occasional [email or web address] Information not available 09/05/2019 Do you or have you ever used smokeless tobacco? Never used smokeless tobacco [email or web address] Information not available 09/05/2019 Do you or have you ever used e-cigarettes or vape? Never used electronic cigarettes [email or web address] Information not available 09/05/2019 What is your exercise level? Occasional [email or web address] Information not available 09/05/2019 Mental Status None recorded. Family History Relationship Description Onset Age of this Age Resolved Age Notes LastModified by Organization Details LastModified Time Mother Diabetes mellitus [email or web address] Not available 08/21 16:59:54 Mother Hypertensive disorder [email or web address] Not available 08/21 17:00:20 Maternal Grandmother Diabetes mellitus [email or web address] Not available 08/21 16:59:54 Maternal Grandmother Hypertensive disorder [email or web address] Not available 08/21 17:00:20 Maternal Grandfather Diabetes mellitus [email or web address] Not available 08/21 16:59:54 Maternal Grandfather Hypertensive disorder [email or web address] Not available 08/21 17:00:20 Notes:Maternal grandfather: Hypertension, Diabetes mellitus Maternal grandmother: Hypertension, Diabetes mellitus Mother: Hypertension, Diabetes mellitus Medical History Condition Response Other Y Hypertension Y Gynecological History Statement/Question Response Date of Last Pap Smear 01/13/2019 Current Control Method Tubal Ligat ion Desired Control Method Ablation Date of LMP 07/19/2019 LMP Definite Obstetrics History GPAL:G 2 P 2 0 0 2 Type Value Full Term 2 Living 2 Total 2 Past Encounters Encounter ID Performer Location Encounter Start Date Encounter Closed Date Diagnosis/Indication Diagnosis SNOMED-CT Code Diagnosis ICD10 Code Diagnosis Note [id number] Mini Farnsworth MD [place] [address] [address] 09/05/2019 09:52:47 09/05/2019 11:02:46 Pain in pelvis 56847602 R10.2 Cramping only on cycle, usually about 2 days per month. Check pelvic U/S. Start naproxen Q12 hours when on cycle and see if that helps. Contracept ion: S/p BTL. Last annual 01/13/19 [id number] Rafael Lainez MD [place] [address] [address] 09/06/2019 16:35:40 09/06/2019 17:48:13 Pain in pelvis 81967237 R10.2 [id number] Mini Farnsworth MD [place] [address] [address] 09/08/2019 10:07:01 09/08/2019 11:35:44 Cyst of left ovary 6836176596 1946189 N83.202 Start Taytulla daily until repeat U/S in 6-8 weeks. She was given option to schedule with me or another provider in [facility]. She prefers to schedule future appointmen ts with me so she was scheduled for U/S and visit 10/30. Call if worsening symptoms or concerns prior to then Health Concerns Section Related Observation LastModified by Organization Detai ls LastModified Time None Recorded Concern Status LastModified by Organization Details LastModified Time None Recorded Advance Directives Directive None Recorded Payers Insurance Date Sequence Insurance Name Policy Number Policy Gallo Covered Member ID Gallo Member ID Guarantor Name 10/21/2019 1 [facility] ([facility]) [id number] Karen Blakely [id number] Karen Blakely Notes Date Note Type Note Provider Name and Address Organization Details Recorded Time 09/05/2019 text/html She has had much retail receiving 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 No pain other than on period. No discharge, urinary or bowel complaints, new partner. She takes Tylenol and lies down, sometimes uses Icy Hot. Tylenol doesn't help cramps. OLY Fry - [facility] 09/05/2019 10:22:29 09/08/2019 text/html c/p pain, mainly severe cramping on period, which is retail receiving clerk since having ablation. 1 cm fibroid and 22 mm [facility] 09/08/2019 11:13:48 OBGyn Episode Ob Episode Information Episode Created Date Number of Fetuses Patient Bloodtype Patient rh Status Prepregnancy Weight lbs Domestic Partner Domestic Partner Phone Father Name Grinding Machine Operator Portable Status 09/05/19 20 1 CLOSED Fetus Data First Name Last Name Admitted to NICU Weight (g) Sex Living Outcome Pediatric Complications Fetus ID Race Codes Race Delivery Type 2692.97 5704 M Full Term 2436 Vaginal Delivery Dereje Calculation Initial Dereje Date Initial Exam Date Initial Exam Provider Initial Ultrasound Date Last Menstrual Period Date Ultra Sound Weeks Gestation 0 Eighteen To Twenty Week Dereje Update Ultra Sound Date Fundal Height At Umbil Quickening Date Ultra Sound Latest Weeks Gestation Final Dereje Confirmed By Final Dereje Confirmed Date Final Dereje Date Ultra Sound Latest Days Gestation 0 0 Menstrual History Last Menstrual Date Menses Monthly On Bcp Conception Prior Menses Frequency Hcg Plus Date Menarche Onset Age Delivery Information Delivery Date Delivery Type Labor Anesthesia Weeks Gestation Incision Type Labor Labor Length Hrs Delivered By Post Complications Tubal Sterilization Discharge Date Comments 4 40 OBDULIO Discharge Information Feeding Method Contraceptive Method Maternal HG B and HCT Levels Ob Episode Information Episode Created Date Number of Fetuses Patient Bloodtype Patient rh Status Prepregnancy Weight lbs Domestic Partner Domestic Partner Phone Father Name Grinding Machine Operator Portable Status 09/05/19 20 1 CLOSED Fetus Data First Name Last Name Admitted to NICU Weight (g) Sex Living Outcome Pediatric Complications Fetus ID Race Codes Race Delivery Type 6123.49 2 M Full Term [id number] Vaginal Delivery Dereje Calculation Initial Dereje Date Initial Exam Date Initial Exam Provider Initial Ultrasound Date Last Menstrual Period Date Ultra Sound Weeks Gestation 0 Eighteen To Twenty Week Dereje Update Ultra Sound Date Fundal Height At Umbil Quickening Date Ultra Sound Latest Weeks Gestation Final Dereje Confirmed By Final Dereje Confirmed Date Final Dereje Date Ultra Sound Latest Days Gestation 0 0 Menstrual History Last Menstrual Date Menses Monthly On Bcp Conception Prior Menses Frequency Hcg Plus Date Menarche Onset Age Delivery Information Delivery Date Delivery Type Labor Anesthesia Weeks Gestation Incision Type Labor Labor Length Hrs Delivered By Post Complications Tubal Sterilization Discharge Date Comments 8 40 EDNA Discharge Information Feeding Method Contraceptive Method Maternal HG B and HCT Levels
[2024-09-20 17:40] VITALS: BP 169/102; PULSE 76; RESP 18; TEMP 36.4; O2SAT 99
--- NOTE | 2024-09-20 21:09 | ED_ITS ---
HPI - General Adult General Chief complaint: Extremity Injury, Lower Stated complaint: RLE pain/burning Time Seen by Provider: 09/20/24 21:01 History of Present Illness HPI narrative: Patient is a 49-year-old female who presents to the emergency department this evening complaining of right leg pain for the past month. States the pain is in her right upper thigh. States that today she felt as though her leg went numb on her secondary to the pain. Denies any focal weakness, any difficulty walking denies any additional symptoms or concerns. Denies any recent falls or trauma. Related Data Home Medications ?Medication ?Instructions ?Recorded ?Confirmed ?Last Taken ?Type hydrochlorothiazide 25 mg tablet 25 mg PO DAILY 11/07/19 08/27/24 10/27/20 09:00 History gabapentin 300 mg capsule 300 mg PO TID 11/29/19 08/27/24 10/27/20 09:00 History pantoprazole 40 mg tablet,delayed 40 mg PO DAILY 05/13/21 08/27/24 Unknown History release potassium chloride 20 mEq 20 meq PO DAILY 08/04/22 08/27/24 Unknown History tablet,extended release amlodipine 10 mg tablet 10 mg PO DAILY 05/25/23 08/27/24 Unknown History losartan 100 mg tablet 100 mg PO DAILY 05/25/23 08/27/24 Unknown History diclofenac potassium 50 mg tablet 50 mg PO DAILY 08/09/24 08/27/24 Unknown History Allergies Allergy/AdvReac Type Severity Reaction Status Date / Time latex Allergy Rash Verified 09/20/24 17:45 Review of Systems Review of Systems: All systems are reviewed and are negative unless stated otherwise in the HPI. REPLACED BY [facility] Past Medical History Medical History GERD (gastroesophageal reflux disease) Vaginal delivery x2 Goiter HSV (herpes simplex virus) infection Type 1 Obesity (BMI 30.0-34.9) Calcific tendinitis of left shoulder Hypertension Surgical History Surgical History History of laparoscopic cholecystectomy 08/26/23 History of endometrial ablation History of tubal ligation History of umbilical hernia repair As a small child History of repair of left rotator cuff (11/2019) x2 08/23/21 Family History Family History Mother Arthritis Hypertension Diabetes mellitus Cerebrovascular accident Father , at age 64 Colon cancer Social History Social History Social History: 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 She has 2 adult sons 1 of which live with her. She is a lifelong nonsmoker, she does not drink alcohol or use illicit substances. Smoking status: Never smoker Alcohol intake: current Alcohol use details: FEW TIMES/YEAR Substance use: never Substance use type: does not use Do You Feel Safe in your Home?: Yes Lack of Transportation: No Lack of Food: Never True Current Housing: I Have Housing Concerned About Future Housing: No Difficulty Paying Gas/Electric Bills: No Difficulty Paying for Meds: No Currently Unemployed: No Education: High School Diploma/GED Difficulty w/ Childcare or Family Care: No Living arrangements: with family Additional living arrangements comments: lives with son Occupation/Education: occupation Gender identity (if verbalized by the patient): Female Sexual Orientation (if Verbalized by the Patient): Straight or Heterosexual Spiritual care concerns: No Exam Narrative: General: Alert, awake, afebrile, in no acute distress. HEENT: PERRL, no rhinorrhea, no post nasal drip, oropharynx clear. Neck: Trachea midline, no JVD, no lymphadenopathy. Cardiovascular: Regular rate and rhythm, no murmurs, rubs or gallops, no peripheral edema. Respiratory: Clear to auscultation bilaterally, no tachypnea, no wheezing, no rhonchi, no rubs, no respiratory distress. Abdomen: Soft, nontender, nondistended, no rebound, no guarding, no peritoneal signs. Musculoskeletal: No joint swelling or deformity, normal muscle tone specifically in the right lower extremity no calf tenderness. Skin: No rashes or petechia, no signs of infection. Psychiatric: Alert and oriented, normal behavior and judgment for situation. Neurological: Alert and oriented to person, place, and time. Follows all commands. No focal deficits, speech is clear and fluent. Course Vital Signs Vital signs: Vital Signs Temperature 97.6 F 09/20/24 17:40 Pulse Rate 76 09/20/24 17:40 Respiratory Rate 18 09/20/24 17:40 Blood Pressure 169/102 H 09/20/24 17:40 Pulse Oximetry 99 09/20/24 17:40 Oxygen Delivery Room Air 09/20/24 17:40 Temperature 97.6 F 09/20/24 17:40 Pulse Rate 76 09/20/24 17:40 Respiratory Rate 18 09/20/24 17:40 Blood Pressure 169/102 H 09/20/24 17:40 Pulse Oximetry 99 09/20/24 17:40 Oxygen Delivery Room Air 09/20/24 17:40 Medical Decision Making MDM Narrative Medical decision making narrative: The patient was evaluated by myself in the emergency department. History is obtained from patient who is an independent historian and physical exam was performed. External medical records were reviewed at this time. Imaging studies obtained included right lower extremity venous duplex ultrasound which was independently interpreted by me revealing no acute process, which is pending final radiology interpretation. Differential diagnosis considerations include DVT, musculoskeletal strain. Comorbidities impacting this visit include none. I have evaluated and discussed social determinants of health with the patient that could potentially impact subsequent diagnosis and treatment plans. On repeat assessment of the patient, reevaluation revealed that the patient is doing well and is in no acute distress. Patient symptoms have improved since she arrived to our emergency department. Repeat vital signs were all reviewed and noted to be stable. Differential diagnosis and treatment plan were discussed with the patient at bedside. Patient agrees with discussion and after shared medical decision making agrees with discharge. All questions were answered to the patient's satisfaction. Patient will follow up with her PCP in 3-5 days. Patient was provided with strict return precautions and instructed to return to the emergency department if any new or worsening symptoms develop. The patient was discharged in stable condition. Vital Signs Vital Signs: Vital Signs Temperature 97.6 F 09/20/24 17:40 Pulse Rate 76 09/20/24 17:40 Respiratory Rate 18 09/20/24 17:40 Blood Pressure 169/102 H 09/20/24 17:40 Pulse Oximetry 99 09/20/24 17:40 Oxygen Delivery Room Air 09/20/24 17:40 Temperature 97.6 F 09/20/24 17:40 Pulse Rate 76 09/20/24 17:40 Respiratory Rate 18 09/20/24 17:40 Blood Pressure 169/102 H 09/20/24 17:40 Pulse Oximetry 99 09/20/24 17:40 Oxygen Delivery Room Air 09/20/24 17:40 Discharge Plan Discharge Clinical Impression: Chronic leg pain Patient Disposition: Home Condition: Stable Instructions: Antibiotic Form, Muscle Strain (DC), Leg Pain (ED) Additional Instructions: Please follow-up with your family doctor within the next 3-5 days. Use the prescribed muscle relaxers as needed as it may help with your symptoms. Return to the ED if any new or worsening symptoms develop. Patient Language: [place] Prescriptions: New methocarbamol 750 mg tablet 750 mg PO HS PRN (Reason: muscle pain) Qty: 10 0RF No Action diclofenac potassium 50 mg tablet 50 mg PO DAILY hydrochlorothiazide 25 mg tablet 25 mg PO DAILY amlodipine 10 mg tablet 10 mg PO DAILY losartan 100 mg tablet 100 mg PO DAILY modafinil 200 mg tablet 200 mg PO QAM 30 Days Qty: 30 2RF Rx Instructions: Take once daily before work shift. albuterol sulfate 90 mcg/actuation HFA aerosol inhaler 2 puff inhalation QID PRN (Reason: shortness of breath or wheezing) Qty: 8.5 0RF gabapentin 300 mg Capsule 300 mg PO TID pantoprazole 40 mg tablet,delayed release (DR/EC) 40 mg PO DAILY potassium chloride 20 mEq tablet extended release 20 meq PO DAILY Follow-up/Referrals: Enrico,CANDY Pickard [Primary Care Provider] - 3 Days Stand Alone Forms: Work/School Release IP Time of Disposition: 21:37
--- OUTSIDE RECORDS SUMMARY | 2024-09-20 21:10 | XMS_ITS | Clinical Summary ---
Author Organization [facility] Address [address] [place] [address] Care Team Providers Care Dubbing Machine Operator Name Role Phone Unavailable Primary Care Provider [...] Department Care Team Description 09/09/2024 Orders Only [facility] [address] [place] [address] Dillan Monet MD 09/08/2024 Orders Only [facility] [address] Dillan Monet MD 09/07/2024 Orders Only [facility] [address] [place] [address] Dillan Monet MD 09/06/2024 Orders Only [facility] [address] [place] [address] Dillan Monet MD 08/30/2024 External Device Data STL ABSTRACTION Provider, Abstract 08/04/2024 External Device Data STL ABSTRACTION Provider, Abstract 08/03/2024 External Device Data ST[facility] ABSTRACTION Provider, Abstract 08/02/2024 External Device Data STL ABSTRACTION Provider, Abstract 07/13/2024 Abstract [facility] [address] [place] [address] Dillan Monet MD 06/28/2024 External Device Data [...]
--- OUTSIDE RECORDS SUMMARY | 2024-09-20 21:10 | XMS_ITS | Clinical Summary ---
Author Organization [facility] [employer] Address [address] [place] [address] Care Team Providers Care Pickle Cutter Name Role Phone Katherine Cook Avila ROTARY DRIER OPERATOR-COMBINATION MAN Primary Care Provider Source Comments [facility]ates and Associated Physician Practices is amultiple site organization consisting of ambulatory clinics and hospital sitesin [place], [place], [place] and [place]. This disclosure is being madepursuant to the Care Everywhere program and may not contain all information available regarding this patient. Last updated 17.[facility] [employer] Allergies Active Allergy Reactions Criticality Noted Date [...] (176 lb 12.8 oz) 020 10:56 AM LOCAL COORDINATOR Height 154.9 cm (5' 1) 02/02/2020 10:5 6 AM LOCAL COORDINATOR Body Mass Index 33.41 02/02/2020 10:56 AM LOCAL COORDINATOR Plan of Treatment Health Maintenance Due Date [...] 7 - 26 mg/dL 07/16/2018 10:[address] [facility] Creatinine 1.0 0.6 - 1.2 mg/dL 07/16/2018 10:29 PM [facility] Sodium 139 136 - 145 mmol/L 07/16/2018 10:29 PM [facility] Potassium 3.1(L) 3.5 - 4.5 mmol/L 07/16/2018 10:29 PM [facility] Chloride 107 98 - 107 mmol/L 07/16/2018 10:[address] [facility] CO2 22 22 - 29 mmol/L 07/16/2018 10:[address] [facility] Glucose 93 70 - 115 mg/dL 07/16/2018 10:29 PM [facility] Calcium 10.0 8.4 - 10.2 mg/dL 07/16/2018 10:[address] [facility] Protein Total 8.3 6.0 - 8.3 g/dL 07/16/2018 10:[address] [facility] Albumin 3.9 3.4 - 5.0 g/dL 07/16/2018 10:[address] [facility] Bilirubin Total 0.4 0.2 - 1.2 mg/dL 07/16/2018 10:[address] [facility] Alkaline Phosphatase 72 40 - 150 Units/L 07/16/2018 10:[address] [facility] ALT 53 0 - 55 Units/L 07/16/2018 10:[address] [facility] AST 27 5 - 34 Units/L 07/16/2018 10:[address] [facility] Anion Gap 13 8 - 18 07/16/2018 10:[address] [facility] BUN/Creatinine Ratio 15 7 - 23 07/16/2018 10:29 PM CDT [facility] Osmolality Calculated 289 270 - 300 mOsm/kg 07/16/2018 10:29 PM T [facility] Albumin/Globulin Ratio 0.9(L) 1.1 - 2.3 07/16/2018 10:29 PM CDT [facility] eGFR >60 >60 mL/min/1.7 3 m2 07/16/2018 10:29 PM T [facility] Blood BLOOD SPECIMEN / Unknown Venipuncture / Unknown 07/16/2018 9:59 PM CDT 07/16/2018 9:59 PM CDT Clara Joshua ROTARY DRIER OPERATOR-COMBINATION MAN LAB - CHEMISTRY ORDER AVTAR Final Result [facility] [address] [phone] from Last 3 Months or Most Recently Relevant to Health Maintenance Insurance ANTHEM * Guarantor: MELISSA DOMINGO Account Type Relation to Patient Date of Phone Billing Address Personal/Family [address] [place] [phone] ANTHEM * Guarantor: MELISSA DOMINGO Account Type Relation to Patient Date of Phone Billing Address Personal/Family [address] [place] [address] ANTHEM * Guarantor: MELISSA DOMINGO Account Type Relation to Patient Date of Phone Billing Address Personal/Family [address] [place] [address] ANTHEM * Guarantor: MELISSA DOMINGO Account Type Relation to Patient Date of Phone Billing Address Personal/Family [address] [place] [address] ANTHEM * Guarantor: MELISSA DOMINGO Account Type Relation to Patient Date of Phone Billing Address Personal/Family [address] [place] [address] ANTHEM * Guarantor: MELISSA DOMINGO Account Type Relation to Patient Date of Phone Billing Address Personal/Family [address] [place] [address] ANTHEM Care Teams Pickle Cutter Relationship Specialty Start Date End Date Katherine Cook, ROTARY DRIER OPERATOR-COMBINATION MAN [address] [place] [address] O[place] Long [phone] PCP - General Nurse Practitioner Family 07/12/18
--- OUTSIDE RECORDS SUMMARY | 2024-09-20 21:10 | XMS_ITS | Clinical Summary ---
Author Organization [facility] Address [address] [place] [phone] Phone Care Team Providers Care Senior Client Advisor Name Role Phone Melly Weston Primary Care Provider [phone] Allergies Active Allergy Reactions Criticality Noted Date Comments Latex Itching Low 02/02/2020 Medications norgestimate-e thinyl estradioL (ORTHO-CYCLEN) 0.25-35 mg-mcg per tablet Estarylla 0.25 mg-35 mcg tablet Take 1 tablet every day by oral route. Active albuterol HFA (PROVENTIL HFA,VENTOLIN HFA,PROAIR HFA) 90 mcg/actuation inhaler 2 puffs every 4 (four) hours as needed 1 Active hydroCHLOROthi azide (HYDRODIURIL) 25 mg tablet Take by mouth 8 Active hyoscyamine ER (LEVBID) 0.375 mg 12 hr tablet TAKE 1 TABLET BY MOUTH EVERY 12 HOURS NEEDED FOR 30 DAYS 1 Active triamcinolone (KENALOG) 0.1 % ointment triamcinolone acetonide 0.1 % topical ointment Active potassium chloride ER 20 mEq CR tablet 2 Active medroxyPROGEST ERone 150 mg/mL injection ADMINISTER 1 ML IN THE MUSCLE EVERY 3 MON[address] (PROTONIX) 40 mg EC tablet Take 1 tablet (40 mg total) by mouth 2 Active amLODIPine (NORVASC) 2.5 mg tablet Take 1 tablet (2.5 mg total) by mouth daily 0 Active gabapentin (NEURONTIN) 300 mg capsule 2 Active buPROPion XL (WELLBUTRIN XL) 300 mg 24 hr tablet Take 1 tablet (300 mg total) by mouth every morning 3 Active diclofenac (CATAFLAM) 50 mg tablet Take 1 tablet (50 mg total) by mouth 2 (two) times a day 3 Active sertraline (ZOLOFT) 25 mg tablet TAKE 1 TABLET BY MOUTH EVERY NIGHT AT BEDTIME FOR 1 WEEK THEN TAKE 2 TABLETS BY MOUTH EVERY NIGHT AT BEDTIME 3 Active traZODone (DESYREL) 50 mg tablet 3 Active acetaZOLAMIDE ER (DIAMOX SEQUAL) 500 mg capsuleIndicat ions:Pseudotum or cerebri Take 1 capsule (500 mg total) by mouth daily Discontinue after 30 days. 30 capsule 3 Active losartan (COZAAR) 100 mg tablet TAKE 1 TABLET BY MOUTH EVERY DAY IN THE MORNING FOR HIGH BLOOD PRESSURE 4 Active Active Problems Problem Noted Date Diagnosed Date Papilledema 11/08/2021 IIH (idiopathic intracranial hypertension) 02/22 Assessment & Plan (02/22/2021 12:54 PM PHYSICIAN PRESIDENT): Karen Blakely is a 45 year old AA female previously followed with neuro-ophthalmology at [facility] (Dr. Bowens) for a diagnosis of IIH. She was first diagnosed in 2019 (with supportive findings including an elevated opening pressure on LP and unremarkable MRI (other than for signs of IIH) as well as bilateral disc edema), and has been treated with Diamox in the past. She is currently on 1000mg BID though has run out in the past week. She presents today largely asymptomatic - she has no headaches and very infrequent TVOs and pulsatile tinnitus. She does note recent weight gain of about 20 lbs in the last few months. On examination she demonstrates excellent central and color vision, full motility, and grossly full visual mak. Her optic nerves demonstrate gliotic changes bilaterally, but she does have trace residual edema in the left eye. Her OCT RNFL demonstrates mild thickening but her ganglion cell analysis is full. Her field testing demonstrates some scattered defects but we suspect this is secondary to poor testing. Overall her examination is very reassuring and her very mild degree of left disc edema does not place her at serious risk for vision loss at this time. We discussed her overall reassuring findings with residual swelling. She was very recently on 1000mg BID of Diamox, and we discussed options of stopping Diamox altogether given her missed doses versus reinitiation at a lower dose, which we favor given her recent high dose as well as her trace edema. Additionally, she has tolerated diamox well in the past. We also discussed that weight loss is weiner in management of IIH and she voices understanding of this. We will plan to restart Diamox at 500mg BID, work on weight loss, and have her return for follow-up with repeat HVF and OCT testing in 6 months. We discussed return precautions for any worsening vision or typical symptoms of IIH and she voiced understanding of this. Urinary tract infectious disease 02/22/2021 Raynaud's phenomenon 12/09/2018 Post-dural puncture headache 07/17/2018 Cyst of ovary 06/29/2018 Dysmenorrhea 06/29/2018 Benign hypertension 05/01/2017 Abnormal EKG 05/01/2017 Asymptomatic varicose veins of unspecified lower extremity 05/01/2017 Encounters Date Type Department Care Team Description 09/19/2024 Telephone [facility] Ophthalmology [facility] [place] [address] Jameson Velasquez MD No Show 08/10/2024 Telephone [facility] Ophthalmology [facility] [address] [phone] Jameson Velasquez MD 08/05/2024 Telephone [facility] Ophthalmology [facility] [address] [place] [phone] Jameson Velasquez MD 08/04/2024 Documentation [facility] Ophthalmology [address] [facility] [address] [place] [phone] Ana Caruso from Last 3 Months Surgical History Surgery Date Site/Laterality Comments CHOLECYSTECTOMY 08/2023 UMBILICAL HERNIA REPAIR Medical History Medical History Date Comments Anxiety 2021 Arthritis 2021 Cholelithiasis 07/12/23 Deep vein thrombosis (HCC) 2022 Depression 2022 GERD (gastroesophageal reflux disease) 2020 Hypertension 2016 Irritable bowel syndrome Obesity 2020 Osteoporosis 2021 Family History Medical History Relation Name Comments Asthma Brother Carmelo Learning disabilities Brother Carmelo Colon cancer Father Mayank Alcohol abuse Father's Sister Shantelle Diabetes Maternal Grandmother Deb Heart disease Maternal Grandmother Deb Arthritis Mother Graciela Cataracts Mother Graciela Diabetes Mother Graciela Cancer Mother's Sister Abida Sleep apnea Mother's Sister Abida COPD Paternal Grandfather Bahman Blakely Depression Sister Karen Obesity Sister Karen Relation Name Status Comments Brother Eldra Father Mayank Father's Sister Shantelle Maternal Grandmother Deb Mother Graciela Mother's Sister Abida Paternal Grandfather Bahman Blakely Sister Karen Social History Tobacco Use Types Packs/Day Years Used Date Smoking Tobacco: Never Passive Smoke Exposure: Never Smokeless Tobacco: Never Tobacco Cessation:Counseling Given: Not Answered AUDIT-C Answer Date Recorded Q1: How often do you have a drink containing alc ohol? Monthly or less 02/22/2024 Q2: How many drinks containi ng alcohol do you have on a typical day when you are drinking? 1 or 2 02/22/2024 Q3: How often do you have si x or more drinks on one occasion? Never 02/22/2024 Comments No Sex and Gender Information Value Date Recorded Sex Assigned at Not on file Legal Sex Female 3:15 PM PHYSICIAN PRESIDENT Gender Identity Not on file Sexual Orientation Not on file Obstetrics History Para Term AB IAB SAB Ectopic Multiple Livin g Live Births 2 2 2 Date Outcome GA Total Labor Labor/2nd/3rd Weight Sex Type Anes PTL Chely A1 A5 Name Clin Term Term Last Filed Vital Signs Vital Sign Reading Time Taken Comments Blood Pressure 169/98 02/22/2024 9:50 AM PHYSICIAN PRESIDENT Pulse 72 02/22/2024 9:50 AM PHYSICIAN PRESIDENT Temperature - - Respiratory Rate - - Oxygen Saturation 98% 02/22/2024 9:50 AM PHYSICIAN PRESIDENT Inhaled Oxygen Concentration - - Weight 91.1 kg (200 lb 12.8 oz) 02/22/2024 9:50 AM PHYSICIAN PRESIDENT Height 159.5 cm (5' 2.8) 02/22/2024 9:50 AM PHYSICIAN PRESIDENT Body Mass Index 35.8 02/22/2024 9:50 AM PHYSICIAN PRESIDENT Plan of Treatment Health Maintenance Due Date Last Done Comments Colon Cancer Screening-Colonoscopy 1977 Depression Screening 1977 Hepatitis C Screening 1977 Hepatitis B Screening 1995 Regular Well Visit/Exam 18-64 1995 Breast Cancer Screening-Mammogram 04/04/2020 04/04/2019, 05/06/2017, 05/05/2017 Influenza Vaccine (#1) 2024 2, 02/01/2021, 12/30/2019, Additional history exists DTaP/Tdap/Td Vaccine (2 - Td or Tdap) 02/26/2031 02/26/2021 Pneumococcal vaccine <65 Aged Out No longer eligible based on patient's age to complete this topic Procedures Procedure Name Priority Date/Time Associated Diagnosis Comments SCREENING MAMMOGRAM BILATERAL W CRISTIAN Schedule Routine, Read Routine (OP Routine) 04/04/2019 10:12 AM PHYSICIAN PRESIDENT Encounter for screening mammogram for malignant neoplasm of breast from Last 3 Months or Most Recently Relevant to Health Maintenance Results * Screening Mammogram Bilateral W Cristian (04/04/2019 10:12 AM PHYSICIAN PRESIDENT) Anatomical Region Laterality Modality Breast Bilateral Mammography 04/05/2019 3:22 PM PHYSICIAN PRESIDENT Impressions 04/05/2019 3:29 PM PHYSICIAN PRESIDENT No evidence of malignancy. Follow-up in 1 year with screening mammography is recommended. BI-RADS: 2 - Benign. The patient has been or will be contacted. The patient will be entered into a reminder system with a target due date of 1 year for her next mammogram. Electronically signed by: Titi Canela M.D. Narrative 04/05/2019 3:29 PM PHYSICIAN PRESIDENT EXAMINATION: SCREENING MAMMOGRAM BILATERAL W CRISTIAN ORDERING HEALTHCARE PROVIDER: LALA ARMANDO HISTORY: Routine screening mammography. COMPARISON: 05/05/2017 TECHNIQUE: CC and MLO views of the bilateral breasts were obtained with digital technique using breast tomosynthesis with C view. Computer aided detection was utilized. FINDINGS: There is scattered fibroglandular tissue There are no suspicious masses, calcifications, or architectural distortion. The right breast middle depth upper-inner quadrant focal asymmetry seen on the 05/05/2017 examination unchanged. Lala Armando JAVA WEBSPHERE DEVELOPER IMG MAMMO PROCEDURES Final Re sult from Last 3 Months or Most Recently Relevant to Health Maintenance Insurance [employer] [facility] Care Teams Senior Client Advisor Relationship Specialty Start Date End Date Melly Weston PA [address] [place] [id number] PCP - General Physician Spice Grinder 07/24/23
--- OUTSIDE RECORDS SUMMARY | 2024-09-20 21:10 | XMS_ITS | Referral Summary ---
Author Organization [facility] Virtual Care Address [facility] [place] [address] Phone Care Team Providers Care Clinical Laboratory Service Teacher Name Role Phone Melly Weston Primary Care Provider [phone] Encounters Date Type Department Care Team Description 09/19/2024 Telephone [facility] Ophthalmology [address] [place] [phone] Jameson Velasquez MD No Show 08/10/2024 Telephone [facility] Ophthalmology [facility] [address] [phone] Jameson Velasquez MD 08/05/2024 Telephone [facility] Ophthalmology [address] [place] [address] Outpatient Health [address] [place] [phone] Jameson Velasquez MD 08/04/2024 Documentation [facility] Ophthalmology [address] [place] [address] Outpatient Health [address] [place] [phone] Ana Caruso from Last 3 Months Allergies Active Allergy Reactions Criticality Noted Date [...] 02/22 Assessment & Plan (02/22/2021 12:54 PM 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 Gender Identity Not on file Sexual Orientation Not on file Last Filed Vital Signs Vital Sign Reading Time Taken Comments Blood Pressure 169/98 02/22/2024 9:50 AM BRASS INSTRUMENT REPAIR TECHNICIAN Pulse 72 02/22/2024 9:50 AM BRASS INSTRUMENT REPAIR TECHNICIAN Temperature - - Respiratory Rate - - Oxygen Saturation 98% 02/22/2024 9:50 AM BRASS INSTRUMENT REPAIR TECHNICIAN Inhaled Oxygen Concentration - - Weight 91.1 kg (200 lb 12.8 oz) 02/22/2024 9:50 AM BRASS INSTRUMENT REPAIR TECHNICIAN Height 159.5 cm (5' 2.8) 02/22/2024 9:50 AM BRASS INSTRUMENT REPAIR TECHNICIAN Body Mass Index 35.8 02/22/2024 9:50 AM BRASS INSTRUMENT REPAIR TECHNICIAN Plan of Treatment Not on file Procedures Procedure Name Priority Date/Time Associated Diagnosis Comments SCREENING MAMMOGRAM BILATERAL W CRISTIAN Schedule Routine, Read Routine (OP Routine) 04/04/2019 10:12 AM BRASS INSTRUMENT REPAIR TECHNICIAN Encounter for screening mammogram for malignant neoplasm of breast from Last 3 Months or Most Recently Relevant to Health Maintenance Results * Screening Mammogram Bilateral W Cristian (04/04/2019 10:12 AM BRASS INSTRUMENT REPAIR TECHNICIAN) Anatomical Region Laterality Modality Breast Bilateral Mammography 04/05/2019 3:22 PM BRASS INSTRUMENT REPAIR TECHNICIAN Impressions 04/05/2019 3:29 PM BRASS INSTRUMENT REPAIR TECHNICIAN No evidence of malignancy. Follow-up in 1 year with screening mammography is recommended. BI-RADS: 2 - Benign. The patient has been or will be contacted. The patient will be entered into a reminder system with a target due date of 1 year for her next mammogram. Electronically signed by: Titi Canela M.D. Narrative 04/05/2019 3:29 PM BRASS INSTRUMENT REPAIR TECHNICIAN EXAMINATION: SCREENING MAMMOGRAM BILATERAL W CRISTIAN ORDERING [...] asymmetry seen on the 05/05/2017 examination unchanged. us Lala Armando TELEMETRY NURSE IMG MAMMO PROCEDURES Final Re sult from Last 3 Months or Most Recently Relevant to Health Maintenance Insurance [employer] OOS Care Teams Clinical Laboratory Service Teacher Relationship Specialty Start Date End Date Melly Weston PA [address] [place] [phone] PCP - General Physician Dental Ceramist 07/24/23
--- OUTSIDE RECORDS SUMMARY | 2024-09-20 21:10 | XMS_ITS | Encounter Summary ---
Author Organization [facility] Address [address] [place] [address] Phone Care Team Providers Care Material Scheduler Name Role Phone Melly Weston Primary Care Provider [phone] Reason for Visit * Reason Onset Date Comments No Show 09/19/2024 Encounter Details Date Type Department Care Team (Late st Contact Info) Description 09/19/2024 Telephone [facility] Ophthalmology [address] [place], [place] [phone] Jameson Velasquez MD [address] [phone] No Show Social History Tobacco Use Types Packs/Day Years Used Date Smoking Tobacco: Never Passive Smoke Exposure: Never Smokeless Tobacco: Never AUDIT-C Answer Date Recorded Q1: How often [...] on file 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 Appointment was canceled due to no show reasons: Patient Illness. Comments: Per pt - they are not feeling well and r/s appt they had today. Patient informed of NOS Policy: Yes Letter was printed documented in this encounter Plan of Treatment Not on file documented as of this encounter Visit Diagnoses Not on filedocumented in this encounter Care Teams Material Scheduler Relationship Specialty Start Date End Date Melly Weston PA [address] [place] [phone] PCP - General Physician Demo Specialist 07/24/23 documented as of this encounter
[2024-09-20 22:23] VITALS: BP 151/73; PULSE 76; RESP 18; TEMP 36.6; O2SAT 99
== END 2024-09-20 22:27 | disposition home or self-care (01) ==
PROVIDERS: Emergency Provider Emergency Medicine; PCP Physician Assistant
DX: M79.604 Pain in right leg (principal); G89.29 Other chronic pain; K21.9 Gastro-esophageal reflux disease without esophagitis; I10 Essential (primary) hypertension
CPT/HCPCS: 93971; 99284